=== PATIENT | female | born 1930 ===

== ENCOUNTER 2018-01-30 10:21 | Emergency (ER) | payer MEDICARE, OTHER ==
[2018-01-30 10:21] VITALS: BMI 29.4
[2018-01-30 10:37] VITALS: O2SAT 96
[2018-01-30] MEDS ORDERED: Albuterol 0.083% Inhal Sol (2.5 mg/3 mL) UD IH STA (11:20)
[2018-01-30] MEDS ORDERED: Albuterol 0.083% Inhal Sol (2.5 mg/3 mL) UD ONE (11:28)
[2018-01-30 11:39] VITALS: RESP 18
--- NOTE | 2018-01-30 11:48 | CT ---
PROCEDURE: CT HEAD WITHOUT CONTRAST. HISTORY: head injury after fall COMPARISON: None available. TECHNIQUE: Axial computed tomography images were obtained through the head/brain without intravenous contrast. Radiation dose: Total exam DLP = 700.8 mGy-cm. This CT exam was performed using one or more of the following dose reduction techniques: Automated exposure control, adjustment of the mA and/or kV according to patient size, and/or use of iterative reconstruction technique. FINDINGS: HEMORRHAGE: No intracranial hemorrhage. BRAIN: No mass effect or edema. Atrophy. Chronic microvascular ischemic changes. VENTRICLES: Unremarkable. No hydrocephalus. CALVARIUM: Unremarkable. PARANASAL SINUSES: Unremarkable as visualized. No significant inflammatory changes. MASTOID AIR CELLS: Unremarkable as visualized. No inflammatory changes. OTHER FINDINGS: None. IMPRESSION: No acute intracranial pathology. Age-related changes.
--- NOTE | 2018-01-30 12:16 | RAD ---
PROCEDURE: Radiographs of the Right Shoulder HISTORY: right shoulder pain after fall COMPARISON: Not available FINDINGS: BONES: Comminuted fracture left femoral neck and. Minimally displaced fracture greater tuberosity. No dislocation. JOINTS: Glenoid grossly intact. Glenohumeral articulation and acromioclavicular articulation appear intact. SOFT TISSUES: Normal. OTHER FINDINGS: None. IMPRESSION: Comminuted minimally displaced fracture left femoral neck and head.
--- NOTE | 2018-01-30 12:18 | RAD ---
PROCEDURE: CHEST RADIOGRAPH, 1 VIEW HISTORY: sob, wheezing COMPARISON: None available. FINDINGS: LUNGS: Clear. PLEURA: No pneumothorax or pleural fluid seen. CARDIOVASCULAR: Normal. OSSEOUS STRUCTURES: Nondisplaced comminuted fracture right femoral neck and head. VISUALIZED UPPER ABDOMEN: Normal. OTHER FINDINGS: None. IMPRESSION: No acute infiltrate.
[2018-01-30 12:33] VITALS: BP 134/68; PULSE 82; TEMP 97.7
--- NOTE | 2018-01-30 12:41 | RAD ---
PROCEDURE: Radiographs of the right elbow. HISTORY: right elbow pain after fall COMPARISON: No prior. FINDINGS: BONES: Normal. No fracture. JOINTS: Normal. No osteoarthritis. SOFT TISSUES: Normal. JOINT EFFUSION: None. OTHER FINDINGS: None. IMPRESSION: Unremarkable radiographs of the right elbow.
--- NOTE | 2018-01-30 12:43 | RAD ---
PROCEDURE: Right Wrist Radiographs. HISTORY: right wirst pain after fall COMPARISON: None. FINDINGS: BONES: Normal. No fracture. JOINTS: Normal. No dislocation. SOFT TISSUES: Normal. OTHER FINDINGS: None. IMPRESSION: Normal right wrist radiographs.
--- NOTE | 2018-01-30 12:43 | RAD ---
PROCEDURE: Right Knee Radiographs. HISTORY: right knee pain after fall COMPARISON: None. FINDINGS: BONES: Normal. No fracture. JOINTS: Normal. No osteoarthritis. JOINT EFFUSION: None. OTHER FINDINGS: None. IMPRESSION: Normal radiographs of the right knee.
--- NOTE | 2018-01-30 12:45 | C.PDOC ---
History Of Present Illness 87-year-old female, PMHx includes asthma, presents to the emergency department for evaluation after a fall last night. Patient has a Hx of chronic dizziness and occasional fall because of it. Patient fell on the right side of her head, and is unsure of loss of consciousness. She is currently complaining of right arm and right shoulder pain. She is also complaining of mild shortness of breath and wheezing. No other complaints at this time. Time Seen by Provider: 01/30/18 10:58 Chief Complaint (Nursing): Dizziness/Lightheaded History Per: Patient History/Exam Limitations: no limitations Past Medical History Reviewed: Historical Data, Nursing Documentation, Vital Signs Vital Signs: Last Vital Signs Temp 97.7 F 01/30/18 12:32 Pulse 82 01/30/18 12:32 Resp 18 01/30/18 12:32 BP 134/68 01/30/18 12:32 Pulse Ox 96 01/30/18 16:11 - Medical History PMH: Arthritis, Asthma, Depression, Emphysema Surgical History: Appendectomy, Cholecystectomy Family History: States: No Known Family Hx - Social History Hx Tobacco Use: No Hx Alcohol Use: No Hx Substance Use: No - Immunization History Hx Tetanus Toxoid Vaccination: (k) Hx Influenza Vaccination: No Hx Pneumococcal Vaccination: Yes (2016) Review Of Systems Constitutional: Negative for: Fever Cardiovascular: Negative for: Chest Pain Respiratory: Positive for: Shortness of Breath, Wheezing Gastrointestinal: Negative for: Nausea, Vomiting Musculoskeletal: Positive for: Shoulder Pain, Arm Pain Neurological: Positive for: Dizziness. Negative for: Weakness, Numbness Physical Exam - Physical Exam Appears: Non-toxic, No Acute Distress, Other (moderate pain) Skin: Warm, Dry, No Rash Head: Atraumatic, Normacephalic Eye(s): bilateral: Normal Inspection, PERRL, EOMI Nose: Normal Oral Mucosa: Moist Lips: Normal Appearing Neck: Normal ROM Chest: Symmetrical Cardiovascular: Rhythm Regular, Murmur (3/6 systolic) Respiratory: No Accessory Muscle Use, Wheezing (mild, expiratory B/L) Extremity: Normal ROM, Tenderness (mild tenderness to palpation of the right elbow, wrist and knee. No deformity or swelling. There is some ecchymosis to the right knee), No Deformity, No Swelling Pulses: Left Radial: Normal, Right Radial: Normal Neurological/Psych: Oriented x3, Normal Speech ED Course And Treatment O2 Sat by Pulse Oximetry: 96 (RA) Pulse Ox Interpretation: Normal - Other Rad CXR X-Ray: Viewed By Me, Read By Radiologist Interpretation: Accession No. : [id number]. Patient Name / ID : MURALI HANDLEY / [id number]. Exam Date : 01/30/2018 11:31:46 ( Approved ). Study Comment : Sex / Age : F / 87Y. Creator : Han Bobo MD. Dictator : Han Bobo MD. Manager Massage Department : Director Immunology : Han Bobo MD. Approver2 : Report Date : 01/30/2018 12:17:02. My Comment : . PROCEDURE: CHEST RADIOGRAPH, 1 VIEW. HISTORY: sob, wheezing. COMPARISON: None available. FINDINGS: LUNGS: Clear. PLEURA: No pneumothorax or pleural fluid seen. CARDIOVASCULAR: Normal. OSSEOUS STRUCTURES: Nondisplaced comminuted fracture right femoral neck and head. VISUALIZED UPPER ABDOMEN: Normal. OTHER FINDINGS: None. IMPRESSION: No acute infiltrate. elbow xr X-Ray: Viewed By Me, Read By Radiologist Interpretation: Accession No. : [id number]. Patient Name / ID : MURALI HANDLEY / [id number]. Exam Date : 01/30/2018 11:52:05 ( Approved ). Study Comment : Sex / Age : F / 87Y. Creator : Han Bobo MD. Dictator : Han Bobo MD. Manager Massage Department : Director Immunology : Han Bobo MD. Approver2 : Report Date : 01/30/2018 12:39:50. My Comment : . PROCEDURE: Radiographs of the right elbow. HISTORY: right elbow pain after fall. COMPARISON: No prior. FINDINGS: BONES: Normal. No fracture. JOINTS: Normal. No osteoarthritis. SOFT TISSUES: Normal. JOINT EFFUSION: None. OTHER FINDINGS: None. IMPRESSION: Unremarkable radiographs of the right elbow. Shoulder xr X-Ray: Viewed By Me, Read By Radiologist Interpretation: Accession No. : [id number]. Patient Name / ID : MURALI HANDLEY / [id number]. Exam Date : 01/30/2018 11:46:05 ( Approved ). Study Comment : Sex / Age : F / 87Y. Creator : Han Bobo MD. Dictator : Han Bobo MD. Manager Massage Department : Director Immunology : Han Bobo MD. Approver2 : Report Date : 01/30/2018 12:15:11. My Comment : . PROCEDURE: Radiographs of the Right Shoulder. HISTORY: right shoulder pain after fall. COMPARISON: Not available. FINDINGS: BONES: Comminuted fracture left femoral neck and. Minimally displaced fracture greater tuberosity. No dislocation. JOINTS: Glenoid grossly intact. Glenohumeral articulation and acromioclavicular articulation appear intact. SOFT TISSUES: Normal. OTHER FINDINGS: None. IMPRESSION: Comminuted minimally displaced fracture left femoral neck and head. XR KNEE X-Ray: Viewed By Me, Read By Radiologist Interpretation: Accession No. : [id number]. Patient Name / ID : MURALI HANDLEY / [id number]. Exam Date : 01/30/2018 12:20:10 ( Approved ). Study Comment : Sex / Age : F / 87Y. Creator : Han Bobo MD. Dictator : Han Bobo MD. Manager Massage Department : Director Immunology : Han Bobo MD. Approver2 : Report Date : 01/30/2018 12:42:38. My Comment : . PROCEDURE: Right Knee Radiographs. HISTORY: right knee pain after fall. COMPARISON: None. FINDINGS: BONES: Normal. No fracture. JOINTS: Normal. No osteoarthritis. JOINT EFFUSION: None. OTHER FINDINGS: None. IMPRESSION: Normal radiographs of the right knee. XR WRIST X-Ray: Viewed By Me, Read By Radiologist Interpretation: Accession No. : [id number]. Patient Name / ID : MURALI HANDLEY / [id number]. Exam Date : 01/30/2018 12:16:10 ( Approved ). Study Comment : Sex / Age : F / 87Y. Creator : Han Bobo MD. Dictator : Han Bobo MD. Manager Massage Department : Director Immunology : Han Bobo MD. Approver2 : Report Date : 01/30/2018 12:41:59. My Comment : . PROCEDURE: Right Wrist Radiographs. . HISTORY: right wirst pain after fall. COMPARISON: None. FINDINGS: BONES: Normal. No fracture. JOINTS: Normal. No dislocation. SOFT TISSUES: Normal. OTHER FINDINGS: None. IMPRESSION: Normal right wrist radiographs. - CT Scan/US CT head Other Rad Studies (CT/US): Read By Radiologist, Radiology Report Reviewed CT/US Interpretation: Accession No. : [id number]. Patient Name / ID : MURALI HANDLEY / [id number]. Exam Date : 01/30/2018 11:38:37 ( Approved ). Study Comment : Sex / Age : F / 87Y. Creator : Mily Myers. Dictator : Cristóbal Vogt MD. Manager Massage Department : Director Immunology : Cristóbal Vogt MD. Approver2 : Report Date : 01/30/2018 11:45:37. My Comment : . PROCEDURE: CT HEAD WITHOUT CONTRAST. HISTORY: head injury after fall. COMPARISON: None available. TECHNIQUE: Axial computed tomography images were obtained through the head/brain without intravenous contrast. Radiation dose: Total exam DLP = 700.8 mGy-cm. This CT exam was performed using one or more of the following dose reduction techniques: Automated exposure control, adjustment of the mA and/or kV according to patient size, and/or use of iterative reconstruction technique. FINDINGS: HEMORRHAGE: No intracranial hemorrhage. BRAIN: No mass effect or edema. Atrophy. Chronic microvascular ischemic changes. VENTRICLES: Unremarkable. No hydrocephalus. CALVARIUM: Unremarkable. PARANASAL SINUSES: Unremarkable as visualized. No significant inflammatory changes. MASTOID AIR CELLS: Unremarkable as visualized. No inflammatory changes. OTHER FINDINGS: None. IMPRESSION: No acute intracranial pathology. Age-related changes. Progress Note: CT Head, Chest XR, XR Knee, elbow XR, shoulder XR, wrist XR ordered and reviewed. Patient treayed with Albuterol, Tylenol and prednisone. Pts arm placed in sling, instructed to f.u with ortho outpatient. All questions answered Disposition Counseled Patient/Family Regarding: Studies Performed, Diagnosis, Need For Followup, Rx Given - Disposition Referrals: [facility] at [place] [Outside] [facility] [place] [facility] [Outside] Disposition: HOME/ ROUTINE Disposition Time: 13:05 Condition: STABLE Additional Instructions: FOLLOW UP WITH ORTHOPEDICS WITHIN 1 WEEK USE MEDICATIONS DIRECTED RETURN TO EMERGENCY ROOM IF SYMPTOMS WORSEN SEGUIMIENTO CON ORTOPEDIA DENTRO DE 1 SEMANA USE MEDICAMENTOS SEGN LO INDICADO REGRESE AL SISSY DE EMERGENCIA SI LOS SNTOMAS EMPEORAN Prescriptions: Acetaminophen [Tylenol 325mg tab] 650 mg PO Q6 PRN #30 tab PRN Reason: pain/fever Acetaminophen with Codeine [Tylenol with Codeine #3 Tablet] 1 each PO Q6 PRN # 12 tablet PRN Reason: pain Albuterol HFA [Ventolin HFA 90 mcg/actuation (8 g)] 0.09 mg IH Q4 PRN #1 puff PRN Reason: Wheezing predniSONE [predniSONE Tab] 40 mg PO DAILY #6 tab Instructions: Asthma, Adult (DC), Shoulder Fracture (DC) Forms: [employer] (Malay) Print Language: FAROESE - POA Present On Arrival: None - Clinical Impression Clinical Impression: Closed right humeral fracture, Head injury, Closed head injury, Contusion of knee, right - Scribe Statement The provider has reviewed the documentation as recorded by the Scribe (Bridger Marks) All medical record entries made by the Scribe were at my direction and personally dictated by me. I have reviewed the chart and agree that the record accurately reflects my personal performance of the history, physical exam, medical decision making, and the department course for this patient. I have also personally directed, reviewed, and agree with the discharge instructions and disposition.
== END 2018-01-30 13:20 | disposition home or self-care (01) ==
LOC: C.ER 10:21
DX: S09.90XA Unspecified injury of head, initial encounter (principal); S42.301A Unspecified fracture of shaft of humerus, right arm, initial encounter for closed fracture; S80.01XA Contusion of right knee, initial encounter; W18.30XA Fall on same level, unspecified, initial encounter; Z91.81 History of falling; Y92.9 Unspecified place or not applicable; J45.909 Unspecified asthma, uncomplicated

== ENCOUNTER 2018-09-16 08:43 | Inpatient (IN) | payer MEDICARE, OTHER ==
[2018-09-16 08:43] VITALS: BMI 29.4
[2018-09-16] MEDS ORDERED: Sodium Bicarbonate (8.4%) 50 Meq Syringe ONE (09:05)
[2018-09-16] MEDS ORDERED: EPINEPHrine 1 mg/ml (1:1000) Inj ONE (09:05)
[2018-09-16 09:28] LABS: URINE BACTERIA RARE (<OCC); URINE BILIRUBIN NEGATIVE (NEGATIVE); URINE BLOOD 1+ (NEGATIVE); URINE CLARITY Clear (Clear); URINE COLOR Amber (YELLOW); URINE GLUCOSE (UA) NORMAL (Normal); URINE LEUKOCYTE ESTERASE NEG Leu/uL (Negative); URINE PROTEIN NEGATIVE (NEGATIVE)
[2018-09-16 09:31] LABS: ALB/GLOB RATIO 1.4 (1.0-2.1); ALBUMIN 3.9 g/dL (3.5-5.0); CALCIUM 8.1 mg/dl (8.6-10.4)
[2018-09-16 09:39] LABS: VENOUS BLOOD GAS BASE EXCESS -15.1 mmol/L (0.0-2.0); VENOUS BLOOD GAS PCO2 97 mmHg (40-60); VENOUS BLOOD GAS PO2 25 mm/Hg (30-55); VENOUS BLOOD PH 6.91 (7.32-7.43)
--- NOTE | 2018-09-16 09:47 | RAD ---
Date of service: 09/16/2018 PROCEDURE: CHEST RADIOGRAPH, 1 VIEW HISTORY: SOB COMPARISON: 01/30/2018 FINDINGS: LUNGS: Clear. PLEURA: No pneumothorax or pleural fluid seen. CARDIOVASCULAR: No aortic atherosclerotic calcification present. Normal heart size. ET tube appropriately positioned with its tip approximately 2.1 cm above tracheal simón. OSSEOUS STRUCTURES: No significant abnormalities. VISUALIZED UPPER ABDOMEN: Normal. OTHER FINDINGS: None. IMPRESSION: No infiltrate. ET tube appropriately positioned. Otherwise unremarkable.
--- NOTE | 2018-09-16 09:47 | C.PDOC ---
History Of Present Illness 87 year old female, whose past medical history includes asthma and hypertension, is brought to the ED by ambulance for evaluation of altered mental status noted by family prior to arrival. As per family, patient has been hypertensive lately and seemed to be delusional last night. Patient was found unresponsive today and was intubated in field. Family denies cough on patient's behalf. Additional information limited secondary to patient's clinical condition. Time Seen by Provider: 09/16/18 08:48 Chief Complaint (Nursing): Respiratory Distress History Per: EMS, Family History/Exam Limitations: clinical condition Onset/Duration Of Symptoms: Hrs Current Symptoms Are (Timing): Still Present Past Medical History Reviewed: Historical Data, Nursing Documentation, Vital Signs Vital Signs: Last Vital Signs Temp 99.8 F H 09/16/18 08:50 Pulse 158 H 09/16/18 08:50 Resp 18 09/16/18 08:50 BP 137/70 09/16/18 08:50 Pulse Ox 98 09/16/18 08:50 - Medical History PMH: Arthritis, Asthma, Depression, Emphysema Surgical History: Appendectomy, Cholecystectomy Family History: States: Unknown Family Hx - Social History Hx Tobacco Use: No Hx Alcohol Use: No Hx Substance Use: No - Immunization History Hx Tetanus Toxoid Vaccination: (unk) Hx Influenza Vaccination: No Hx Pneumococcal Vaccination: Yes (2017) Review Of Systems Review Of Systems: ROS cannot be obtained secondary to pt's inabilty to answer questions. Physical Exam - Physical Exam Appears: Other (in respiratory distress ) Skin: Warm, Dry, Other (mottled skin ) Head: Atraumatic, Normacephalic Eye(s): bilateral: Normal Inspection Oral Mucosa: Moist Throat: Other (7.0 ET tube- 24 at lipline ) Neck: Supple Chest: Symmetrical, No Deformity, No Tenderness Cardiovascular: Rhythm Regular, No Murmur Respiratory: Other (breath sounds present bilaterally ) Gastrointestinal/Abdominal: Other (protuberant abdomen ) Extremity: Capillary Refill (less than 2 seconds ) Neurological/Psych: Other (altered, unconscious ) ED Course And Treatment - Laboratory Results Result Diagrams: 09/16/18 16:17 09/16/18 09:13 O2 Sat by Pulse Oximetry: 98 Critical Care Time - Critical Care Note Total Time (in mins): 60 Documented critical care: time excludes all time spent performing seperately billable procedures. Medical Decision Making Medical Decision Making: Assessment: respiratory distress Plan: * bloodwork * urinalysis * CT Head * CXR * EKG * reassess and disposition Progress: Bloodwork, urinalysis, CT Head, CXR, EKG ordered and reviewed. Case discussed with Dr. Reich (Information Systems Manager design and sales consultant), who evaluated the patient at bedside and accepts to ICU. First EKG read: Sinus Tachycardia at rate 157bpm. Normal intervals, normal axis. T wave inversions in leads III and aVF. Patient went into cardiac arrest. Pulses was re-established. Second EKG read: Sinus Tachycardia at rate 127bpm. Right bundle branch block. Left posterior vesicular block. Case discussed with Dr. Balderas, who states patient is not a code heart or union laborer candidate. Dr. Reich (Information Systems Manager) and Dr. Marguerite Zhong (Hospitalist) are at bedside, and will assume the care of the patient. Disposition Counseled Patient/Family Regarding: Studies Performed, Diagnosis - Disposition Disposition: HOSPITALIZED Disposition Time: 11:00 Condition: SERIOUS - Clinical Impression Clinical Impression: Cardiac arrest - Scribe Statement The provider has reviewed the documentation as recorded by the Scribe (Avis Zhong) Provider Attestation: All medical record entries made by the Scribe were at my direction and personally dictated by me. I have reviewed the chart and agree that the record accurately reflects my personal performance of the history, physical exam, medical decision making, and the department course for this patient. I have also personally directed, reviewed, and agree with the discharge instructions and disposition.
[2018-09-16] MEDS ORDERED: Sodium Bicarbonate (8.4%) 50 Meq Syringe IVP ONE (09:58)
[2018-09-16] MEDS: WATER IVP SCH ×2 (09:59→11:58)
[2018-09-16] MEDS: SODIUM BICARBONATE IVP SCH ×2 (09:59→11:58)
[2018-09-16] MEDS: DEXTROSE 5% IVP SCH ×2 (09:59→11:58)
--- NOTE | 2018-09-16 10:08 | CP.PCM.CON ---
History of Present Illness - History of Present Illness History of Present Illness: ICU Consult Note for Dr. Reich 87 y/o female with PMHx of asthma, osteoporosis and osteoarthritis presents to the ED unconscious via EMS. Patient's son and daughter came with via EMS. Per daughter, Yanet, patient was found unconscious this morning. Last night, patient was wheezing in her sleep. However, Yanet states that it is nothing atypical as she has an extensive 50 year history of asthma. She denies her having any increased signs and symptoms of asthma exacerbation before she went to bed. Patient was admitted once to the hospital for asthma exacerbation last year per Yanet. Of note, for the past three days, patient had poor PO intake and required assistance to get out of bed. She was nearly bedbound for the past 3 days with the exception of going to the bathroom, which required assistance. At baseline, she is able to walk around the house. Yanet and her brother both think her recent behavior is atypical for her. They do not have any idea what caused her poor PO intake and staying in bed. Yanet has mentioned that patient recently started Sertraline 50 mg PO since her physician thought she was depressed. Otherwise she has been taking her routine medications for asthma. ROS unable to be obtained due to patient condition. Patient intubated and unconscious. History taken via Yanet, daughter. ED course: labs, CT head, troponin, ACLS protocol, UA/Ucx, insertion of right femoral TLC Outpatient physicians: [facility] Dud[facility] PMHx: as stated above PSHx: appy, clara FHx: denies SocHx: No EtOH, tob, or illicit drug use Meds: albuterol, spiriva, symbicort, prednisone daily via inhalers. Sertraline 50 mg PO. Allergies: PCN, Sulfa Review of Systems - Review of Systems Systems not reviewed;Unavailable: Acuity of Condition, Intubated Past Patient History - Past Social History Smoking Status: Never Smoked - PULMONARY Hx Asthma: Yes Hx Emphysema: Yes - MUSCULOSKELETAL/RHEUMATOLOGICAL Hx Arthritis: Yes - PSYCHIATRIC Hx Depression: Yes Hx Substance Use: No - SURGICAL HISTORY Hx Appendectomy: Yes Hx Cholecystectomy: Yes - ANESTHESIA Hx Anesthesia: Yes Hx Anesthesia Reactions: No Meds Allergies/Adverse Reactions: Allergies Allergy/AdvReac Type Severity Reaction Status Date / Time Penicillins Allergy Verified 09/16/18 09:13 sulfa Allergy Uncoded 09/16/18 09:13 Physical Exam - Constitutional Appears: Other (unconscious, intubated) - Head Exam Head Exam: ATRAUMATIC, NORMAL INSPECTION, NORMOCEPHALIC - ENT Exam Additional comments: Patient with dentures removed for intubation - Neck Exam Neck exam: Positive for: Normal Inspection - Respiratory Exam Respiratory Exam: Wheezes (bilaterally) - Cardiovascular Exam Cardiovascular Exam: Tachycardia - GI/Abdominal Exam GI & Abdominal Exam: Soft. absent: Guarding, Rebound, Tenderness - Extremities Exam Extremities exam: Positive for: normal capillary refill, normal inspection, pedal pulses present. Negative for: calf tenderness - Back Exam Back exam: NORMAL INSPECTION - Neurological Exam Neurological exam: Altered (unconscious w/o sedation) - Skin Skin Exam: Dry, Intact, Normal Color Results - Vital Signs Recent Vital Signs: Last Vital Signs Temp 99.8 F H 09/16/18 08:50 Pulse 158 H 09/16/18 08:50 Resp 18 09/16/18 08:50 BP 137/70 09/16/18 08:50 Pulse Ox 98 09/16/18 09:47 - Labs Result Diagrams: 09/16/18 10:05 09/16/18 09:13 Labs: Laboratory Results - last 24 hr 09/16/18 09/16/18 09/16/18 08:53 09:13 09:18 pO2 VBG pH VBG pCO2 VBG HCO3 VBG Total CO2 VBG O2 Sat (Calc) VBG Base Excess VBG Potassium Glucose Lactate Crit Value Called To Crit Value Called By Crit Value Read Back Blood Gas Notified Time Sodium 128 L Potassium 3.7 Chloride 91 L Carbon Dioxide 23 Anion Gap 17 BUN 27 H Creatinine 2.3 H Est GFR ( Amer) 24 Est GFR (Non-Af Amer) 20 POC Glucose (mg/dL) 224 H Random Glucose 202 H D Calcium 8.1 L Magnesium 2.5 H Total Bilirubin 1.0 AST 39 H ALT 30 Alkaline Phosphatase 93 NT-Pro-B Natriuret Pep 2640 H Total Protein 6.6 Albumin 3.9 Globulin 2.7 Albumin/Globulin Ratio 1.4 TSH 3rd Generation 0.30 L Venous Blood Potassium Urine Color Clara Urine Clarity Clear Urine pH 6.0 Ur Specific [place] 1.010 Urine Protein Negative Urine Glucose (UA) Normal Urine Ketones Negative Urine Blood 1+ H Urine Nitrate Positive H Urine Bilirubin Negative Urine Urobilinogen 4.0 H Ur Leukocyte Esterase Neg Urine WBC (Auto) 6 H Urine RBC (Auto) 11 H Urine Bacteria Rare 09/16/18 09:36 pO2 25 L VBG pH 6.91 L* VBG pCO2 97 H* VBG HCO3 10.9 VBG Total CO2 22.4 VBG O2 Sat (Calc) 28.0 L VBG Base Excess -15.1 L VBG Potassium 3.1 L Glucose 228 H Lactate 5.4 H* Crit Value Called To Crit Value Called By Abraham bernardo,mannequin sander and finisher Crit Value Read Back Y Blood Gas Notified Time 945 Sodium 130.0 L Potassium Chloride 97.0 L Carbon Dioxide Anion Gap BUN Creatinine Est GFR ( Amer) Est GFR (Non-Af Amer) POC Glucose (mg/dL) Random Glucose Calcium Magnesium Total Bilirubin AST ALT Alkaline Phosphatase NT-Pro-B Natriuret Pep Total Protein Albumin Globulin Albumin/Globulin Ratio TSH 3rd Generation Venous Blood Potassium 3.1 L Urine Color Urine Clarity Urine pH Ur Specific [place] Urine Protein Urine Glucose (UA) Urine Ketones Urine Blood Urine Nitrate Urine Bilirubin Urine Urobilinogen Ur Leukocyte Esterase Urine WBC (Auto) Urine RBC (Auto) Urine Bacteria Assessment & Plan - Assessment and Plan (Free Text) Assessment: 87 y/o female with PMHx of asthma, osteoporosis and osteoarthritis presents to the ED unconscious via EMS. Patient intubated and ACLS protocol completed. Patient stabilized and sent to ICU for further medical management. Neuro -patient unconscious on presentation -intubated but not sedated, not alert or awake -CT head pending -Consider CTA CV -s/p cardiac arrest with ACLS protocol: bradycardia, epi x 2, Calcium gluconate, epi. R femoral TLC inserted in ED. -EKG: sinus tachycardia -pending serial trops - first positive. BNP 2640. Family denies cardiac hx. -cardio consult on board Dr. Ray, follow recs -ECHO pending GI -NPO -no acute issues Pulm -vent settings: PRVC rate 20, FiO2 100%, TV 450, PEEP 5 -ABG in ED: pH 7.06, pO2 74, pCO2 25, HCO3 7.6, O2 sat 95.9, metabolic acidosis -history of asthma: hold home meds -daily serial ABG and CXR when intubated Renal -Patient with pos nitrates and WBC in urine, pending urine cx -Renal injury evidenced on BUN/Cr on admission 27/2.3 -trend CMP daily Heme -consider heparin drip if CT head negative for hemmorhage -normocytic anemia on admission 9.7/28.7, but not on past records in 2013 -trend CBC daily ID -leukocytosis on admission 14.3 and evidence of UTI -pending urine cx and blood cx -start ceftriaxone 1g IV daily DVT ppx: pending CT head, possible heparin GI ppx: protonix 40 mg IV case discussed w/ Dr. Reich, ICU attending and Dr. Jc Bernardo, hospitalist Saige Hunt PGY1
[2018-09-16 10:10] LABS: BASO # 0.1 K/uL (0.0-0.2); BASO % 0.4 % (0.0-2.0); EOS % 0.1 % (0.0-4.0); HEMOGLOBIN 9.7 g/dL (11.0-16.0); LYMPH # 2.6 K/uL (1.0-4.3); LYMPH % 17.8 % (20.0-40.0); MEAN CORPUSCULAR HEMOGLOBIN 30.6 pg (27.0-31.0); MEAN CORPUSCULAR HGB CONC 33.6 g/dL (33.0-37.0); MEAN PLATELET VOLUME 7.6 fL (7.2-11.7); MONO # 0.5 K/uL (0.0-0.8); MONO % 3.8 % (0.0-10.0); NEUT # 11.1 K/uL (1.8-7.0); NEUT % 77.9 % (50.0-75.0); RBC 3.15 Mil/uL (3.80-5.20); RED CELL DISTRIBUTION WIDTH 12.9 % (11.5-14.5)
[2018-09-16 10:11] LABS: WHITE BLOOD COUNT 14.3 K/uL (4.8-10.8)
[2018-09-16] MEDS ORDERED: Sodium Bicarbonate (8.4%) 50 Meq Syringe IVP SCH (10:15)
[2018-09-16 10:19] LABS: ABG ALLEN TEST POS; ARTERIAL BLOOD GAS HCO3 7.6 mmol/L (21-28); ARTERIAL BLOOD GAS O2 SAT 95.9 % (95-98); ARTERIAL BLOOD GAS PCO2 25 mm/Hg (35-45); ARTERIAL BLOOD GAS PH 7.06 (7.35-7.45); ARTERIAL BLOOD GAS PO2 74 mm/Hg (80-100); ARTERIAL BLOOD GAS TCO2 7.9 mmol/L (22-28)
[2018-09-16] MEDS ORDERED: DOPamine 400mg/250ml D5W 400 MG/250 ML BAG IV PRN (10:25)
[2018-09-16] MEDS ORDERED: DOPamine 400mg/250ml D5W 400 MG/250 ML BAG IV ONE (10:29)
[2018-09-16 10:34] LABS: INR 1.6; PROTHROMBIN TIME 17.6 SECONDS (9.7-12.2)
[2018-09-16 10:34] LABS: TROPONIN I 0.181 ng/mL (0.00-0.120)
--- NOTE | 2018-09-16 11:15 | CP.PCM.HP ---
<Saige Hunt - Last Filed: 09/16/18 11:15> History of Present Illness - History of Present Illness History of Present Illness: Medicine History and Physical for Dr. Marguerite Bernardo 87 y/o female with PMHx of asthma, osteoporosis and osteoarthritis presents to the ED unconscious via EMS. Patient's son and daughter came with via EMS. Per daughter, Yanet, patient was found unconscious this morning. Last night, patient was wheezing in her sleep. However, Yanet states that it is nothing atypical as she has an extensive 50 year history of asthma. She denies her having any increased signs and symptoms of asthma exacerbation before she went to bed. Patient was admitted once to the hospital for asthma exacerbation last year per Yanet. Of note, for the past three days, patient had poor PO intake and required assistance to get out of bed. She was nearly bedbound for the past 3 days with the exception of going to the bathroom, which required assistance. At baseline, she is able to walk around the house. Yanet and her brother both think her recent behavior is atypical for her. They do not have any idea what caused her poor PO intake and staying in bed. Yanet has mentioned that patient recently started Sertraline 50 mg PO since her physician thought she was depressed. Otherwise she has been taking her routine medications for asthma. ROS unable to be obtained due to patient condition. Patient intubated and unconscious. History taken via Yanet, daughter. ED course: labs, CT head, troponin, ACLS protocol, UA/Ucx, insertion of right femoral TLC Outpatient physicians: [facility] Dudley ([facility] PMHx: as stated above PSHx: appy, clara FHx: denies SocHx: No EtOH, tob, or illicit drug use Meds: albuterol, spiriva, symbicort, prednisone daily via inhalers. Sertraline 50 mg PO. Allergies: PCN, Sulfa Present on Admission - Present on Admission Any Indicators Present on Admission: Yes Review of Systems - Review of Systems Systems not reviewed;Unavailable: Acuity of Condition, Intubated Past Patient History - Past Social History Smoking Status: Never Smoked - PULMONARY Hx Asthma: Yes Hx Emphysema: Yes - MUSCULOSKELETAL/RHEUMATOLOGICAL Hx Arthritis: Yes - PSYCHIATRIC Hx Depression: Yes Hx Substance Use: No - SURGICAL HISTORY Hx Appendectomy: Yes Hx Cholecystectomy: Yes - ANESTHESIA Hx Anesthesia: Yes Hx Anesthesia Reactions: No Meds Allergies/Adverse Reactions: Allergies Allergy/AdvReac Type Severity Reaction Status Date / Time Penicillins Allergy Verified 09/16/18 09:13 sulfa Allergy Uncoded 09/16/18 09:13 Physical Exam - Constitutional Appears: Other (unconscious w/o sedation, intubated) - Head Exam Head Exam: ATRAUMATIC, NORMAL INSPECTION, NORMOCEPHALIC - Eye Exam Eye Exam: PERRL - ENT Exam Additional comments: dentures removed for intubation - Neck Exam Neck exam: Positive for: Normal Inspection - Respiratory Exam Respiratory Exam: Wheezes (bilateral) - Cardiovascular Exam Cardiovascular Exam: Tachycardia - GI/Abdominal Exam GI & Abdominal Exam: Soft. absent: Firm, Guarding, Rebound - Extremities Exam Extremities exam: Positive for: normal capillary refill, normal inspection, pedal pulses present. Negative for: calf tenderness, tenderness - Back Exam Back exam: NORMAL INSPECTION - Neurological Exam Neurological exam: Altered (unconscious w/o sedation) - Skin Skin Exam: Dry, Intact, Normal Color Results - Vital Signs Recent Vital Signs: Last Vital Signs Temp 99.8 F H 09/16/18 08:50 Pulse 152 H 09/16/18 10:29 Resp 20 09/16/18 10:29 BP 87/46 L 09/16/18 10:29 Pulse Ox 96 09/16/18 10:29 - Labs Result Diagrams: 09/16/18 10:05 09/16/18 09:13 Labs: Laboratory Results - last 24 hr 09/16/18 09/16/18 09/16/18 08:53 09:13 09:18 WBC RBC Hgb Hct MCV MCH MCHC RDW Plt Count MPV Neut % (Auto) Lymph % (Auto) [place] % (Auto) Eos % (Auto) Baso % (Auto) Neut # (Auto) Lymph # (Auto) [place] # (Auto) Eos # (Auto) Baso # (Auto) PT INR APTT Puncture Site pCO2 pO2 HCO3 ABG pH ABG Total CO2 ABG O2 Saturation ABG Base Excess Bebo Test ABG Potassium VBG pH VBG pCO2 VBG HCO3 VBG Total CO2 VBG O2 Sat (Calc) VBG Base Excess VBG Potassium A-a O2 Difference Respiratory Index Glucose Lactate Vent Mode Mechanical Rate FiO2 Tidal Volume PEEP Crit Value Called To Crit Value Called By Crit Value Read Back Blood Gas Notified Time Sodium 128 L Potassium 3.7 Chloride 91 L Carbon Dioxide 23 Anion Gap 17 BUN 27 H Creatinine 2.3 H Est GFR ( Amer) 24 Est GFR (Non-Af Amer) 20 POC Glucose (mg/dL) 224 H Random Glucose 202 H D Calcium 8.1 L Magnesium 2.5 H Total Bilirubin 1.0 AST 39 H ALT 30 Alkaline Phosphatase 93 Troponin I 0.1810 H* NT-Pro-B Natriuret Pep 2640 H Total Protein 6.6 Albumin 3.9 Globulin 2.7 Albumin/Globulin Ratio 1.4 TSH 3rd Generation 0.30 L Arterial Blood Potassium Venous Blood Potassium Urine Color Clara Urine Clarity Clear Urine pH 6.0 Ur Specific Watts 1.010 Urine Protein Negative Urine Glucose (UA) Normal Urine Ketones Negative Urine Blood 1+ H Urine Nitrate Positive H Urine Bilirubin Negative Urine Urobilinogen 4.0 H Ur Leukocyte Esterase Neg Urine WBC (Auto) 6 H Urine RBC (Auto) 11 H Urine Bacteria Rare 09/16/18 09/16/18 09/16/18 09:36 10:05 10:05 WBC 14.3 H D RBC 3.15 L Hgb 9.7 L Hct 28.7 L MCV 91.0 D MCH 30.6 MCHC 33.6 RDW 12.9 Plt Count 212 D MPV 7.6 Neut % (Auto) 77.9 H Lymph % (Auto) 17.8 L [place] % (Auto) 3.8 Eos % (Auto) 0.1 Baso % (Auto) 0.4 Neut # (Auto) 11.1 H Lymph # (Auto) 2.6 [place] # (Auto) 0.5 Eos # (Auto) 0.0 Baso # (Auto) 0.1 PT 17.6 H INR 1.6 APTT 49 H Puncture Site pCO2 pO2 25 L HCO3 ABG pH ABG Total CO2 ABG O2 Saturation ABG Base Excess Bebo Test ABG Potassium VBG pH 6.91 L* VBG pCO2 97 H* VBG HCO3 10.9 VBG Total CO2 22.4 VBG O2 Sat (Calc) 28.0 L VBG Base Excess -15.1 L VBG Potassium 3.1 L A-a O2 Difference Respiratory Index Glucose 228 H Lactate 5.4 H* Vent Mode Mechanical Rate FiO2 Tidal Volume PEEP Crit Value Called To Crit Value Called By Abraham bernardo,mint machine operator Crit Value Read Back Y Blood Gas Notified Time 945 Sodium 130.0 L Potassium Chloride 97.0 L Carbon Dioxide Anion Gap BUN Creatinine Est GFR ( Amer) Est GFR (Non-Af Amer) POC Glucose (mg/dL) Random Glucose Calcium Magnesium Total Bilirubin AST ALT Alkaline Phosphatase Troponin I NT-Pro-B Natriuret Pep Total Protein Albumin Globulin Albumin/Globulin Ratio TSH 3rd Generation Arterial Blood Potassium Venous Blood Potassium 3.1 L Urine Color Urine Clarity Urine pH Ur Specific Watts Urine Protein Urine Glucose (UA) Urine Ketones Urine Blood Urine Nitrate Urine Bilirubin Urine Urobilinogen Ur Leukocyte Esterase Urine WBC (Auto) Urine RBC (Auto) Urine Bacteria 09/16/18 10:15 WBC RBC Hgb Hct MCV MCH MCHC RDW Plt Count MPV Neut % (Auto) Lymph % (Auto) [place] % (Auto) Eos % (Auto) Baso % (Auto) Neut # (Auto) Lymph # (Auto) [place] # (Auto) Eos # (Auto) Baso # (Auto) PT INR APTT Puncture Site Rra pCO2 25 L pO2 74 L HCO3 7.6 L* ABG pH 7.06 L* ABG Total CO2 7.9 L ABG O2 Saturation 95.9 ABG Base Excess -21.8 L Bebo Test Pos ABG Potassium 3.0 L VBG pH VBG pCO2 VBG HCO3 VBG Total CO2 VBG O2 Sat (Calc) VBG Base Excess VBG Potassium A-a O2 Difference 608.0 Respiratory Index 8.2 Glucose 76 Lactate 2.7 H Vent Mode Prvc Mechanical Rate 20 FiO2 100.0 Tidal Volume 450 PEEP 5 Crit Value Called To Crit Value Called By Tai bernardo,mint machine operator Crit Value Read Back Y Blood Gas Notified Time 1020 Sodium 141.0 Potassium Chloride 125.0 H Carbon Dioxide Anion Gap BUN Creatinine Est GFR ( Amer) Est GFR (Non-Af Amer) POC Glucose (mg/dL) Random Glucose Calcium Magnesium Total Bilirubin AST ALT Alkaline Phosphatase Troponin I NT-Pro-B Natriuret Pep Total Protein Albumin Globulin Albumin/Globulin Ratio TSH 3rd Generation Arterial Blood Potassium 3.0 L Venous Blood Potassium Urine Color Urine Clarity Urine pH Ur Specific Watts Urine Protein Urine Glucose (UA) Urine Ketones Urine Blood Urine Nitrate Urine Bilirubin Urine Urobilinogen Ur Leukocyte Esterase Urine WBC (Auto) Urine RBC (Auto) Urine Bacteria Assessment & Plan - Assessment and Plan (Free Text) Assessment: 87 y/o female with PMHx of asthma, osteoporosis and osteoarthritis presents to the ED unconscious via EMS. Patient intubated and ACLS protocol completed. Patient stabilized and sent to ICU for further medical management. Neuro -patient unconscious on presentation -intubated but not sedated, not alert or awake -CT head pending -Consider CTA CV -s/p cardiac arrest with ACLS protocol: bradycardia, epi x 2, Calcium gluconate, epi. R femoral TLC inserted in ED. -EKG: sinus tachycardia -pending serial trops - first positive. BNP 2640. Family denies cardiac hx. -cardio consult on board Dr. Ray, follow recs -ECHO pending GI -NPO -no acute issues Pulm -vent settings: PRVC rate 20, FiO2 100%, TV 450, PEEP 5 -ABG in ED: pH 7.06, pO2 74, pCO2 25, HCO3 7.6, O2 sat 95.9, metabolic acidosis -history of asthma: hold home meds -daily serial ABG and CXR when intubated Renal -Patient with pos nitrates and WBC in urine, pending urine cx -Renal injury evidenced on BUN/Cr on admission 27/2.3 -trend CMP daily Heme -consider heparin drip if CT head negative for hemmorhage -normocytic anemia on admission 9.7/28.7, but not on past records in 2013 -trend CBC daily ID -leukocytosis on admission 14.3 and evidence of UTI -pending urine cx and blood cx -consider abx if patient becomes febrile and/or positive cultures, hold abx for now DVT ppx: pending CT head, possible heparin GI ppx: protonix 40 mg IV case discussed w/ Dr. Reich, ICU attending and Dr. Jc Bernardo, hospitalist Saige Hunt PGY1 <Chun Bernardo - Last Filed: 09/18/18 02:58> Results - Vital Signs Recent Vital Signs: Last Vital Signs Temp 91.3 F L 09/18/18 01:30 Pulse 83 09/18/18 01:30 Resp 24 09/18/18 01:30 BP 91/49 L 09/18/18 01:30 Pulse Ox 88 L 09/18/18 01:00 - Labs Result Diagrams: 09/18/18 00:37 09/18/18 00:37 Labs: Laboratory Results - last 24 hr 09/17/18 09/17/18 09/17/18 03:21 04:18 05:27 WBC RBC Hgb Hct MCV MCH MCHC RDW Plt Count MPV Neut % (Auto) Lymph % (Auto) [place] % (Auto) Eos % (Auto) Baso % (Auto) Neut # (Auto) Lymph # (Auto) [place] # (Auto) Eos # (Auto) Baso # (Auto) Neutrophils % (Manual) Band Neutrophils % Lymphocytes % (Manual) Monocytes % (Manual) Toxic Granulation Platelet Estimate Large Platelets Polychromasia Poikilocytosis (manual Anisocytosis (manual) Bravo Cells Acanthocytes (Spur) Schistocytes PT INR APTT Puncture Site Rr pCO2 48 H pO2 149 H HCO3 16.0 L ABG pH 7.16 L* ABG Total CO2 18.6 L ABG O2 Saturation 98.6 H ABG Base Excess -11.5 L Bebo Test Pos ABG Potassium 4.1 A-a O2 Difference 504.0 Respiratory Index 3.4 Sodium 126.0 L Chloride 94.0 L Glucose 239 H Lactate 7.7 H* Vent Mode Prvc Mechanical Rate 20 FiO2 100.0 Tidal Volume 450 PEEP 5 Crit Value Called To Halina rn Crit Value Called By Juan Francisco mint machine operator Crit Value Read Back Y Blood Gas Notified Time 545 Potassium Carbon Dioxide Anion Gap BUN Creatinine Est GFR ( Amer) Est GFR (Non-Af Amer) POC Glucose (mg/dL) 337 H 290 H Random Glucose Lactic Acid Calcium Phosphorus Magnesium Total Bilirubin AST ALT Alkaline Phosphatase Troponin I Total Protein Albumin Globulin Albumin/Globulin Ratio Arterial Blood Potassium 4.1 Random Vancomycin Urine Opiates Screen Urine Methadone Screen Ur Barbiturates Screen Ur Phencyclidine Scrn Ur Amphetamines Screen U Benzodiazepines Scrn U Oth Cocaine Metabols U Cannabinoids Screen Influenza Typ A,B (EIA) Ur L.pneumophila Ag 09/17/18 09/17/18 09/17/18 05:35 05:47 05:47 WBC 18.1 H RBC 4.06 Hgb 12.2 Hct 36.9 MCV 90.8 MCH 29.9 MCHC 33.0 RDW 13.0 Plt Count 169 MPV 7.7 Neut % (Auto) 94.3 H Lymph % (Auto) 2.0 L [place] % (Auto) 3.4 Eos % (Auto) 0.1 Baso % (Auto) 0.2 Neut # (Auto) 17.0 H Lymph # (Auto) 0.4 L [place] # (Auto) 0.6 Eos # (Auto) 0.0 Baso # (Auto) 0.0 Neutrophils % (Manual) 74 Band Neutrophils % 19 H* Lymphocytes % (Manual) 2 L Monocytes % (Manual) 5 Toxic Granulation Platelet Estimate Normal Large Platelets Polychromasia Poikilocytosis (manual Anisocytosis (manual) Bravo Cells Acanthocytes (Spur) Schistocytes PT INR APTT Puncture Site pCO2 pO2 HCO3 ABG pH ABG Total CO2 ABG O2 Saturation ABG Base Excess Bebo Test ABG Potassium A-a O2 Difference Respiratory Index Sodium 127 L Chloride 93 L Glucose Lactate Vent Mode Mechanical Rate FiO2 Tidal Volume PEEP Crit Value Called To Crit Value Called By Crit Value Read Back Blood Gas Notified Time Potassium 4.4 Carbon Dioxide 18 L Anion Gap 20 BUN 35 H Creatinine 2.1 H Est GFR ( Amer) 27 Est GFR (Non-Af Amer) 22 POC Glucose (mg/dL) 275 H Random Glucose 228 H D Lactic Acid Calcium 7.3 L Phosphorus 5.4 H Magnesium 1.8 Total Bilirubin 0.7 AST 428 H D ALT 384 H D Alkaline Phosphatase 126 D Troponin I 1.8400 H* Total Protein 5.1 L Albumin 2.8 L Globulin 2.3 Albumin/Globulin Ratio 1.2 Arterial Blood Potassium Random Vancomycin Urine Opiates Screen Urine Methadone Screen Ur Barbiturates Screen Ur Phencyclidine Scrn Ur Amphetamines Screen U Benzodiazepines Scrn U Oth Cocaine Metabols U Cannabinoids Screen Influenza Typ A,B (EIA) Ur L.pneumophila Ag 09/17/18 09/17/18 09/17/18 05:47 06:14 07:06 WBC RBC Hgb Hct MCV MCH MCHC RDW Plt Count MPV Neut % (Auto) Lymph % (Auto) [place] % (Auto) Eos % (Auto) Baso % (Auto) Neut # (Auto) Lymph # (Auto) [place] # (Auto) Eos # (Auto) Baso # (Auto) Neutrophils % (Manual) Band Neutrophils % Lymphocytes % (Manual) Monocytes % (Manual) Toxic Granulation Platelet Estimate Large Platelets Polychromasia Poikilocytosis (manual Anisocytosis (manual) Bravo Cells Acanthocytes (Spur) Schistocytes PT INR APTT Puncture Site pCO2 pO2 HCO3 ABG pH ABG Total CO2 ABG O2 Saturation ABG Base Excess Bebo Test ABG Potassium A-a O2 Difference Respiratory Index Sodium Chloride Glucose Lactate Vent Mode Mechanical Rate FiO2 Tidal Volume PEEP Crit Value Called To Crit Value Called By Crit Value Read Back Blood Gas Notified Time Potassium Carbon Dioxide Anion Gap BUN Creatinine Est GFR ( Amer) Est GFR (Non-Af Amer) POC Glucose (mg/dL) 328 H 274 H Random Glucose Lactic Acid 7.6 H* Calcium Phosphorus Magnesium Total Bilirubin AST ALT Alkaline Phosphatase Troponin I Total Protein Albumin Globulin Albumin/Globulin Ratio Arterial Blood Potassium Random Vancomycin Urine Opiates Screen Urine Methadone Screen Ur Barbiturates Screen Ur Phencyclidine Scrn Ur Amphetamines Screen U Benzodiazepines Scrn U Oth Cocaine Metabols U Cannabinoids Screen Influenza Typ A,B (EIA) Ur L.pneumophila Ag 09/17/18 09/17/18 09/17/18 07:21 08:11 09:02 WBC RBC Hgb Hct MCV MCH MCHC RDW Plt Count MPV Neut % (Auto) Lymph % (Auto) [place] % (Auto) Eos % (Auto) Baso % (Auto) Neut # (Auto) Lymph # (Auto) [place] # (Auto) Eos # (Auto) Baso # (Auto) Neutrophils % (Manual) Band Neutrophils % Lymphocytes % (Manual) Monocytes % (Manual) Toxic Granulation Platelet Estimate Large Platelets Polychromasia Poikilocytosis (manual Anisocytosis (manual) Bravo Cells Acanthocytes (Spur) Schistocytes PT INR APTT Puncture Site pCO2 pO2 HCO3 ABG pH ABG Total CO2 ABG O2 Saturation ABG Base Excess Bebo Test ABG Potassium A-a O2 Difference Respiratory Index Sodium Chloride Glucose Lactate Vent Mode Mechanical Rate FiO2 Tidal Volume PEEP Crit Value Called To Crit Value Called By Crit Value Read Back Blood Gas Notified Time Potassium Carbon Dioxide Anion Gap BUN Creatinine Est GFR ( Amer) Est GFR (Non-Af Amer) POC Glucose (mg/dL) 252 H 220 H 210 H Random Glucose Lactic Acid Calcium Phosphorus Magnesium Total Bilirubin AST ALT Alkaline Phosphatase Troponin I Total Protein Albumin Globulin Albumin/Globulin Ratio Arterial Blood Potassium Random Vancomycin Urine Opiates Screen Urine Methadone Screen Ur Barbiturates Screen Ur Phencyclidine Scrn Ur Amphetamines Screen U Benzodiazepines Scrn U Oth Cocaine Metabols U Cannabinoids Screen Influenza Typ A,B (EIA) Ur L.pneumophila Ag 09/17/18 09/17/18 09/17/18 10:06 10:33 11:02 WBC RBC Hgb Hct MCV MCH MCHC RDW Plt Count MPV Neut % (Auto) Lymph % (Auto) [place] % (Auto) Eos % (Auto) Baso % (Auto) Neut # (Auto) Lymph # (Auto) [place] # (Auto) Eos # (Auto) Baso # (Auto) Neutrophils % (Manual) Band Neutrophils % Lymphocytes % (Manual) Monocytes % (Manual) Toxic Granulation Platelet Estimate Large Platelets Polychromasia Poikilocytosis (manual Anisocytosis (manual) Wheatcroft Cells Acanthocytes (Spur) Schistocytes PT INR APTT Puncture Site pCO2 pO2 HCO3 ABG pH ABG Total CO2 ABG O2 Saturation ABG Base Excess Bebo Test ABG Potassium A-a O2 Difference Respiratory Index Sodium Chloride Glucose Lactate Vent Mode Mechanical Rate FiO2 Tidal Volume PEEP Crit Value Called To Crit Value Called By Crit Value Read Back Blood Gas Notified Time Potassium Carbon Dioxide Anion Gap BUN Creatinine Est GFR ( Amer) Est GFR (Non-Af Amer) POC Glucose (mg/dL) 168 H 188 H Random Glucose Lactic Acid Calcium Phosphorus Magnesium Total Bilirubin AST ALT Alkaline Phosphatase Troponin I Total Protein Albumin Globulin Albumin/Globulin Ratio Arterial Blood Potassium Random Vancomycin Urine Opiates Screen Negative Urine Methadone Screen Negative Ur Barbiturates Screen Negative Ur Phencyclidine Scrn Negative Ur Amphetamines Screen Negative U Benzodiazepines Scrn Negative U Oth Cocaine Metabols Negative U Cannabinoids Screen Negative Influenza Typ A,B (EIA) Ur L.pneumophila Ag 09/17/18 09/17/18 09/17/18 12:07 12:12 12:12 WBC RBC Hgb Hct MCV MCH MCHC RDW Plt Count MPV Neut % (Auto) Lymph % (Auto) [place] % (Auto) Eos % (Auto) Baso % (Auto) Neut # (Auto) Lymph # (Auto) [place] # (Auto) Eos # (Auto) Baso # (Auto) Neutrophils % (Manual) Band Neutrophils % Lymphocytes % (Manual) Monocytes % (Manual) Toxic Granulation Platelet Estimate Large Platelets Polychromasia Poikilocytosis (manual Anisocytosis (manual) Wheatcroft Cells Acanthocytes (Spur) Schistocytes PT INR APTT Puncture Site pCO2 pO2 HCO3 ABG pH ABG Total CO2 ABG O2 Saturation ABG Base Excess Bebo Test ABG Potassium A-a O2 Difference Respiratory Index Sodium Chloride Glucose Lactate Vent Mode Mechanical Rate FiO2 Tidal Volume PEEP Crit Value Called To Crit Value Called By Crit Value Read Back Blood Gas Notified Time Potassium Carbon Dioxide Anion Gap BUN Creatinine Est GFR ( Amer) Est GFR (Non-Af Amer) POC Glucose (mg/dL) 127 H Random Glucose Lactic Acid 6.4 H* Calcium Phosphorus Magnesium Total Bilirubin AST ALT Alkaline Phosphatase Troponin I Total Protein Albumin Globulin Albumin/Globulin Ratio Arterial Blood Potassium Random Vancomycin Urine Opiates Screen Urine Methadone Screen Ur Barbiturates Screen Ur Phencyclidine Scrn Ur Amphetamines Screen U Benzodiazepines Scrn U Oth Cocaine Metabols U Cannabinoids Screen Influenza Typ A,B (EIA) Negative for flu a/b Ur L.pneumophila Ag 09/17/18 09/17/18 09/17/18 12:12 12:12 12:12 WBC 16.1 H RBC 3.68 L Hgb 11.1 Hct 33.0 L MCV 89.7 MCH 30.2 MCHC 33.7 RDW 12.8 Plt Count 155 MPV 7.7 Neut % (Auto) 92.7 H Lymph % (Auto) 3.0 L [place] % (Auto) 3.8 Eos % (Auto) 0.0 Baso % (Auto) 0.5 Neut # (Auto) 14.9 H Lymph # (Auto) 0.5 L [place] # (Auto) 0.6 Eos # (Auto) 0.0 Baso # (Auto) 0.1 Neutrophils % (Manual) 63 Band Neutrophils % 30 H* Lymphocytes % (Manual) 4 L Monocytes % (Manual) 3 Toxic Granulation Present Platelet Estimate Normal Large Platelets Present Polychromasia Slight Poikilocytosis (manual Slight Anisocytosis (manual) Slight Wheatcroft Cells Moderate Acanthocytes (Spur) Schistocytes PT 18.2 H INR 1.7 APTT 32 D Puncture Site pCO2 pO2 HCO3 ABG pH ABG Total CO2 ABG O2 Saturation ABG Base Excess Bebo Test ABG Potassium A-a O2 Difference Respiratory Index Sodium Chloride Glucose Lactate Vent Mode Mechanical Rate FiO2 Tidal Volume PEEP Crit Value Called To Crit Value Called By Crit Value Read Back Blood Gas Notified Time Potassium Carbon Dioxide Anion Gap BUN Creatinine Est GFR ( Amer) Est GFR (Non-Af Amer) POC Glucose (mg/dL) Random Glucose Lactic Acid Calcium Phosphorus Magnesium Total Bilirubin AST ALT Alkaline Phosphatase Troponin I Total Protein Albumin Globulin Albumin/Globulin Ratio Arterial Blood Potassium Random Vancomycin < 5.0 Urine Opiates Screen Urine Methadone Screen Ur Barbiturates Screen Ur Phencyclidine Scrn Ur Amphetamines Screen U Benzodiazepines Scrn U Oth Cocaine Metabols U Cannabinoids Screen Influenza Typ A,B (EIA) Ur L.pneumophila Ag 09/17/18 09/17/18 09/17/18 12:12 13:06 14:23 WBC RBC Hgb Hct MCV MCH MCHC RDW Plt Count MPV Neut % (Auto) Lymph % (Auto) [place] % (Auto) Eos % (Auto) Baso % (Auto) Neut # (Auto) Lymph # (Auto) [place] # (Auto) Eos # (Auto) Baso # (Auto) Neutrophils % (Manual) Band Neutrophils % Lymphocytes % (Manual) Monocytes % (Manual) Toxic Granulation Platelet Estimate Large Platelets Polychromasia Poikilocytosis (manual Anisocytosis (manual) Wheatcroft Cells Acanthocytes (Spur) Schistocytes PT INR APTT Puncture Site pCO2 pO2 HCO3 ABG pH ABG Total CO2 ABG O2 Saturation ABG Base Excess Bebo Test ABG Potassium A-a O2 Difference Respiratory Index Sodium 128 L Chloride 93 L Glucose Lactate Vent Mode Mechanical Rate FiO2 Tidal Volume PEEP Crit Value Called To Crit Value Called By Crit Value Read Back Blood Gas Notified Time Potassium 4.4 Carbon Dioxide 21 L Anion Gap 18 BUN 37 H Creatinine 2.2 H Est GFR ( Amer) 26 Est GFR (Non-Af Amer) 21 POC Glucose (mg/dL) 129 H 112 H Random Glucose 113 H D Lactic Acid Calcium 8.0 L Phosphorus 5.5 H Magnesium 2.3 Total Bilirubin 0.6 AST 293 H D ALT 316 H Alkaline Phosphatase 117 Troponin I 1.2700 H* Total Protein 4.9 L Albumin 2.6 L Globulin 2.3 Albumin/Globulin Ratio 1.1 Arterial Blood Potassium Random Vancomycin Urine Opiates Screen Urine Methadone Screen Ur Barbiturates Screen Ur Phencyclidine Scrn Ur Amphetamines Screen U Benzodiazepines Scrn U Oth Cocaine Metabols U Cannabinoids Screen Influenza Typ A,B (EIA) Ur L.pneumophila Ag 01/10/0509/17/18 09/17/18 15:05 16:10 17:02 WBC RBC Hgb Hct MCV MCH MCHC RDW Plt Count MPV Neut % (Auto) Lymph % (Auto) [place] % (Auto) Eos % (Auto) Baso % (Auto) Neut # (Auto) Lymph # (Auto) [place] # (Auto) Eos # (Auto) Baso # (Auto) Neutrophils % (Manual) Band Neutrophils % Lymphocytes % (Manual) Monocytes % (Manual) Toxic Granulation Platelet Estimate Large Platelets Polychromasia Poikilocytosis (manual Anisocytosis (manual) Bravo Cells Acanthocytes (Spur) Schistocytes PT INR APTT Puncture Site pCO2 pO2 HCO3 ABG pH ABG Total CO2 ABG O2 Saturation ABG Base Excess Bebo Test ABG Potassium A-a O2 Difference Respiratory Index Sodium Chloride Glucose Lactate Vent Mode Mechanical Rate FiO2 Tidal Volume PEEP Crit Value Called To Crit Value Called By Crit Value Read Back Blood Gas Notified Time Potassium Carbon Dioxide Anion Gap BUN Creatinine Est GFR ( Amer) Est GFR (Non-Af Amer) POC Glucose (mg/dL) 106 87 85 Random Glucose Lactic Acid Calcium Phosphorus Magnesium Total Bilirubin AST ALT Alkaline Phosphatase Troponin I Total Protein Albumin Globulin Albumin/Globulin Ratio Arterial Blood Potassium Random Vancomycin Urine Opiates Screen Urine Methadone Screen Ur Barbiturates Screen Ur Phencyclidine Scrn Ur Amphetamines Screen U Benzodiazepines Scrn U Oth Cocaine Metabols U Cannabinoids Screen Influenza Typ A,B (EIA) Ur L.pneumophila Ag 09/17/18 09/17/18 09/17/18 18:25 18:37 18:37 WBC RBC Hgb Hct MCV MCH MCHC RDW Plt Count MPV Neut % (Auto) Lymph % (Auto) [place] % (Auto) Eos % (Auto) Baso % (Auto) Neut # (Auto) Lymph # (Auto) [place] # (Auto) Eos # (Auto) Baso # (Auto) Neutrophils % (Manual) Band Neutrophils % Lymphocytes % (Manual) Monocytes % (Manual) Toxic Granulation Platelet Estimate Large Platelets Polychromasia Poikilocytosis (manual Anisocytosis (manual) Wheatcroft Cells Acanthocytes (Spur) Schistocytes PT INR APTT Puncture Site pCO2 pO2 HCO3 ABG pH ABG Total CO2 ABG O2 Saturation ABG Base Excess Bebo Test ABG Potassium A-a O2 Difference Respiratory Index Sodium Chloride Glucose Lactate Vent Mode Mechanical Rate FiO2 Tidal Volume PEEP Crit Value Called To Crit Value Called By Crit Value Read Back Blood Gas Notified Time Potassium Carbon Dioxide Anion Gap BUN Creatinine Est GFR ( Amer) Est GFR (Non-Af Amer) POC Glucose (mg/dL) 82 Random Glucose Lactic Acid 7.5 H* Calcium Phosphorus Magnesium Total Bilirubin AST ALT Alkaline Phosphatase Troponin I Total Protein Albumin Globulin Albumin/Globulin Ratio Arterial Blood Potassium Random Vancomycin Urine Opiates Screen Urine Methadone Screen Ur Barbiturates Screen Ur Phencyclidine Scrn Ur Amphetamines Screen U Benzodiazepines Scrn U Oth Cocaine Metabols U Cannabinoids Screen Influenza Typ A,B (EIA) Ur L.pneumophila Ag Negative 09/17/18 09/17/18 09/17/18 18:37 18:37 18:37 WBC 18.4 H RBC 3.81 Hgb 11.2 Hct 34.2 MCV 89.9 MCH 29.3 MCHC 32.6 L RDW 13.0 Plt Count 160 MPV 7.7 Neut % (Auto) 92.6 H Lymph % (Auto) 2.8 L [place] % (Auto) 4.2 Eos % (Auto) 0.3 Baso % (Auto) 0.1 Neut # (Auto) 17.1 H Lymph # (Auto) 0.5 L [place] # (Auto) 0.8 Eos # (Auto) 0.1 Baso # (Auto) 0.0 Neutrophils % (Manual) 51 Band Neutrophils % 34 H* Lymphocytes % (Manual) 5 L Monocytes % (Manual) 10 Toxic Granulation Platelet Estimate Normal Large Platelets Polychromasia Poikilocytosis (manual Anisocytosis (manual) Bravo Cells Moderate Acanthocytes (Spur) Schistocytes PT 20.3 H INR 1.9 APTT 34 Puncture Site pCO2 pO2 HCO3 ABG pH ABG Total CO2 ABG O2 Saturation ABG Base Excess Bebo Test ABG Potassium A-a O2 Difference Respiratory Index Sodium 128 L Chloride 94 L Glucose Lactate Vent Mode Mechanical Rate FiO2 Tidal Volume PEEP Crit Value Called To Crit Value Called By Crit Value Read Back Blood Gas Notified Time Potassium 5.0 Carbon Dioxide 17 L Anion Gap 22 H BUN 39 H Creatinine 2.2 H Est GFR ( Amer) 26 Est GFR (Non-Af Amer) 21 POC Glucose (mg/dL) Random Glucose 70 D Lactic Acid Calcium 7.3 L Phosphorus 6.8 H Magnesium 2.3 Total Bilirubin 0.8 AST 233 H D ALT 272 H Alkaline Phosphatase 117 Troponin I Total Protein 5.1 L Albumin 2.7 L Globulin 2.4 Albumin/Globulin Ratio 1.2 Arterial Blood Potassium Random Vancomycin Urine Opiates Screen Urine Methadone Screen Ur Barbiturates Screen Ur Phencyclidine Scrn Ur Amphetamines Screen U Benzodiazepines Scrn U Oth Cocaine Metabols U Cannabinoids Screen Influenza Typ A,B (EIA) Ur L.pneumophila Ag 09/17/18 09/17/18 09/17/18 19:05 20:13 21:05 WBC RBC Hgb Hct MCV MCH MCHC RDW Plt Count MPV Neut % (Auto) Lymph % (Auto) [place] % (Auto) Eos % (Auto) Baso % (Auto) Neut # (Auto) Lymph # (Auto) [place] # (Auto) Eos # (Auto) Baso # (Auto) Neutrophils % (Manual) Band Neutrophils % Lymphocytes % (Manual) Monocytes % (Manual) Toxic Granulation Platelet Estimate Large Platelets Polychromasia Poikilocytosis (manual Anisocytosis (manual) Wheat[place] Cells Acanthocytes (Spur) Schistocytes PT INR APTT Puncture Site pCO2 pO2 HCO3 ABG pH ABG Total CO2 ABG O2 Saturation ABG Base Excess Bebo Test ABG Potassium A-a O2 Difference Respiratory Index Sodium Chloride Glucose Lactate Vent Mode Mechanical Rate FiO2 Tidal Volume PEEP Crit Value Called To Crit Value Called By Crit Value Read Back Blood Gas Notified Time Potassium Carbon Dioxide Anion Gap BUN Creatinine Est GFR ( Amer) Est GFR (Non-Af Amer) POC Glucose (mg/dL) 80 74 54 L Random Glucose Lactic Acid Calcium Phosphorus Magnesium Total Bilirubin AST ALT Alkaline Phosphatase Troponin I Total Protein Albumin Globulin Albumin/Globulin Ratio Arterial Blood Potassium Random Vancomycin Urine Opiates Screen Urine Methadone Screen Ur Barbiturates Screen Ur Phencyclidine Scrn Ur Amphetamines Screen U Benzodiazepines Scrn U Oth Cocaine Metabols U Cannabinoids Screen Influenza Typ A,B (EIA) Ur L.pneumophila Ag 09/17/18 09/17/18 09/17/18 21:08 22:05 23:45 WBC RBC Hgb Hct MCV MCH MCHC RDW Plt Count MPV Neut % (Auto) Lymph % (Auto) [place] % (Auto) Eos % (Auto) Baso % (Auto) Neut # (Auto) Lymph # (Auto) [place] # (Auto) Eos # (Auto) Baso # (Auto) Neutrophils % (Manual) Band Neutrophils % Lymphocytes % (Manual) Monocytes % (Manual) Toxic Granulation Platelet Estimate Large Platelets Polychromasia Poikilocytosis (manual Anisocytosis (manual) Wheatcroft Cells Acanthocytes (Spur) Schistocytes PT INR APTT Puncture Site pCO2 pO2 HCO3 ABG pH ABG Total CO2 ABG O2 Saturation ABG Base Excess Bebo Test ABG Potassium A-a O2 Difference Respiratory Index Sodium Chloride Glucose Lactate Vent Mode Mechanical Rate FiO2 Tidal Volume PEEP Crit Value Called To Crit Value Called By Crit Value Read Back Blood Gas Notified Time Potassium Carbon Dioxide Anion Gap BUN Creatinine Est GFR ( Amer) Est GFR (Non-Af Amer) POC Glucose (mg/dL) 61 L 175 H 122 H Random Glucose Lactic Acid Calcium Phosphorus Magnesium Total Bilirubin AST ALT Alkaline Phosphatase Troponin I Total Protein Albumin Globulin Albumin/Globulin Ratio Arterial Blood Potassium Random Vancomycin Urine Opiates Screen Urine Methadone Screen Ur Barbiturates Screen Ur Phencyclidine Scrn Ur Amphetamines Screen U Benzodiazepines Scrn U Oth Cocaine Metabols U Cannabinoids Screen Influenza Typ A,B (EIA) Ur L.pneumophila Ag 09/18/18 09/18/18 09/18/18 00:24 00:37 00:37 WBC 16.7 H RBC 3.43 L Hgb 10.4 L Hct 32.2 L MCV 93.9 D MCH 30.3 MCHC 32.2 L RDW 13.4 Plt Count 143 MPV 8.5 Neut % (Auto) 90.2 H Lymph % (Auto) 4.9 L [place] % (Auto) 4.2 Eos % (Auto) 0.6 Baso % (Auto) 0.1 Neut # (Auto) 15.1 H Lymph # (Auto) 0.8 L [place] # (Auto) 0.7 Eos # (Auto) 0.1 Baso # (Auto) 0.0 Neutrophils % (Manual) 82 H Band Neutrophils % 9 H Lymphocytes % (Manual) 4 L Monocytes % (Manual) 5 Toxic Granulation Platelet Estimate Normal Large Platelets Polychromasia Poikilocytosis (manual Anisocytosis (manual) Bravo Cells Moderate Acanthocytes (Spur) Marked Schistocytes Slight PT 24.7 H INR 2.3 APTT 48 H D Puncture Site pCO2 pO2 HCO3 ABG pH ABG Total CO2 ABG O2 Saturation ABG Base Excess Bebo Test ABG Potassium A-a O2 Difference Respiratory Index Sodium Chloride Glucose Lactate Vent Mode Mechanical Rate FiO2 Tidal Volume PEEP Crit Value Called To Crit Value Called By Crit Value Read Back Blood Gas Notified Time Potassium Carbon Dioxide Anion Gap BUN Creatinine Est GFR ( Amer) Est GFR (Non-Af Amer) POC Glucose (mg/dL) 107 Random Glucose Lactic Acid Calcium Phosphorus Magnesium Total Bilirubin AST ALT Alkaline Phosphatase Troponin I Total Protein Albumin Globulin Albumin/Globulin Ratio Arterial Blood Potassium Random Vancomycin Urine Opiates Screen Urine Methadone Screen Ur Barbiturates Screen Ur Phencyclidine Scrn Ur Amphetamines Screen U Benzodiazepines Scrn U Oth Cocaine Metabols U Cannabinoids Screen Influenza Typ A,B (EIA) Ur L.pneumophila Ag 09/18/18 09/18/18 09/18/18 00:37 00:38 01:22 WBC RBC Hgb Hct MCV MCH MCHC RDW Plt Count MPV Neut % (Auto) Lymph % (Auto) [place] % (Auto) Eos % (Auto) Baso % (Auto) Neut # (Auto) Lymph # (Auto) [place] # (Auto) Eos # (Auto) Baso # (Auto) Neutrophils % (Manual) Band Neutrophils % Lymphocytes % (Manual) Monocytes % (Manual) Toxic Granulation Platelet Estimate Large Platelets Polychromasia Poikilocytosis (manual Anisocytosis (manual) Bravo Cells Acanthocytes (Spur) Schistocytes PT INR APTT Puncture Site pCO2 pO2 HCO3 ABG pH ABG Total CO2 ABG O2 Saturation ABG Base Excess Bebo Test ABG Potassium A-a O2 Difference Respiratory Index Sodium 129 L Chloride 96 L Glucose Lactate Vent Mode Mechanical Rate FiO2 Tidal Volume PEEP Crit Value Called To Crit Value Called By Crit Value Read Back Blood Gas Notified Time Potassium 5.4 H Carbon Dioxide 13 L Anion Gap 26 H BUN 36 H Creatinine 2.2 H Est GFR ( Amer) 26 Est GFR (Non-Af Amer) 21 POC Glucose (mg/dL) 77 Random Glucose 82 Lactic Acid 12.0 H* Calcium 7.3 L Phosphorus 8.5 H Magnesium 2.4 H Total Bilirubin 1.0 AST 242 H ALT 250 H Alkaline Phosphatase 106 Troponin I Total Protein 4.6 L Albumin 2.4 L Globulin 2.2 Albumin/Globulin Ratio 1.1 Arterial Blood Potassium Random Vancomycin Urine Opiates Screen Urine Methadone Screen Ur Barbiturates Screen Ur Phencyclidine Scrn Ur Amphetamines Screen U Benzodiazepines Scrn U Oth Cocaine Metabols U Cannabinoids Screen Influenza Typ A,B (EIA) Ur L.pneumophila Ag 09/18/18 02:19 WBC RBC Hgb Hct MCV MCH MCHC RDW Plt Count MPV Neut % (Auto) Lymph % (Auto) [place] % (Auto) Eos % (Auto) Baso % (Auto) Neut # (Auto) Lymph # (Auto) [place] # (Auto) Eos # (Auto) Baso # (Auto) Neutrophils % (Manual) Band Neutrophils % Lymphocytes % (Manual) Monocytes % (Manual) Toxic Granulation Platelet Estimate Large Platelets Polychromasia Poikilocytosis (manual Anisocytosis (manual) Bravo Cells Acanthocytes (Spur) Schistocytes PT INR APTT Puncture Site pCO2 pO2 HCO3 ABG pH ABG Total CO2 ABG O2 Saturation ABG Base Excess Bebo Test ABG Potassium A-a O2 Difference Respiratory Index Sodium Chloride Glucose Lactate Vent Mode Mechanical Rate FiO2 Tidal Volume PEEP Crit Value Called To Crit Value Called By Crit Value Read Back Blood Gas Notified Time Potassium Carbon Dioxide Anion Gap BUN Creatinine Est GFR ( Amer) Est GFR (Non-Af Amer) POC Glucose (mg/dL) 79 Random Glucose Lactic Acid Calcium Phosphorus Magnesium Total Bilirubin AST ALT Alkaline Phosphatase Troponin I Total Protein Albumin Globulin Albumin/Globulin Ratio Arterial Blood Potassium Random Vancomycin Urine Opiates Screen Urine Methadone Screen Ur Barbiturates Screen Ur Phencyclidine Scrn Ur Amphetamines Screen U Benzodiazepines Scrn U Oth Cocaine Metabols U Cannabinoids Screen Influenza Typ A,B (EIA) Ur L.pneumophila Ag Attending/Attestation - Attestation I have personally seen and examined this patient.: Yes I have fully participated in the care of the patient.: Yes I have reviewed all pertinent clinical information: Yes
--- NOTE | 2018-09-16 11:27 | CT ---
Date of service: 09/16/2018 PROCEDURE: CT HEAD WITHOUT CONTRAST. HISTORY: ams COMPARISON: None available. TECHNIQUE: Axial computed tomography images were obtained through the head/brain without intravenous contrast. Radiation dose: Total exam DLP = 1007.33 mGy-cm. This CT exam was performed using one or more of the following dose reduction techniques: Automated exposure control, adjustment of the mA and/or kV according to patient size, and/or use of iterative reconstruction technique. FINDINGS: HEMORRHAGE: No intracranial hemorrhage. BRAIN: No mass effect or edema. Atrophy and chronic periventricular white matter ischemic disease. VENTRICLES: Unremarkable. No hydrocephalus. CALVARIUM: Unremarkable. PARANASAL SINUSES: Unremarkable as visualized. No significant inflammatory changes. MASTOID AIR CELLS: Unremarkable as visualized. No inflammatory changes. OTHER FINDINGS: None. IMPRESSION: No acute hemorrhage.
--- NOTE | 2018-09-16 12:08 | PCM.SEPTIC ---
Sepsis Progress Note - Reassessment Type Date of Evaluation: 09/16/18 Time of Evaluation: 12:06 Reassessment Type: Invasive reassessment - Non Invasive Reassessment Were the most recent vital sign reviewed: Yes Vital Sign (Latest): Temp Pulse Resp BP Pulse Ox 99.8 F H 152 H 20 87/46 L 98 09/16/18 08:50 09/16/18 10:29 09/16/18 10:29 09/16/18 10:29 09/16/18 11:54 Cardiovascular: Yes: Tachycardia Respiratory: Yes: Wheezing Capillary Refill: Normal (Less than 2 sec) Pulses: Normal Dorsalis Pedis, Decreased Radial Skin: Normal Color, Warm, Dry - Invasive Reassessment (complete 2 of 4) Was a Central Venous Pressure Measurement obtained within 6 Hours after the presentation of septic shock: No Was a central venous oxygen measurement obtained within 6 hours after the presentation of septic shock: No Was a bedside cardiovascular ultrasound performed within 6 hours after the presentation of septic shock: No Was a passive leg raise performed or was a fluid challenge performed within 6 hrs of the initial fluid bolus: No Passive Leg Raise Result: Not Applicable (Pt s/p ACLS protocol. Intubated, chest compressions, epi x 2, calcium gluconate, epi. Stabilized and transferred to ICU) Fluid Challenge performed: No
[2018-09-16] MEDS ORDERED: Sodium Chloride 0.9% 250 ML IV ONE (12:15)
[2018-09-16] MEDS ORDERED: methylPREDNISolone 40 MG in Sodium Chloride 0.9% 100 ML IVPB SCH (12:30)
--- NOTE | 2018-09-16 12:59 | RAD ---
HISTORY: s/p cardiac arrest COMPARISON: Chest x-ray performed 09/16/18 at 919 hr TECHNIQUE: Chest, one view. FINDINGS: Endotracheal tube terminates approximately 2.3 cm above the simón, which is not well visualized. At least 2 external defibrillators. Numerous external wires and leads obscure evaluation of the underlying parenchyma. LUNGS: Patchy bilateral lower lobe infiltrates. Mild pulmonary venous congestion. Suspect tiny left pleural effusion. No definite pneumothorax. Please note that chest x-ray has limited sensitivity for the detection of pulmonary masses. CARDIOVASCULAR: Partially obscured heart border. Atherosclerotic calcifications of the aorta. OSSEOUS STRUCTURES: Osseous demineralization. Degenerative changes. VISUALIZED UPPER ABDOMEN: Hyperdensity noted within the right upper quadrant; correlate for possibility of oral contrast. OTHER FINDINGS: None. IMPRESSION: Patchy bilateral lower lobe infiltrates. Mild pulmonary venous congestion. Suspect tiny left pleural effusion. Endotracheal tube terminates approximately 2.3 cm above the simón, which is not well visualized. At least 2 external defibrillators. Hyperdensity noted within the right upper quadrant; correlate for possibility of oral contrast.
[2018-09-16] MEDS ORDERED: Heparin25000 units/250ml 1/2NS 25,000 UNITS/250 ML BAG IV PRN (13:00)
--- NOTE | 2018-09-16 13:12 | CP.PCM.PCO ---
Physician Communication Note - Physician Communication Note Physician Communication Note: see above
--- NOTE | 2018-09-16 13:23 | CP.PCM.CON ---
History of Present Illness - History of Present Illness History of Present Illness: Palliative consult requested by Doctor Law for goals of care discussion Patient is a 87 yo female admitted from home with AMS. per son who tried to wake up, patient was not responding. 911 called and patient brought to ED where she sustained acute respiratory distress and was intubated. CT head was negative acute bleeding. ECHO is being performed. Patient diagnosed with sepsis and Avelox IV and Solumedrol started. Blood work was significant for WBC 14.3, Hb 9.7, Na 128 and elevated Troponin. heparin drip on board. Per son, patient had complained of urge to urinate but could not, for about 5 days before this incident. Patient saw her PM complainig of weakness and poor appetite but no about symptoms. The MD diagnosed her with depression and ordered Zoloft. PMH: asthma, osteoporosis, OA Soc. Hx: single, lives at home with son Sony. hx: unknown Review of Systems - Review of Systems All systems: reviewed and no additional remarkable complaints except Review of Systems: ROS unobtainable from patient due to unresponsivness. ROS obtained from nursing. Per nursing, patient remained unresponsive. Past Patient History - Past Social History Smoking Status: Never Smoked - PULMONARY Hx Asthma: Yes Hx Emphysema: Yes - MUSCULOSKELETAL/RHEUMATOLOGICAL Hx Arthritis: Yes - PSYCHIATRIC Hx Depression: Yes Hx Substance Use: No - SURGICAL HISTORY Hx Appendectomy: Yes Hx Cholecystectomy: Yes - ANESTHESIA Hx Anesthesia: Yes Hx Anesthesia Reactions: No Meds Allergies/Adverse Reactions: Allergies Allergy/AdvReac Type Severity Reaction Status Date / Time Penicillins Allergy Verified 09/16/18 09:13 sulfa Allergy Uncoded 09/16/18 09:13 - Medications Medications: Current Medications Albuterol/Ipratropium (Duoneb 3 Mg/0.5 Mg (3 Ml) Ud) 3 ml INH RQ6 TAMIR Dopamine HCl/Dextrose (Dopamine 400mg/250ml D5w) 400 mg in 250 mls @ 13.125 mls/hr IV .Q19H3M PRN; Protocol PRN Reason: TITRATE PER MD ORDER Last Titration: 09/16/18 11:35 Dose: 7 mcg/kg/min, 18.375 mls/hr Norepinephrine Bitartrate 4 mg (/ Dextrose) 254 mls @ 38.1 mls/hr IV .Q6H40M PRN; Protocol PRN Reason: TITRATE PER MD ORDER Last Titration: 09/16/18 11:05 Dose: 20 mcg/min, 76.2 mls/hr Acetaminophen (Ofirmev) 100 mls @ 100 mls/hr IV DAILY PRN PRN Reason: Fever >100.4 F Stop: 09/17/18 11:24 Heparin Sodium/Sodium Chloride (Heparin 85999 Units/250ml 1/2 Normal Saline) 25,000 units in 250 mls @ 8.4 mls/hr IV .Q24H PRN; Protocol PRN Reason: ADJUST RATE PER PROTOCOL Last Admin: 09/16/18 13:11 Dose: 12 units/kg/hr, 8.4 mls/hr Moxifloxacin HCl (Avelox Iv 400mg/250ml Ns) 400 mg in 250 mls @ 167 mls/hr IVPB Q24H TAMIR; Protocol Last Admin: 09/16/18 13:13 Dose: 167 mls/hr Methylprednisolone (Solu-Medrol) 40 mg IVP Q12H TAMIR Physical Exam - Constitutional Appears: In Acute Distress - Head Exam Head Exam: ATRAUMATIC, NORMAL INSPECTION, NORMOCEPHALIC - Eye Exam Pupil Exam: Fixed, Irregular - ENT Exam Additional comments: ETT - Neck Exam Neck exam: Positive for: Normal Inspection - Respiratory Exam Additional comments: On MV support - Cardiovascular Exam Cardiovascular Exam: Tachycardia - GI/Abdominal Exam GI & Abdominal Exam: Distended, Firm, Hypoactive Bowel Sounds - Rectal Exam Rectal Exam: Deferred - Extremities Exam Extremities exam: Positive for: normal inspection - Back Exam Back exam: NORMAL INSPECTION - Neurological Exam Neurological exam: Motor Sensory Deficit - Psychiatric Exam Psychiatric exam: Flat Affect - Skin Skin Exam: Dry, Intact, Normal Color, Warm Results - Vital Signs Recent Vital Signs: Last Vital Signs Temp 99.8 F H 09/16/18 08:50 Pulse 152 H 09/16/18 10:29 Resp 20 09/16/18 10:29 BP 87/46 L 09/16/18 10:29 Pulse Ox 98 09/16/18 12:56 - Labs Result Diagrams: 09/16/18 10:05 09/16/18 09:13 Labs: Laboratory Results - last 24 hr 09/16/18 09/16/18 09/16/18 08:53 09:13 09:18 WBC RBC Hgb Hct MCV MCH MCHC RDW Plt Count MPV Neut % (Auto) Lymph % (Auto) [place] % (Auto) Eos % (Auto) Baso % (Auto) Neut # (Auto) Lymph # (Auto) [place] # (Auto) Eos # (Auto) Baso # (Auto) PT INR APTT Puncture Site pCO2 pO2 HCO3 ABG pH ABG Total CO2 ABG O2 Saturation ABG Base Excess Bebo Test ABG Potassium VBG pH VBG pCO2 VBG HCO3 VBG Total CO2 VBG O2 Sat (Calc) VBG Base Excess VBG Potassium A-a O2 Difference Respiratory Index Glucose Lactate Vent Mode Mechanical Rate FiO2 Tidal Volume PEEP Crit Value Called To Crit Value Called By Crit Value Read Back Blood Gas Notified Time Sodium 128 L Potassium 3.7 Chloride 91 L Carbon Dioxide 23 Anion Gap 17 BUN 27 H Creatinine 2.3 H Est GFR ( Amer) 24 Est GFR (Non-Af Amer) 20 POC Glucose (mg/dL) 224 H Random Glucose 202 H D Calcium 8.1 L Magnesium 2.5 H Total Bilirubin 1.0 AST 39 H ALT 30 Alkaline Phosphatase 93 Total Creatine Kinase Troponin I 0.1810 H* NT-Pro-B Natriuret Pep 2640 H Total Protein 6.6 Albumin 3.9 Globulin 2.7 Albumin/Globulin Ratio 1.4 TSH 3rd Generation 0.30 L Arterial Blood Potassium Venous Blood Potassium Urine Color [place] Urine Clarity Clear Urine pH 6.0 Ur Specific [place] 1.010 Urine Protein Negative Urine Glucose (UA) Normal Urine Ketones Negative Urine Blood 1+ H Urine Nitrate Positive H Urine Bilirubin Negative Urine Urobilinogen 4.0 H Ur Leukocyte Esterase Neg Urine WBC (Auto) 6 H Urine RBC (Auto) 11 H Urine Bacteria Rare 09/16/18 09/16/18 09/16/18 09:36 10:05 10:05 WBC 14.3 H D RBC 3.15 L Hgb 9.7 L Hct 28.7 L MCV 91.0 D MCH 30.6 MCHC 33.6 RDW 12.9 Plt Count 212 D MPV 7.6 Neut % (Auto) 77.9 H Lymph % (Auto) 17.8 L [place] % (Auto) 3.8 Eos % (Auto) 0.1 Baso % (Auto) 0.4 Neut # (Auto) 11.1 H Lymph # (Auto) 2.6 [place] # (Auto) 0.5 Eos # (Auto) 0.0 Baso # (Auto) 0.1 PT 17.6 H INR 1.6 APTT 49 H Puncture Site pCO2 pO2 25 L HCO3 ABG pH ABG Total CO2 ABG O2 Saturation ABG Base Excess Bebo Test ABG Potassium VBG pH 6.91 L* VBG pCO2 97 H* VBG HCO3 10.9 VBG Total CO2 22.4 VBG O2 Sat (Calc) 28.0 L VBG Base Excess -15.1 L VBG Potassium 3.1 L A-a O2 Difference Respiratory Index Glucose 228 H Lactate 5.4 H* Vent Mode Mechanical Rate FiO2 Tidal Volume PEEP Crit Value Called To Crit Value Called By Abraham bernardo,systematic theology professor Crit Value Read Back Y Blood Gas Notified Time 945 Sodium 130.0 L Potassium Chloride 97.0 L Carbon Dioxide Anion Gap BUN Creatinine Est GFR ( Amer) Est GFR (Non-Af Amer) POC Glucose (mg/dL) Random Glucose Calcium Magnesium Total Bilirubin AST ALT Alkaline Phosphatase Total Creatine Kinase Troponin I NT-Pro-B Natriuret Pep Total Protein Albumin Globulin Albumin/Globulin Ratio TSH 3rd Generation Arterial Blood Potassium Venous Blood Potassium 3.1 L Urine Color Urine Clarity Urine pH Ur Specific [place] Urine Protein Urine Glucose (UA) Urine Ketones Urine Blood Urine Nitrate Urine Bilirubin Urine Urobilinogen Ur Leukocyte Esterase Urine WBC (Auto) Urine RBC (Auto) Urine Bacteria 09/16/18 09/16/18 10:15 12:57 WBC RBC Hgb Hct MCV MCH MCHC RDW Plt Count MPV Neut % (Auto) Lymph % (Auto) [place] % (Auto) Eos % (Auto) Baso % (Auto) Neut # (Auto) Lymph # (Auto) [place] # (Auto) Eos # (Auto) Baso # (Auto) PT INR APTT Puncture Site Rra pCO2 25 L pO2 74 L HCO3 7.6 L* ABG pH 7.06 L* ABG Total CO2 7.9 L ABG O2 Saturation 95.9 ABG Base Excess -21.8 L Bebo Test Pos ABG Potassium 3.0 L VBG pH VBG pCO2 VBG HCO3 VBG Total CO2 VBG O2 Sat (Calc) VBG Base Excess VBG Potassium A-a O2 Difference 608.0 Respiratory Index 8.2 Glucose 76 Lactate 2.7 H Vent Mode Prvc Mechanical Rate 20 FiO2 100.0 Tidal Volume 450 PEEP 5 Crit Value Called To Crit Value Called By Tai bernardo,systematic theology professor Crit Value Read Back Y Blood Gas Notified Time 1020 Sodium 141.0 Potassium Chloride 125.0 H Carbon Dioxide Anion Gap BUN Creatinine Est GFR ( Amer) Est GFR (Non-Af Amer) POC Glucose (mg/dL) Random Glucose Calcium Magnesium Total Bilirubin AST ALT Alkaline Phosphatase Total Creatine Kinase 81 Troponin I NT-Pro-B Natriuret Pep Total Protein Albumin Globulin Albumin/Globulin Ratio TSH 3rd Generation Arterial Blood Potassium 3.0 L Venous Blood Potassium Urine Color Urine Clarity Urine pH Ur Specific [place] Urine Protein Urine Glucose (UA) Urine Ketones Urine Blood Urine Nitrate Urine Bilirubin Urine Urobilinogen Ur Leukocyte Esterase Urine WBC (Auto) Urine RBC (Auto) Urine Bacteria Assessment & Plan - Assessment and Plan (Free Text) Assessment: Palliative consult Full Code, there is no Advance Directive on chart, PPS 10% I reviewed Medical records, all diagnostic studies and discussed goals of care with family. Patient is intubated, no sedated, unresponsive to external stimuli. FiO2 100%, O2Sat 94%. BP 87/46, HR 153. Patient on 2 pressors. Abdomen distended, firm, hypoactive bowel sounds. Extremities exam, normal. Family requested family meeting . Goals of care discussed with family and Doctor Law present. Sons, daughters and grandchildren were present. The granddaughter Elidia was a spoke person for family. I reviewed patient's current clinical presentation and elicited family's expectations and understanding of care. They all admitted being in shock and afraid of possible . With help from Doctor Law, family was explained that sepsis from UTI was most likely cause of this distress, but more diagnostic studies were to fallow. I shared my concern that despite all aggressive life support measures in place, patient could go into cardiac distress due to complex clinical condition, and questioned CPR status. I made sure family understood CPR and possible consequences or poor results. Family acknowledged it and asked for FULL CODE, meaning they wanted all available aggressive measures to be applied to support life. We reassured family of all appropriate actions taken and agreed to meet again in 1-2 days. Impression * Acute respiratory distress * Sepsis * CO * AMS * Anticipatory anxiety * Goals of care discussion Suggestions * Continue life support * Would consider Neuro consult and EEG if patien's condition remains unchanged. That would give more information about prognosis and help family with decision making * Keep family updated with patient's progress * FULL CODE Palliative care will continue to fallow up with family and offer support. Goals of care discussion 46 min
[2018-09-16] MEDS: MethylPREDNISolone 40 mg Vial IVP SCH (13:30)
[2018-09-16 13:32] LABS: CK-MB 5.17 ng/mL (0.0-3.38)
[2018-09-16 13:36] LABS: TROPONIN I 2.57 ng/mL (0.00-0.120)
[2018-09-16] MEDS: Albuterol-Ipratrop 3 mg / 0.5 (3 ml) UD INH SCH ×2 (13:45→19:45)
[2018-09-16] MEDS ORDERED: Moxifloxacin IV 400mg/250ml NS 400 MG/250 ML BAG IVPB SCH (14:00)
--- NOTE | 2018-09-16 15:49 | CARD ---
APPROVED REPORT Date of service: 09/16/2018 EXAM: Two-dimensional and M-mode echocardiogram with Doppler and color Doppler. INDICATION asthma / arthitis RISK FACTORS Hyperlipidemia 2D DIMENSIONS IVSd0.7 (0.7-1.1cm)Aortic Root (2D)2.8 (2.0-3.7cm) LVDd4.5 (3.9-5.9cm)PWd0.8 (0.7-1.1cm) LA Ndwrkb13 (18-58mL)LVDs3.7 (2.5-4.0cm) FS (%) 17.4 %LVEF (%)36.5 (>50%) LVEF (Edwards's)59.86 %IVC0.00 cm M-Mode DIMENSIONS Left Atrium (MM)1.89 (2.5-4.0cm)IVSd0.45 (0.7-1.1cm) Aortic Root2.64 (2.2-3.7cm)LVDd3.58 (4.0-5.6cm) Aortic Cusp Exc.0.72 (1.5-2.0cm)PWd0.54 (0.7-1.1cm) FS (%) 24 %LVDs2.71 (2.0-3.8cm) TAPSE9.72 cmLVEF (%)49 (>50%) Aortic Valve AI P 1/2 [id number] Mitral Valve MV E Fdrzgvhf04.4cm/sMV A Egnpjiiu97.3cm/sE/A ratio1.8 TDI Lateral E' Peak V4.35cm/sMedial E' Peak V14.61cm/sE/Lateral E'20.1 E/Medial E'6.0 Tricuspid Valve TR Peak Xpyxjyka247id/sTR Peak Gr.[id number] LEFT VENTRICLE The left ventricle is normal size. There is borderline concentric left ventricular hypertrophy. The left ventricular function is normal. The left ventricular ejection fraction is within the normal range. There is normal LV segmental wall motion. Transmitral Doppler flow pattern is Grade I-abnormal relaxation pattern. RIGHT VENTRICLE The right ventricle is mildly dilated and moderately hypokinetic ATRIA The left atrium size is normal. The right atrium size is normal. AORTIC VALVE The aortic valve is not well visualized. There is mild aortic regurgitation. There is no aortic valvular stenosis. MITRAL VALVE The mitral valve is mildly thickened. There is no evidence of mitral valve prolapse. There is no mitral valve stenosis. TRICUSPID VALVE The tricuspid valve is normal in structure. There is no tricuspid valve regurgitation noted. GREAT VESSELS The aortic root is normal in size. The IVC is dilated. PERICARDIAL EFFUSION There is a trace pericardial effusion. <Conclusion> There is borderline concentric left ventricular hypertrophy. There is normal LV segmental wall motion. The left ventricular function is normal. The left ventricular ejection fraction is within the normal range. Transmitral Doppler flow pattern is Grade I-abnormal relaxation pattern. The right ventricle is mildly dilated and moderately hypokinetic There is mild aortic regurgitation.
[2018-09-16 15:51] LABS: ARTERIAL BLOOD GAS HCO3 18.5 mmol/L (21-28); ARTERIAL BLOOD GAS O2 SAT 98.3 % (95-98); ARTERIAL BLOOD GAS PCO2 44 mm/Hg (35-45); ARTERIAL BLOOD GAS PH 7.24 (7.35-7.45); ARTERIAL BLOOD GAS PO2 126 mm/Hg (80-100); ARTERIAL BLOOD GAS TCO2 20.3 mmol/L (22-28)
[2018-09-16 16:24] LABS: LYMPH # 0.3 K/uL (1.0-4.3); MEAN CELL VOLUME 90.8 fL (81.0-99.0); MEAN CORPUSCULAR HGB CONC 32.9 g/dL (33.0-37.0)
[2018-09-16 16:32] LABS: BASO % 0.1 % (0.0-2.0); LYMPH % 1.6 % (20.0-40.0); MEAN CORPUSCULAR HEMOGLOBIN 29.8 pg (27.0-31.0); MEAN PLATELET VOLUME 7.7 fL (7.2-11.7); MONO # 0.8 K/uL (0.0-0.8); MONO % 4.1 % (0.0-10.0); NEUT % 94.2 % (50.0-75.0); PLATELET COUNT 287 K/uL (130-400); RBC 4.25 Mil/uL (3.80-5.20); RED CELL DISTRIBUTION WIDTH 12.8 % (11.5-14.5); WHITE BLOOD COUNT 20.2 K/uL (4.8-10.8)
[2018-09-16 16:33] LABS: INR 1.6
[2018-09-16 16:35] LABS: HEMOGLOBIN 12.7 g/dL (11.0-16.0)
[2018-09-16 16:56] LABS: ANISOCYTOSIS SLIGHT; BANDS 20 % (0-2); HYPOCHROMIC SLIGHT; LYMPHOCYTE 3 % (20-40); MONOCYTE 3 % (0-10); NEUTROPHIL 74 % (50-75); PLATELET ESTIMATE NORMAL (NORMAL); POIKILOCYTOSIS SLIGHT; TOTAL CELLS COUNTED 100
[2018-09-16 16:57] LABS: BURR CELLS SLIGHT
[2018-09-16 17:12] LABS: ALB/GLOB RATIO 1.1 (1.0-2.1); ALBUMIN 2.9 g/dL (3.5-5.0); CALCIUM 7.7 mg/dl (8.6-10.4); CK-MB 8.51 ng/mL (0.0-3.38); TROPONIN I 3.75 ng/mL (0.00-0.120)
[2018-09-16] MEDS ORDERED: Norepinephrine 8 MG in Dextrose 5% In Water 500 ML IV PRN (17:30)
[2018-09-16 17:38] LABS: URINE BACTERIA OCC (<OCC); URINE BILIRUBIN NEGATIVE (NEGATIVE); URINE BLOOD 3+ (NEGATIVE); URINE CLARITY Hazy (Clear); URINE COLOR Amber (YELLOW); URINE GLUCOSE (UA) NORMAL (Normal); URINE PROTEIN 2+ mg/dL (NEGATIVE)
[2018-09-16 17:39] LABS: URINE LEUKOCYTE ESTERASE TRACE Leu/uL (Negative)
[2018-09-16] MEDS ORDERED: Lactobacillus Acidophilus 500 MU Cap PO SCH (18:45)
--- NOTE | 2018-09-16 19:05 | CP.PCM.PN ---
Subjective - Date & Time of Evaluation Date of Evaluation: 09/16/18 Time of Evaluation: 19:04 - Subjective Subjective: Code Freeze Note ICU Adult Induced hypothermia induced at 09/16 3:35pm. Prior, CT head negative and EKG with sinus tachycardia. Patient at 7:04pm at 34.2C, target body temp at 32-34C Water temp 5C Current vent settings: rate 20, TV 450, PEEP 5, FiO2 100% discussed with Dr. Damir Hunt PGY1 Objective - Vital Signs/Intake and Output Vital Signs (last 24 hours): Temp Pulse Resp BP Pulse Ox 99.8 F H 114 H 20 134/64 99 09/16/18 08:50 09/16/18 17:52 09/16/18 17:52 09/16/18 17:52 09/16/18 17:52 Intake and Output: 09/16/18 09/17/18 18:59 06:59 Intake Total 394 Balance 394 - Medications Medications: Current Medications Albuterol/Ipratropium (Duoneb 3 Mg/0.5 Mg (3 Ml) Ud) 3 ml INH RQ6 TAMIR Last Admin: 09/16/18 13:45 Dose: Not Given Calcium Acetate (Phoslo) 667 mg GT BIDCC ONE Stop: 09/17/18 18:06 Dopamine HCl/Dextrose (Dopamine 400mg/250ml D5w) 400 mg in 250 mls @ 13.125 mls/hr IV .Q19H3M PRN; Protocol PRN Reason: TITRATE PER MD ORDER Last Titration: 09/16/18 17:45 Dose: 0 mcg/kg/min, 0 mls/hr Heparin Sodium/Sodium Chloride (Heparin 42646 Units/250ml 1/2 Normal Saline) 25,000 units in 250 mls @ 8.4 mls/hr IV .Q24H PRN; Protocol PRN Reason: ADJUST RATE PER PROTOCOL Last Titration: 09/16/18 15:00 Dose: 0 units/kg/hr, 0 mls/hr Moxifloxacin HCl (Avelox Iv 400mg/250ml Ns) 400 mg in 250 mls @ 167 mls/hr IVPB Q24H TAMIR; Protocol Last Admin: 09/16/18 13:13 Dose: 167 mls/hr Norepinephrine Bitartrate 8 mg (/ Dextrose) 508 mls @ 38.1 mls/hr IV .[id number] PRN; Protocol PRN Reason: TITRATE PER MD ORDER Last Admin: 09/16/18 17:52 Dose: 14 mcg/min, 53.34 mls/hr Potassium Chloride (Potassium Chloride 20 Meq/100 Ml) 20 meq in 100 mls @ 50 mls/hr IVPB ONCE ONE Stop: 09/16/18 20:04 Last Admin: 09/16/18 18:33 Dose: 50 mls/hr Acetaminophen (Ofirmev) 100 mls @ 100 mls/hr IV Q6H PRN PRN Reason: Fever >100.4 F Stop: 09/17/18 18:09 Potassium Chloride (Potassium Chloride 20 Meq/100 Ml) 20 meq in 100 mls @ 50 mls/hr IVPB ONCE ONE Stop: 09/16/18 21:59 Potassium Chloride (Potassium Chloride 20 Meq/100 Ml) 20 meq in 100 mls @ 50 mls/hr IVPB ONCE ONE Stop: 09/16/18 23:59 Lactobacillus Acidophilus (Bacid Acidophilus) 1 cap PO BID TAMIR Methylprednisolone (Solu-Medrol) 40 mg IVP Q12H TAMIR Last Admin: 09/16/18 13:30 Dose: 40 mg - Labs Labs: 09/16/18 16:17 09/16/18 16:17 PT 18.0 SECONDS (9.7-12.2) H 09/16/18 16:17 INR 1.6 09/16/18 16:17 APTT 36 SECONDS (21-34) H D 09/16/18 16:17
[2018-09-16 21:05] LABS: ARTERIAL BLOOD GAS HCO3 16.9 mmol/L (21-28); ARTERIAL BLOOD GAS O2 SAT 98.5 % (95-98); ARTERIAL BLOOD GAS PCO2 35 mm/Hg (35-45); ARTERIAL BLOOD GAS PH 7.26 (7.35-7.45); ARTERIAL BLOOD GAS PO2 143 mm/Hg (80-100); ARTERIAL BLOOD GAS TCO2 16.8 mmol/L (22-28)
--- NOTE | 2018-09-16 22:26 | PN ---
DATE: 09/16/2018 The case was discussed with berry picker machine operator, Dr. Reich. Suspicion was possibly to pulmonary embolism. The patient was started on IV heparin infusion; however, heparin was discontinued because of hematuria and some red clot from the nasogastric tube suction. 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 There were inferior ischemic T-wave changes; however, there were no acute ischemic ST-segment changes to justify code heart activation. Venous Doppler of the lower extremity was ordered as a but has not been performed yet. The patient is not a suitable candidate for invasive cardiac workup at this time. Kyrie Carter MD
[2018-09-16 22:28] LABS: BASO # 0.1 K/uL (0.0-0.2); BASO % 0.3 % (0.0-2.0); EOS % 0.1 % (0.0-4.0); HEMOGLOBIN 12.4 g/dL (11.0-16.0); LYMPH # 0.4 K/uL (1.0-4.3); MEAN CELL VOLUME 90.3 fL (81.0-99.0); MEAN CORPUSCULAR HEMOGLOBIN 29.9 pg (27.0-31.0); MEAN CORPUSCULAR HGB CONC 33.1 g/dL (33.0-37.0); MEAN PLATELET VOLUME 7.6 fL (7.2-11.7); MONO # 0.2 K/uL (0.0-0.8); MONO % 1.3 % (0.0-10.0); NEUT # 17.9 K/uL (1.8-7.0); NEUT % 96.3 % (50.0-75.0); PLATELET COUNT 188 K/uL (130-400); RBC 4.16 Mil/uL (3.80-5.20); RED CELL DISTRIBUTION WIDTH 12.8 % (11.5-14.5); WHITE BLOOD COUNT 18.5 K/uL (4.8-10.8)
[2018-09-16 22:38] LABS: INR 1.7; PROTHROMBIN TIME 18.3 SECONDS (9.7-12.2)
[2018-09-16 22:42] LABS: CALCIUM 7.6 mg/dl (8.6-10.4)
[2018-09-16 22:46] LABS: BANDS 21 % (0-2); LYMPHOCYTE 4 % (20-40); MONOCYTE 1 % (0-10); NEUTROPHIL 74 % (50-75); PLATELET ESTIMATE NORMAL (NORMAL); TOTAL CELLS COUNTED 100
[2018-09-16 22:47] LABS: ANISOCYTOSIS SLIGHT; BURR CELLS MODERATE; POIKILOCYTOSIS SLIGHT
[2018-09-16] MEDS ORDERED: Potassium Chloride 20 MEQ in Lactated Ringer's 1,000 ML IV SCH (23:45)
[2018-09-17] MEDS: MethylPREDNISolone 40 mg Vial IVP SCH ×4 (02:00→23:10)
[2018-09-17] MEDS: Albuterol-Ipratrop 3 mg / 0.5 (3 ml) UD INH SCH ×4 (02:30→20:08)
--- NOTE | 2018-09-17 03:18 | CON ---
DATE: 09/16/2018 REASON FOR CONSULTATION: Cardiac arrest and hypotension. HISTORY OF PRESENT ILLNESS: The patient is an 87-year-old female who, according to her family, had no prior cardiac history except for a history of hypertension. The patient also has a history of bronchial asthma and was brought in because of altered mental status. The patient was found by EMS to be unresponsive and was intubated in the field and was brought to the emergency room. According to the nursing team, the patient in the emergency room experienced pulseless electrical activity and required resuscitation, but no defibrillation was needed. The patient was transferred to the ICU and is currently on dopamine and Levophed infusion. No reported ventricular tachycardia. SOCIAL HISTORY: Nonsmoker. MEDICATIONS: Current medications are Avelox 400 mg intravenously daily, dopamine and Levophed infusion, intravenous heparin in a therapeutic regimen for acute coronary syndrome, Solu-Medrol 40 mg intravenously every 12 hours. PHYSICAL EXAMINATION GENERAL: The patient is an elderly female who is unresponsive on the ventilator. VITAL SIGNS: Most recent blood pressure around 10:30 a.m. is 87/46, heart rate 152, temperature 99.8. HEENT: Pale conjunctivae. CHEST: Absent breath sounds over the bases. HEART: S1 and S2 regular. EXTREMITIES: 1+ pitting edema. LABORATORY DATA: Today's SMA-7: Sodium 128, potassium 3.7, chloride 91, CO2 of 23, glucose 202, BUN 27, creatinine 2.3. Troponins are 0.181 and 2.57. ProBNP is 2640. Magnesium is 2.5. INR is 1.6. Hemoglobin and hematocrit are 9.7 and 28.7, white count 14.3, platelet count 112,000. Head CT scan without contrast, no acute hemorrhage. Chest x-ray on admission was unremarkable. Official reading; no infiltrate, ET tube in appropriate position, otherwise unremarkable. Subsequent chest x-ray revealed mild pulmonary edema. EKG could not be found on the system. Echocardiographic study revealed borderline concentric LVH with normal left ventricular systolic function, the right ventricle is mildly dilated with moderate hypokinesis and mild aortic insufficiency. ASSESSMENT: 1. Status post cardiac arrest. The patient was reported to be in pulseless electrical activity with borderline troponin elevation, rule out myocardial infarction. 2. Chronic insufficiency. 3. Rule out underlying sepsis. 4. Right ventricular failure, rule out the possibility of acute pulmonary embolism. RECOMMENDATIONS: Continue current IV Avelox. Continue current pressors including dopamine and Levophed. Continue intravenous heparin therapeutic regimen. Obtain stat venous Doppler of the lower extremities. Consider ventilation perfusion scan once the patient is more stable. Overall, prognosis appears to be grave, and the patient is not a suitable candidate for invasive cardiac workup at least at this time. Kyrie Carter MD
[2018-09-17 05:45] LABS: ABG ALLEN TEST POS; ARTERIAL BLOOD GAS O2 SAT 98.6 % (95-98); ARTERIAL BLOOD GAS PCO2 48 mm/Hg (35-45); ARTERIAL BLOOD GAS PH 7.16 (7.35-7.45); ARTERIAL BLOOD GAS PO2 149 mm/Hg (80-100); ARTERIAL BLOOD GAS TCO2 18.6 mmol/L (22-28)
[2018-09-17 05:51] LABS: BASO % 0.2 % (0.0-2.0); EOS % 0.1 % (0.0-4.0); HEMOGLOBIN 12.2 g/dL (11.0-16.0); LYMPH # 0.4 K/uL (1.0-4.3); MEAN CELL VOLUME 90.8 fL (81.0-99.0); MEAN CORPUSCULAR HEMOGLOBIN 29.9 pg (27.0-31.0); MEAN PLATELET VOLUME 7.7 fL (7.2-11.7); MONO # 0.6 K/uL (0.0-0.8); MONO % 3.4 % (0.0-10.0); NEUT % 94.3 % (50.0-75.0); PLATELET COUNT 169 K/uL (130-400); RBC 4.06 Mil/uL (3.80-5.20); WHITE BLOOD COUNT 18.1 K/uL (4.8-10.8)
[2018-09-17 06:33] LABS: ALB/GLOB RATIO 1.2 (1.0-2.1); ALBUMIN 2.8 g/dL (3.5-5.0); CALCIUM 7.3 mg/dl (8.6-10.4)
[2018-09-17 06:45] LABS: LYMPHOCYTE 2 % (20-40); MONOCYTE 5 % (0-10); NEUTROPHIL 74 % (50-75); TOTAL CELLS COUNTED 100
[2018-09-17 06:54] LABS: PLATELET ESTIMATE NORMAL (NORMAL)
[2018-09-17] MEDS ORDERED: Insulin Human Regular 100 UNIT in Sodium Chloride 0.9% 99 ML IV SCH (07:00)
[2018-09-17] MEDS ORDERED: Insulin Human Regular 100 UNIT in Sodium Chloride 0.9% 99 ML IV PRN (08:30)
--- NOTE | 2018-09-17 08:48 | RAD ---
HISTORY: ETT COMPARISON: Chest x-ray performed 09/16/18 TECHNIQUE: Chest, one view. FINDINGS: Endotracheal tube terminates approximately 2.5 cm above the simón. Numerous external wires, leads, and devices obscure evaluation of the underlying parenchyma. At least 2 external defibrillator pads present. LUNGS: Patchy left-sided pulmonary infiltrates. Please note that chest x-ray has limited sensitivity for the detection of pulmonary masses. PLEURA: Blunting of the left costophrenic angle may reflect small pleural effusion. No definite pneumothorax . CARDIOVASCULAR: Cardiomegaly. Ectatic aorta. Atherosclerotic calcification of the aorta. No significant atherosclerotic calcification present. OSSEOUS STRUCTURES: Degenerative changes. VISUALIZED UPPER ABDOMEN: Elevation of the right hemidiaphragm. OTHER FINDINGS: None. IMPRESSION: Endotracheal tube terminates approximately 2.5 cm above the simón. Elevated right hemidiaphragm. Patchy left-sided pulmonary infiltrates. Trace left pleural effusion.
[2018-09-17] MEDS ORDERED: Magnesium Sulfate 1 gm in D5W 1 GM/100 ML BAG IVPB ONE (09:45)
[2018-09-17] MEDS: Norepinephrine 8 MG in Sodium Chloride 0.9% 242 ML IV PRN ×2 (10:25→22:59)
[2018-09-17 10:33] LABS: TROPONIN I 1.84 ng/mL (0.00-0.120)
[2018-09-17 11:02] LABS: BARBITURATES, UR NEGATIVE (NEGATIVE); BENZODIAZEPINES, UR NEGATIVE (NEGATIVE); OPIATES, UR NEGATIVE (NEGATIVE); PHENCYCLIDINE, UR NEGATIVE (NEGATIVE)
--- NOTE | 2018-09-17 11:37 | CP.CCUPN ---
CCU Subjective - Physician Review Subjective (Free Text): Patient currently undergoing hypothermic protocol, ROS limited 09/17/18 11:38 Critical Care Time Spent (in minutes): 38 CCU Objective - Vital Signs / Intake & Output Vital Signs (Last 4 hours): Vital Signs Pulse Resp BP Pulse Ox 09/17/18 10:25 98 H 24 120/62 98 09/17/18 09:10 96 H 21 72/56 L 98 09/17/18 09:00 97 H 21 99 09/17/18 08:55 98 H 21 97/48 L 96 09/17/18 08:50 99 H 23 99 09/17/18 08:40 101 H 22 98 09/17/18 08:30 102 H 26 H 98 09/17/18 08:25 103 H 23 125/106 H 09/17/18 08:24 103 H 23 125/106 H 99 09/17/18 08:10 101 H 25 H 62/37 L 100 Intake and Output (Last 8hrs): Intake & Output 09/16/18 09/17/18 09/17/18 22:59 06:59 14:59 Intake Total 1008.8 1061.7 646.2 Output Total 8 Balance 1008.8 1061.7 638.2 Weight 110 lb Intake: IV 278 341 Intake, IV Amount 730.8 1061.7 275.2 Right Distal Port Femoral 108.4 300 0 Right Forearm 0 Right Medial Port Femoral 49.4 500 200 Right Proximal Port 573 261.7 75.2 Femoral Oral 0 30 Tube Feeding 0 Output: Gastric Amount 0 Stomach 0 Urine 8 Urethral (Pelayo) 8 Other: # Voids Urethral (Pelayo) 10 10 5 # Bowel Movements 1 - Physical Exam Head: Positive for: Normocephalic Mouth: Positive for: Moist Mucous Membranes Respiratory/Chest: Positive for: Good Air Exchange, Respiratory Distress, Rho nchi. Negative for: Wheezes, Retracting Cardiovascular: Positive for: Murmurs, Normal S1, S2 Abdomen: Positive for: Distention, Normal Bowel Sounds. Negative for: Tenderness, Peritoneal Signs, Guarding Upper Extremity: Positive for: Normal Inspection Lower Extremity: Positive for: Normal Inspection, Edema Skin: Positive for: Warm, Dry Psychiatric: Negative for: Alert, Oriented x 3, Normal Insight - Medications Active Medications: Active Medications Generic Name Dose Route Start Last Admin Trade Name Freq PRN Reason Stop Dose Admin Albuterol/Ipratropium 3 ml 09/16/18 14:00 09/17/18 07:20 Duoneb 3 Mg/0.5 Mg (3 Ml) Ud INH 3 ml RQ6 TAMIR Administration Aspirin 81 mg 09/17/18 10:00 09/17/18 10:55 Aspirin Chewable PO 81 mg DAILY TAMIR Administration Calcium Acetate 667 mg 09/17/18 18:05 Phoslo GT 09/17/18 18:06 BIDCC ONE Clopidogrel Bisulfate 75 mg 09/17/18 11:00 09/17/18 10:55 Plavix PO 75 mg DAILY TAMIR Administration Famotidine 20 mg 09/17/18 11:15 09/17/18 11:06 Pepcid IVP Not Given DAILY [facility] Acetaminophen 100 mls @ 100 mls/hr 09/16/18 18:08 Ofirmev IV 09/17/18 18:09 Q6H PRN Fever >100.4 F Insulin Human Regular 100 unit 100 mls @ 0 mls/hr 09/17/18 08:30 09/17/18 10:11 / Sodium Chloride IV 2 mls/hr .Q0M PRN 2 mls/hr PER MD ORDER Titration Protocol Per Protocol Sodium Bicarbonate 75 meq/ 1,075 mls @ 75 mls/hr 09/17/18 09:45 09/17/18 10:37 Sodium Chloride IV 75 mls/hr .[id number] TAMIR Administration Calcium Gluconate 2,000 mg/ 270 mls @ 135 mls/hr 09/17/18 10:00 09/17/18 10:41 Sodium Chloride IVPB 09/17/18 11:59 135 mls/hr ONCE ONE Administration Per Protocol Norepinephrine Bitartrate 8 mg 250 mls @ 7.5 mls/hr 09/17/18 09:41 09/17/18 11:04 / Sodium Chloride IV 6 mcg/min .Q24H PRN 11.25 mls/hr TITRATE PER MD ORDER Titration Protocol 4 MCG/MIN Aztreonam 2 gm/ Sodium 100 mls @ 200 mls/hr 09/17/18 12:00 Chloride IVPB Q12H TAMIR Protocol Metronidazole 500 mg in 100 mls @ 100 mls/hr 09/17/18 13:00 Flagyl IVPB Q8H ATMIR Protocol Methylprednisolone 40 mg 09/17/18 10:00 09/17/18 10:55 Solu-Medrol IVP 40 mg Q6 TAMIR Administration - Patient Studies Lab Studies: Microbiology Studies 09/16/18 10:11 Blood Culture - Preliminary Blood NO GROWTH AFTER 24 HOURS 09/16/18 09:13 Blood Culture - Preliminary Blood NO GROWTH AFTER 24 HOURS Lab Studies 09/17/18 09/17/18 09/17/18 Range/Units 10:33 10:06 09:02 WBC (4.8-10.8) K/uL RBC (3.80-5.20) Mil/uL Hgb (11.0-16.0) g/dL Hct (34.0-47.0) % MCV (81.0-99.0) fL MCH (27.0-31.0) pg MCHC (33.0-37.0) g/dL RDW (11.5-14.5) % Plt Count (130-400) K/uL MPV (7.2-11.7) fL Neut % (Auto) (50.0-75.0) % Lymph % (Auto) (20.0-40.0) % [place] % (Auto) (0.0-10.0) % Eos % (Auto) (0.0-4.0) % Baso % (Auto) (0.0-2.0) % Neut # (Auto) (1.8-7.0) K/uL Lymph # (Auto) (1.0-4.3) K/uL [place] # (Auto) (0.0-0.8) K/uL Eos # (Auto) (0.0-0.7) K/uL Baso # (Auto) (0.0-0.2) K/uL Neutrophils % (Manual) (50-75) % Band Neutrophils % (0-2) % Lymphocytes % (Manual) (20-40) % Monocytes % (Manual) (0-10) % Platelet Estimate (NORMAL) Hypochromasia (manual) Poikilocytosis (manual Anisocytosis (manual) [place] Cells PT (9.7-12.2) SECONDS INR APTT (21-34) SECONDS Puncture Site pCO2 (35-45) mm/Hg pO2 (80-100) mm/Hg HCO3 (21-28) mmol/L ABG pH (7.35-7.45) ABG Total CO2 (22-28) mmol/L ABG O2 Saturation (95-98) % ABG Base Excess (-2.0-3.0) mmol/L Bebo Test ABG Potassium (3.6-5.2) mmol/L A-a O2 Difference mm/Hg Respiratory Index Sodium (132-148) mmol/l Chloride (98-107) mmol/L Glucose (65-105) mg/dl Lactate (0.7-2.1) mmol/L Vent Mode Mechanical Rate FiO2 % Tidal Volume PEEP Crit Value Called To Crit Value Called By Crit Value Read Back Blood Gas Notified Time Potassium (3.6-5.2) mmol/L Carbon Dioxide (22-30) mmol/L Anion Gap (10-20) BUN (7-17) mg/dL Creatinine (0.7-1.2) mg/dL Est GFR ( Amer) Est GFR (Non-Af Amer) POC Glucose (mg/dL) 168 H 210 H (65-110) mg/dL Random Glucose (65-105) mg/dL Lactic Acid (0.7-2.1) mmol/L Calcium (8.6-10.4) mg/dl Phosphorus (2.5-4.5) mg/dL Magnesium (1.6-2.3) mg/dL Total Bilirubin (0.2-1.3) mg/dL AST (14-36) U/L ALT (9-52) U/L Alkaline Phosphatase (38-126) U/L Total Creatine Kinase (30-135) U/L CK-MB (Mass) (0.0-3.38) ng/mL Troponin I (0.00-0.120) ng/mL Total Protein (6.3-8.3) g/dL Albumin (3.5-5.0) g/dL Globulin (2.2-3.9) gm/dL Albumin/Globulin Ratio (1.0-2.1) Arterial Blood Potassium (3.6-5.2) mmol/L Urine Color (YELLOW) Urine Clarity (Clear) Urine pH (5.0-8.0) Ur Specific [place] (1.003-1.030) Urine Protein (NEGATIVE) mg/dL Urine Glucose (UA) (Normal) mg/dL Urine Ketones (NEGATIVE) mg/dL Urine Blood (NEGATIVE) Urine Nitrate (NEGATIVE) Urine Bilirubin (NEGATIVE) Urine Urobilinogen (0.2-1.0) mg/dL Ur Leukocyte Esterase (Negative) Shawna/uL Urine WBC (Auto) (0-5) /hpf Urine RBC (Auto) (0-3) /hpf Urine Bacteria (<OCC) Urine Opiates Screen Negative (NEGATIVE) Urine Methadone Screen Negative (NEGATIVE) Ur Barbiturates Screen Negative (NEGATIVE) Ur Phencyclidine Scrn Negative (NEGATIVE) Ur Amphetamines Screen Negative (NEGATIVE) U Benzodiazepines Scrn Negative (NEGATIVE) U Oth Cocaine Metabols Negative (NEGATIVE) U Cannabinoids Screen Negative (NEGATIVE) 09/17/18 09/17/18 09/17/18 Range/Units 08:11 07:21 07:06 WBC (4.8-10.8) K/uL RBC (3.80-5.20) Mil/uL Hgb (11.0-16.0) g/dL Hct (34.0-47.0) % MCV (81.0-99.0) fL MCH (27.0-31.0) pg MCHC (33.0-37.0) g/dL RDW (11.5-14.5) % Plt Count (130-400) K/uL MPV (7.2-11.7) fL Neut % (Auto) (50.0-75.0) % Lymph % (Auto) (20.0-40.0) % [place] % (Auto) (0.0-10.0) % Eos % (Auto) (0.0-4.0) % Baso % (Auto) (0.0-2.0) % Neut # (Auto) (1.8-7.0) K/uL Lymph # (Auto) (1.0-4.3) K/uL [place] # (Auto) (0.0-0.8) K/uL Eos # (Auto) (0.0-0.7) K/uL Baso # (Auto) (0.0-0.2) K/uL Neutrophils % (Manual) (50-75) % Band Neutrophils % (0-2) % Lymphocytes % (Manual) (20-40) % Monocytes % (Manual) (0-10) % Platelet Estimate (NORMAL) Hypochromasia (manual) Poikilocytosis (manual Anisocytosis (manual) [place] Cells PT (9.7-12.2) SECONDS INR APTT (21-34) SECONDS Puncture Site pCO2 (35-45) mm/Hg pO2 (80-100) mm/Hg HCO3 (21-28) mmol/L ABG pH (7.35-7.45) ABG Total CO2 (22-28) mmol/L ABG O2 Saturation (95-98) % ABG Base Excess (-2.0-3.0) mmol/L Bebo Test ABG Potassium (3.6-5.2) mmol/L A-a O2 Difference mm/Hg Respiratory Index Sodium (132-148) mmol/l Chloride (98-107) mmol/L Glucose (65-105) mg/dl Lactate (0.7-2.1) mmol/L Vent Mode Mechanical Rate FiO2 % Tidal Volume PEEP Crit Value Called To Crit Value Called By Crit Value Read Back Blood Gas Notified Time Potassium (3.6-5.2) mmol/L Carbon Dioxide (22-30) mmol/L Anion Gap (10-20) BUN (7-17) mg/dL Creatinine (0.7-1.2) mg/dL Est GFR ( Amer) Est GFR (Non-Af Amer) POC Glucose (mg/dL) 220 H 252 H 274 H (65-110) mg/dL Random Glucose (65-105) mg/dL Lactic Acid (0.7-2.1) mmol/L Calcium (8.6-10.4) mg/dl Phosphorus (2.5-4.5) mg/dL Magnesium (1.6-2.3) mg/dL Total Bilirubin (0.2-1.3) mg/dL AST (14-36) U/L ALT (9-52) U/L Alkaline Phosphatase (38-126) U/L Total Creatine Kinase (30-135) U/L CK-MB (Mass) (0.0-3.38) ng/mL Troponin I (0.00-0.120) ng/mL Total Protein (6.3-8.3) g/dL Albumin (3.5-5.0) g/dL Globulin (2.2-3.9) gm/dL Albumin/Globulin Ratio (1.0-2.1) Arterial Blood Potassium (3.6-5.2) mmol/L Urine Color (YELLOW) Urine Clarity (Clear) Urine pH (5.0-8.0) Ur Specific [place] (1.003-1.030) Urine Protein (NEGATIVE) mg/dL Urine Glucose (UA) (Normal) mg/dL Urine Ketones (NEGATIVE) mg/dL Urine Blood (NEGATIVE) Urine Nitrate (NEGATIVE) Urine Bilirubin (NEGATIVE) Urine Urobilinogen (0.2-1.0) mg/dL Ur Leukocyte Esterase (Negative) Shawna/uL Urine WBC (Auto) (0-5) /hpf Urine RBC (Auto) (0-3) /hpf Urine Bacteria (<OCC) Urine Opiates Screen (NEGATIVE) Urine Methadone Screen (NEGATIVE) Ur Barbiturates Screen (NEGATIVE) Ur Phencyclidine Scrn (NEGATIVE) Ur Amphetamines Screen (NEGATIVE) U Benzodiazepines Scrn (NEGATIVE) U Oth Cocaine Metabols (NEGATIVE) U Cannabinoids Screen (NEGATIVE) 09/17/18 09/17/18 09/17/18 Range/Units 06:14 05:47 05:47 WBC (4.8-10.8) K/uL RBC (3.80-5.20) Mil/uL Hgb (11.0-16.0) g/dL Hct (34.0-47.0) % MCV (81.0-99.0) fL MCH (27.0-31.0) pg MCHC (33.0-37.0) g/dL RDW (11.5-14.5) % Plt Count (130-400) K/uL MPV (7.2-11.7) fL Neut % (Auto) (50.0-75.0) % Lymph % (Auto) (20.0-40.0) % [place] % (Auto) (0.0-10.0) % Eos % (Auto) (0.0-4.0) % Baso % (Auto) (0.0-2.0) % Neut # (Auto) (1.8-7.0) K/uL Lymph # (Auto) (1.0-4.3) K/uL [place] # (Auto) (0.0-0.8) K/uL Eos # (Auto) (0.0-0.7) K/uL Baso # (Auto) (0.0-0.2) K/uL Neutrophils % (Manual) (50-75) % Band Neutrophils % (0-2) % Lymphocytes % (Manual) (20-40) % Monocytes % (Manual) (0-10) % Platelet Estimate (NORMAL) Hypochromasia (manual) Poikilocytosis (manual Anisocytosis (manual) [place] Cells PT (9.7-12.2) SECONDS INR APTT (21-34) SECONDS Puncture Site pCO2 (35-45) mm/Hg pO2 (80-100) mm/Hg HCO3 (21-28) mmol/L ABG pH (7.35-7.45) ABG Total CO2 (22-28) mmol/L ABG O2 Saturation (95-98) % ABG Base Excess (-2.0-3.0) mmol/L Bebo Test ABG Potassium (3.6-5.2) mmol/L A-a O2 Difference mm/Hg Respiratory Index Sodium 127 L (132-148) mmol/l Chloride 93 L (98-107) mmol/L Glucose (65-105) mg/dl Lactate (0.7-2.1) mmol/L Vent Mode Mechanical Rate FiO2 % Tidal Volume PEEP Crit Value Called To Crit Value Called By Crit Value Read Back Blood Gas Notified Time Potassium 4.4 (3.6-5.2) mmol/L Carbon Dioxide 18 L (22-30) mmol/L Anion Gap 20 (10-20) BUN 35 H (7-17) mg/dL Creatinine 2.1 H (0.7-1.2) mg/dL Est GFR ( Amer) 27 Est GFR (Non-Af Amer) 22 POC Glucose (mg/dL) 328 H (65-110) mg/dL Random Glucose 228 H D (65-105) mg/dL Lactic Acid 7.6 H* (0.7-2.1) mmol/L Calcium 7.3 L (8.6-10.4) mg/dl Phosphorus 5.4 H (2.5-4.5) mg/dL Magnesium 1.8 (1.6-2.3) mg/dL Total Bilirubin 0.7 (0.2-1.3) mg/dL AST 428 H D (14-36) U/L ALT 384 H D (9-52) U/L Alkaline Phosphatase 126 D (38-126) U/L Total Creatine Kinase (30-135) U/L CK-MB (Mass) (0.0-3.38) ng/mL Troponin I 1.8400 H* (0.00-0.120) ng/mL Total Protein 5.1 L (6.3-8.3) g/dL Albumin 2.8 L (3.5-5.0) g/dL Globulin 2.3 (2.2-3.9) gm/dL Albumin/Globulin Ratio 1.2 (1.0-2.1) Arterial Blood Potassium (3.6-5.2) mmol/L Urine Color (YELLOW) Urine Clarity (Clear) Urine pH (5.0-8.0) Ur Specific [place] (1.003-1.030) Urine Protein (NEGATIVE) mg/dL Urine Glucose (UA) (Normal) mg/dL Urine Ketones (NEGATIVE) mg/dL Urine Blood (NEGATIVE) Urine Nitrate (NEGATIVE) Urine Bilirubin (NEGATIVE) Urine Urobilinogen (0.2-1.0) mg/dL Ur Leukocyte Esterase (Negative) Shawna/uL Urine WBC (Auto) (0-5) /hpf Urine RBC (Auto) (0-3) /hpf Urine Bacteria (<OCC) Urine Opiates Screen (NEGATIVE) Urine Methadone Screen (NEGATIVE) Ur Barbiturates Screen (NEGATIVE) Ur Phencyclidine Scrn (NEGATIVE) Ur Amphetamines Screen (NEGATIVE) U Benzodiazepines Scrn (NEGATIVE) U Oth Cocaine Metabols (NEGATIVE) U Cannabinoids Screen (NEGATIVE) 09/17/18 09/17/18 09/17/18 Range/Units 05:47 05:35 05:27 WBC 18.1 H (4.8-10.8) K/uL RBC 4.06 (3.80-5.20) Mil/uL Hgb 12.2 (11.0-16.0) g/dL Hct 36.9 (34.0-47.0) % MCV 90.8 (81.0-99.0) fL MCH 29.9 (27.0-31.0) pg MCHC 33.0 (33.0-37.0) g/dL RDW 13.0 (11.5-14.5) % Plt Count 169 (130-400) K/uL MPV 7.7 (7.2-11.7) fL Neut % (Auto) 94.3 H (50.0-75.0) % Lymph % (Auto) 2.0 L (20.0-40.0) % [place] % (Auto) 3.4 (0.0-10.0) % Eos % (Auto) 0.1 (0.0-4.0) % Baso % (Auto) 0.2 (0.0-2.0) % Neut # (Auto) 17.0 H (1.8-7.0) K/uL Lymph # (Auto) 0.4 L (1.0-4.3) K/uL [place] # (Auto) 0.6 (0.0-0.8) K/uL Eos # (Auto) 0.0 (0.0-0.7) K/uL Baso # (Auto) 0.0 (0.0-0.2) K/uL Neutrophils % (Manual) 74 (50-75) % Band Neutrophils % 19 H* (0-2) % Lymphocytes % (Manual) 2 L (20-40) % Monocytes % (Manual) 5 (0-10) % Platelet Estimate Normal (NORMAL) Hypochromasia (manual) Poikilocytosis (manual Anisocytosis (manual) [place] Cells PT (9.7-12.2) SECONDS INR APTT (21-34) SECONDS Puncture Site Rr pCO2 48 H (35-45) mm/Hg pO2 149 H (80-100) mm/Hg HCO3 16.0 L (21-28) mmol/L ABG pH 7.16 L* (7.35-7.45) ABG Total CO2 18.6 L (22-28) mmol/L ABG O2 Saturation 98.6 H (95-98) % ABG Base Excess -11.5 L (-2.0-3.0) mmol/L Bebo Test Pos ABG Potassium 4.1 (3.6-5.2) mmol/L A-a O2 Difference 504.0 mm/Hg Respiratory Index 3.4 Sodium 126.0 L (132-148) mmol/l Chloride 94.0 L (98-107) mmol/L Glucose 239 H (65-105) mg/dl Lactate 7.7 H* (0.7-2.1) mmol/L Vent Mode Prvc Mechanical Rate 20 FiO2 100.0 % Tidal Volume 450 PEEP 5 Crit Value Called To Halina rn Crit Value Called By Juan Francisco health sciences manager Crit Value Read Back Y Blood Gas Notified Time 545 Potassium (3.6-5.2) mmol/L Carbon Dioxide (22-30) mmol/L Anion Gap (10-20) BUN (7-17) mg/dL Creatinine (0.7-1.2) mg/dL Est GFR ( Amer) Est GFR (Non-Af Amer) POC Glucose (mg/dL) 275 H (65-110) mg/dL Random Glucose (65-105) mg/dL Lactic Acid (0.7-2.1) mmol/L Calcium (8.6-10.4) mg/dl Phosphorus (2.5-4.5) mg/dL Magnesium (1.6-2.3) mg/dL Total Bilirubin (0.2-1.3) mg/dL AST (14-36) U/L ALT (9-52) U/L Alkaline Phosphatase (38-126) U/L Total Creatine Kinase (30-135) U/L CK-MB (Mass) (0.0-3.38) ng/mL Troponin I (0.00-0.120) ng/mL Total Protein (6.3-8.3) g/dL Albumin (3.5-5.0) g/dL Globulin (2.2-3.9) gm/dL Albumin/Globulin Ratio (1.0-2.1) Arterial Blood Potassium 4.1 (3.6-5.2) mmol/L Urine Color (YELLOW) Urine Clarity (Clear) Urine pH (5.0-8.0) Ur Specific [place] (1.003-1.030) Urine Protein (NEGATIVE) mg/dL Urine Glucose (UA) (Normal) mg/dL Urine Ketones (NEGATIVE) mg/dL Urine Blood (NEGATIVE) Urine Nitrate (NEGATIVE) Urine Bilirubin (NEGATIVE) Urine Urobilinogen (0.2-1.0) mg/dL Ur Leukocyte Esterase (Negative) Shawna/uL Urine WBC (Auto) (0-5) /hpf Urine RBC (Auto) (0-3) /hpf Urine Bacteria (<OCC) Urine Opiates Screen (NEGATIVE) Urine Methadone Screen (NEGATIVE) Ur Barbiturates Screen (NEGATIVE) Ur Phencyclidine Scrn (NEGATIVE) Ur Amphetamines Screen (NEGATIVE) U Benzodiazepines Scrn (NEGATIVE) U Oth Cocaine Metabols (NEGATIVE) U Cannabinoids Screen (NEGATIVE) 09/17/18 09/17/18 09/17/18 Range/Units 04:18 03:21 02:44 WBC (4.8-10.8) K/uL RBC (3.80-5.20) Mil/uL Hgb (11.0-16.0) g/dL Hct (34.0-47.0) % MCV (81.0-99.0) fL MCH (27.0-31.0) pg MCHC (33.0-37.0) g/dL RDW (11.5-14.5) % Plt Count (130-400) K/uL MPV (7.2-11.7) fL Neut % (Auto) (50.0-75.0) % Lymph % (Auto) (20.0-40.0) % [place] % (Auto) (0.0-10.0) % Eos % (Auto) (0.0-4.0) % Baso % (Auto) (0.0-2.0) % Neut # (Auto) (1.8-7.0) K/uL Lymph # (Auto) (1.0-4.3) K/uL [place] # (Auto) (0.0-0.8) K/uL Eos # (Auto) (0.0-0.7) K/uL Baso # (Auto) (0.0-0.2) K/uL Neutrophils % (Manual) (50-75) % Band Neutrophils % (0-2) % Lymphocytes % (Manual) (20-40) % Monocytes % (Manual) (0-10) % Platelet Estimate (NORMAL) Hypochromasia (manual) Poikilocytosis (manual Anisocytosis (manual) [place] Cells PT (9.7-12.2) SECONDS INR APTT (21-34) SECONDS Puncture Site pCO2 (35-45) mm/Hg pO2 (80-100) mm/Hg HCO3 (21-28) mmol/L ABG pH (7.35-7.45) ABG Total CO2 (22-28) mmol/L ABG O2 Saturation (95-98) % ABG Base Excess (-2.0-3.0) mmol/L Bebo Test ABG Potassium (3.6-5.2) mmol/L A-a O2 Difference mm/Hg Respiratory Index Sodium (132-148) mmol/l Chloride (98-107) mmol/L Glucose (65-105) mg/dl Lactate (0.7-2.1) mmol/L Vent Mode Mechanical Rate FiO2 % Tidal Volume PEEP Crit Value Called To Crit Value Called By Crit Value Read Back Blood Gas Notified Time Potassium (3.6-5.2) mmol/L Carbon Dioxide (22-30) mmol/L Anion Gap (10-20) BUN (7-17) mg/dL Creatinine (0.7-1.2) mg/dL Est GFR ( Amer) Est GFR (Non-Af Amer) POC Glucose (mg/dL) 290 H 337 H 327 H (65-110) mg/dL Random Glucose (65-105) mg/dL Lactic Acid (0.7-2.1) mmol/L Calcium (8.6-10.4) mg/dl Phosphorus (2.5-4.5) mg/dL Magnesium (1.6-2.3) mg/dL Total Bilirubin (0.2-1.3) mg/dL AST (14-36) U/L ALT (9-52) U/L Alkaline Phosphatase (38-126) U/L Total Creatine Kinase (30-135) U/L CK-MB (Mass) (0.0-3.38) ng/mL Troponin I (0.00-0.120) ng/mL Total Protein (6.3-8.3) g/dL Albumin (3.5-5.0) g/dL Globulin (2.2-3.9) gm/dL Albumin/Globulin Ratio (1.0-2.1) Arterial Blood Potassium (3.6-5.2) mmol/L Urine Color (YELLOW) Urine Clarity (Clear) Urine pH (5.0-8.0) Ur Specific [place] (1.003-1.030) Urine Protein (NEGATIVE) mg/dL Urine Glucose (UA) (Normal) mg/dL Urine Ketones (NEGATIVE) mg/dL Urine Blood (NEGATIVE) Urine Nitrate (NEGATIVE) Urine Bilirubin (NEGATIVE) Urine Urobilinogen (0.2-1.0) mg/dL Ur Leukocyte Esterase (Negative) Shawna/uL Urine WBC (Auto) (0-5) /hpf Urine RBC (Auto) (0-3) /hpf Urine Bacteria (<OCC) Urine Opiates Screen (NEGATIVE) Urine Methadone Screen (NEGATIVE) Ur Barbiturates Screen (NEGATIVE) Ur Phencyclidine Scrn (NEGATIVE) Ur Amphetamines Screen (NEGATIVE) U Benzodiazepines Scrn (NEGATIVE) U Oth Cocaine Metabols (NEGATIVE) U Cannabinoids Screen (NEGATIVE) 09/17/18 09/17/18 09/16/18 Range/Units 01:45 00:09 23:26 WBC (4.8-10.8) K/uL RBC (3.80-5.20) Mil/uL Hgb (11.0-16.0) g/dL Hct (34.0-47.0) % MCV (81.0-99.0) fL MCH (27.0-31.0) pg MCHC (33.0-37.0) g/dL RDW (11.5-14.5) % Plt Count (130-400) K/uL MPV (7.2-11.7) fL Neut % (Auto) (50.0-75.0) % Lymph % (Auto) (20.0-40.0) % [place] % (Auto) (0.0-10.0) % Eos % (Auto) (0.0-4.0) % Baso % (Auto) (0.0-2.0) % Neut # (Auto) (1.8-7.0) K/uL Lymph # (Auto) (1.0-4.3) K/uL [place] # (Auto) (0.0-0.8) K/uL Eos # (Auto) (0.0-0.7) K/uL Baso # (Auto) (0.0-0.2) K/uL Neutrophils % (Manual) (50-75) % Band Neutrophils % (0-2) % Lymphocytes % (Manual) (20-40) % Monocytes % (Manual) (0-10) % Platelet Estimate (NORMAL) Hypochromasia (manual) Poikilocytosis (manual Anisocytosis (manual) [place] Cells PT (9.7-12.2) SECONDS INR APTT (21-34) SECONDS Puncture Site pCO2 (35-45) mm/Hg pO2 (80-100) mm/Hg HCO3 (21-28) mmol/L ABG pH (7.35-7.45) ABG Total CO2 (22-28) mmol/L ABG O2 Saturation (95-98) % ABG Base Excess (-2.0-3.0) mmol/L [place] Test ABG Potassium (3.6-5.2) mmol/L A-a O2 Difference mm/Hg Respiratory Index Sodium (132-148) mmol/l Chloride (98-107) mmol/L Glucose (65-105) mg/dl Lactate (0.7-2.1) mmol/L Vent Mode Mechanical Rate FiO2 % Tidal Volume PEEP Crit Value Called To Crit Value Called By Crit Value Read Back Blood Gas Notified Time Potassium (3.6-5.2) mmol/L Carbon Dioxide (22-30) mmol/L Anion Gap (10-20) BUN (7-17) mg/dL Creatinine (0.7-1.2) mg/dL Est GFR ( Amer) Est GFR (Non-Af Amer) POC Glucose (mg/dL) 356 H 324 H 361 H (65-110) mg/dL Random Glucose (65-105) mg/dL Lactic Acid (0.7-2.1) mmol/L Calcium (8.6-10.4) mg/dl Phosphorus (2.5-4.5) mg/dL Magnesium (1.6-2.3) mg/dL Total Bilirubin (0.2-1.3) mg/dL AST (14-36) U/L ALT (9-52) U/L Alkaline Phosphatase (38-126) U/L Total Creatine Kinase (30-135) U/L CK-MB (Mass) (0.0-3.38) ng/mL Troponin I (0.00-0.120) ng/mL Total Protein (6.3-8.3) g/dL Albumin (3.5-5.0) g/dL Globulin (2.2-3.9) gm/dL Albumin/Globulin Ratio (1.0-2.1) Arterial Blood Potassium (3.6-5.2) mmol/L Urine Color (YELLOW) Urine Clarity (Clear) Urine pH (5.0-8.0) Ur Specific [place] (1.003-1.030) Urine Protein (NEGATIVE) mg/dL Urine Glucose (UA) (Normal) mg/dL Urine Ketones (NEGATIVE) mg/dL Urine Blood (NEGATIVE) Urine Nitrate (NEGATIVE) Urine Bilirubin (NEGATIVE) Urine Urobilinogen (0.2-1.0) mg/dL Ur Leukocyte Esterase (Negative) [place]/uL Urine WBC (Auto) (0-5) /hpf Urine RBC (Auto) (0-3) /hpf Urine Bacteria (<OCC) Urine Opiates Screen (NEGATIVE) Urine Methadone Screen (NEGATIVE) Ur Barbiturates Screen (NEGATIVE) Ur Phencyclidine Scrn (NEGATIVE) Ur Amphetamines Screen (NEGATIVE) U Benzodiazepines Scrn (NEGATIVE) U Oth Cocaine Metabols (NEGATIVE) U Cannabinoids Screen (NEGATIVE) 09/16/18 09/16/18 09/16/18 Range/Units 22:25 22:25 22:25 WBC 18.5 H (4.8-10.8) K/uL RBC 4.16 (3.80-5.20) Mil/uL Hgb 12.4 (11.0-16.0) g/dL Hct 37.6 (34.0-47.0) % MCV 90.3 (81.0-99.0) fL MCH 29.9 (27.0-31.0) pg MCHC 33.1 (33.0-37.0) g/dL RDW 12.8 (11.5-14.5) % Plt Count 188 (130-400) K/uL MPV 7.6 (7.2-11.7) fL Neut % (Auto) 96.3 H (50.0-75.0) % Lymph % (Auto) 2.0 L (20.0-40.0) % [place] % (Auto) 1.3 (0.0-10.0) % Eos % (Auto) 0.1 (0.0-4.0) % Baso % (Auto) 0.3 (0.0-2.0) % Neut # (Auto) 17.9 H (1.8-7.0) K/uL Lymph # (Auto) 0.4 L (1.0-4.3) K/uL [place] # (Auto) 0.2 (0.0-0.8) K/uL Eos # (Auto) 0.0 (0.0-0.7) K/uL Baso # (Auto) 0.1 (0.0-0.2) K/uL Neutrophils % (Manual) 74 (50-75) % Band Neutrophils % 21 H* (0-2) % Lymphocytes % (Manual) 4 L (20-40) % Monocytes % (Manual) 1 (0-10) % Platelet Estimate Normal (NORMAL) Hypochromasia (manual) Poikilocytosis (manual Slight Anisocytosis (manual) Slight [place] Cells Moderate PT 18.3 H (9.7-12.2) SECONDS INR 1.7 APTT 43 H D (21-34) SECONDS Puncture Site pCO2 (35-45) mm/Hg pO2 (80-100) mm/Hg HCO3 (21-28) mmol/L ABG pH (7.35-7.45) ABG Total CO2 (22-28) mmol/L ABG O2 Saturation (95-98) % ABG Base Excess (-2.0-3.0) mmol/L [place] Test ABG Potassium (3.6-5.2) mmol/L A-a O2 Difference mm/Hg Respiratory Index Sodium 126 L (132-148) mmol/l Chloride 89 L (98-107) mmol/L Glucose (65-105) mg/dl Lactate (0.7-2.1) mmol/L Vent Mode Mechanical Rate FiO2 % Tidal Volume PEEP Crit Value Called To Crit Value Called By Crit Value Read Back Blood Gas Notified Time Potassium 2.8 L (3.6-5.2) mmol/L Carbon Dioxide 19 L (22-30) mmol/L Anion Gap 20 (10-20) BUN 32 H (7-17) mg/dL Creatinine 2.2 H (0.7-1.2) mg/dL Est GFR ( Amer) 26 Est GFR (Non-Af Amer) 21 POC Glucose (mg/dL) (65-110) mg/dL Random Glucose 327 H D (65-105) mg/dL Lactic Acid (0.7-2.1) mmol/L Calcium 7.6 L (8.6-10.4) mg/dl Phosphorus 5.4 H (2.5-4.5) mg/dL Magnesium 2.0 (1.6-2.3) mg/dL Total Bilirubin (0.2-1.3) mg/dL AST (14-36) U/L ALT (9-52) U/L Alkaline Phosphatase (38-126) U/L Total Creatine Kinase (30-135) U/L CK-MB (Mass) (0.0-3.38) ng/mL Troponin I (0.00-0.120) ng/mL Total Protein (6.3-8.3) g/dL Albumin (3.5-5.0) g/dL Globulin (2.2-3.9) gm/dL Albumin/Globulin Ratio (1.0-2.1) Arterial Blood Potassium (3.6-5.2) mmol/L Urine Color (YELLOW) Urine Clarity (Clear) Urine pH (5.0-8.0) Ur Specific [place] (1.003-1.030) Urine Protein (NEGATIVE) mg/dL Urine Glucose (UA) (Normal) mg/dL Urine Ketones (NEGATIVE) mg/dL Urine Blood (NEGATIVE) Urine Nitrate (NEGATIVE) Urine Bilirubin (NEGATIVE) Urine Urobilinogen (0.2-1.0) mg/dL Ur Leukocyte Esterase (Negative) [place]/uL Urine WBC (Auto) (0-5) /hpf Urine RBC (Auto) (0-3) /hpf Urine Bacteria (<OCC) Urine Opiates Screen (NEGATIVE) Urine Methadone Screen (NEGATIVE) Ur Barbiturates Screen (NEGATIVE) Ur Phencyclidine Scrn (NEGATIVE) Ur Amphetamines Screen (NEGATIVE) U Benzodiazepines Scrn (NEGATIVE) U Oth Cocaine Metabols (NEGATIVE) U Cannabinoids Screen (NEGATIVE) 09/16/18 09/16/18 09/16/18 Range/Units 22:20 21:25 21:01 WBC (4.8-10.8) K/uL RBC (3.80-5.20) Mil/uL Hgb (11.0-16.0) g/dL Hct (34.0-47.0) % MCV (81.0-99.0) fL MCH (27.0-31.0) pg MCHC (33.0-37.0) g/dL RDW (11.5-14.5) % Plt Count (130-400) K/uL MPV (7.2-11.7) fL Neut % (Auto) (50.0-75.0) % Lymph % (Auto) (20.0-40.0) % [place] % (Auto) (0.0-10.0) % Eos % (Auto) (0.0-4.0) % Baso % (Auto) (0.0-2.0) % Neut # (Auto) (1.8-7.0) K/uL Lymph # (Auto) (1.0-4.3) K/uL [place] # (Auto) (0.0-0.8) K/uL Eos # (Auto) (0.0-0.7) K/uL Baso # (Auto) (0.0-0.2) K/uL Neutrophils % (Manual) (50-75) % Band Neutrophils % (0-2) % Lymphocytes % (Manual) (20-40) % Monocytes % (Manual) (0-10) % Platelet Estimate (NORMAL) Hypochromasia (manual) Poikilocytosis (manual Anisocytosis (manual) Bravo Cells PT (9.7-12.2) SECONDS INR APTT (21-34) SECONDS Puncture Site Lba pCO2 35 (35-45) mm/Hg pO2 143 H (80-100) mm/Hg HCO3 16.9 L (21-28) mmol/L ABG pH 7.26 L (7.35-7.45) ABG Total CO2 16.8 L (22-28) mmol/L ABG O2 Saturation 98.5 H (95-98) % ABG Base Excess -10.4 L (-2.0-3.0) mmol/L Bebo Test Na ABG Potassium 2.6 L (3.6-5.2) mmol/L A-a O2 Difference 526.0 mm/Hg Respiratory Index 3.7 Sodium 128.0 L (132-148) mmol/l Chloride 94.0 L (98-107) mmol/L Glucose 335 H (65-105) mg/dl Lactate 7.4 H* (0.7-2.1) mmol/L Vent Mode Prvc Mechanical Rate 20 FiO2 100.0 % Tidal Volume 450 PEEP 5 Crit Value Called To Ashleigh agricultural commodities inspector Crit Value Called By Levar Crit Value Read Back Y Blood Gas Notified Time 2104 Potassium (3.6-5.2) mmol/L Carbon Dioxide (22-30) mmol/L Anion Gap (10-20) BUN (7-17) mg/dL Creatinine (0.7-1.2) mg/dL Est GFR ( Amer) Est GFR (Non-Af Amer) POC Glucose (mg/dL) 366 H 312 H (65-110) mg/dL Random Glucose (65-105) mg/dL Lactic Acid (0.7-2.1) mmol/L Calcium (8.6-10.4) mg/dl Phosphorus (2.5-4.5) mg/dL Magnesium (1.6-2.3) mg/dL Total Bilirubin (0.2-1.3) mg/dL AST (14-36) U/L ALT (9-52) U/L Alkaline Phosphatase (38-126) U/L Total Creatine Kinase (30-135) U/L CK-MB (Mass) (0.0-3.38) ng/mL Troponin I (0.00-0.120) ng/mL Total Protein (6.3-8.3) g/dL Albumin (3.5-5.0) g/dL Globulin (2.2-3.9) gm/dL Albumin/Globulin Ratio (1.0-2.1) Arterial Blood Potassium 2.6 L (3.6-5.2) mmol/L Urine Color (YELLOW) Urine Clarity (Clear) Urine pH (5.0-8.0) Ur Specific [place] (1.003-1.030) Urine Protein (NEGATIVE) mg/dL Urine Glucose (UA) (Normal) mg/dL Urine Ketones (NEGATIVE) mg/dL Urine Blood (NEGATIVE) Urine Nitrate (NEGATIVE) Urine Bilirubin (NEGATIVE) Urine Urobilinogen (0.2-1.0) mg/dL Ur Leukocyte Esterase (Negative) Shawna/uL Urine WBC (Auto) (0-5) /hpf Urine RBC (Auto) (0-3) /hpf Urine Bacteria (<OCC) Urine Opiates Screen (NEGATIVE) Urine Methadone Screen (NEGATIVE) Ur Barbiturates Screen (NEGATIVE) Ur Phencyclidine Scrn (NEGATIVE) Ur Amphetamines Screen (NEGATIVE) U Benzodiazepines Scrn (NEGATIVE) U Oth Cocaine Metabols (NEGATIVE) U Cannabinoids Screen (NEGATIVE) 09/16/18 09/16/18 09/16/18 Range/Units 20:12 18:53 17:56 WBC (4.8-10.8) K/uL RBC (3.80-5.20) Mil/uL Hgb (11.0-16.0) g/dL Hct (34.0-47.0) % MCV (81.0-99.0) fL MCH (27.0-31.0) pg MCHC (33.0-37.0) g/dL RDW (11.5-14.5) % Plt Count (130-400) K/uL MPV (7.2-11.7) fL Neut % (Auto) (50.0-75.0) % Lymph % (Auto) (20.0-40.0) % [place] % (Auto) (0.0-10.0) % Eos % (Auto) (0.0-4.0) % Baso % (Auto) (0.0-2.0) % Neut # (Auto) (1.8-7.0) K/uL Lymph # (Auto) (1.0-4.3) K/uL [place] # (Auto) (0.0-0.8) K/uL Eos # (Auto) (0.0-0.7) K/uL Baso # (Auto) (0.0-0.2) K/uL Neutrophils % (Manual) (50-75) % Band Neutrophils % (0-2) % Lymphocytes % (Manual) (20-40) % Monocytes % (Manual) (0-10) % Platelet Estimate (NORMAL) Hypochromasia (manual) Poikilocytosis (manual Anisocytosis (manual) [place] Cells PT (9.7-12.2) SECONDS INR APTT (21-34) SECONDS Puncture Site pCO2 (35-45) mm/Hg pO2 (80-100) mm/Hg HCO3 (21-28) mmol/L ABG pH (7.35-7.45) ABG Total CO2 (22-28) mmol/L ABG O2 Saturation (95-98) % ABG Base Excess (-2.0-3.0) mmol/L Bebo Test ABG Potassium (3.6-5.2) mmol/L A-a O2 Difference mm/Hg Respiratory Index Sodium (132-148) mmol/l Chloride (98-107) mmol/L Glucose (65-105) mg/dl Lactate (0.7-2.1) mmol/L Vent Mode Mechanical Rate FiO2 % Tidal Volume PEEP Crit Value Called To Crit Value Called By Crit Value Read Back Blood Gas Notified Time Potassium (3.6-5.2) mmol/L Carbon Dioxide (22-30) mmol/L Anion Gap (10-20) BUN (7-17) mg/dL Creatinine (0.7-1.2) mg/dL Est GFR ( Amer) Est GFR (Non-Af Amer) POC Glucose (mg/dL) 306 H 306 H 294 H (65-110) mg/dL Random Glucose (65-105) mg/dL Lactic Acid (0.7-2.1) mmol/L Calcium (8.6-10.4) mg/dl Phosphorus (2.5-4.5) mg/dL Magnesium (1.6-2.3) mg/dL Total Bilirubin (0.2-1.3) mg/dL AST (14-36) U/L ALT (9-52) U/L Alkaline Phosphatase (38-126) U/L Total Creatine Kinase (30-135) U/L CK-MB (Mass) (0.0-3.38) ng/mL Troponin I (0.00-0.120) ng/mL Total Protein (6.3-8.3) g/dL Albumin (3.5-5.0) g/dL Globulin (2.2-3.9) gm/dL Albumin/Globulin Ratio (1.0-2.1) Arterial Blood Potassium (3.6-5.2) mmol/L Urine Color (YELLOW) Urine Clarity (Clear) Urine pH (5.0-8.0) Ur Specific [place] (1.003-1.030) Urine Protein (NEGATIVE) mg/dL Urine Glucose (UA) (Normal) mg/dL Urine Ketones (NEGATIVE) mg/dL Urine Blood (NEGATIVE) Urine Nitrate (NEGATIVE) Urine Bilirubin (NEGATIVE) Urine Urobilinogen (0.2-1.0) mg/dL Ur Leukocyte Esterase (Negative) Shawna/uL Urine WBC (Auto) (0-5) /hpf Urine RBC (Auto) (0-3) /hpf Urine Bacteria (<OCC) Urine Opiates Screen (NEGATIVE) Urine Methadone Screen (NEGATIVE) Ur Barbiturates Screen (NEGATIVE) Ur Phencyclidine Scrn (NEGATIVE) Ur Amphetamines Screen (NEGATIVE) U Benzodiazepines Scrn (NEGATIVE) U Oth Cocaine Metabols (NEGATIVE) U Cannabinoids Screen (NEGATIVE) 09/16/18 09/16/18 09/16/18 Range/Units 17:29 17:16 16:17 WBC (4.8-10.8) K/uL RBC (3.80-5.20) Mil/uL Hgb (11.0-16.0) g/dL Hct (34.0-47.0) % MCV (81.0-99.0) fL MCH (27.0-31.0) pg MCHC (33.0-37.0) g/dL RDW (11.5-14.5) % Plt Count (130-400) K/uL MPV (7.2-11.7) fL Neut % (Auto) (50.0-75.0) % Lymph % (Auto) (20.0-40.0) % [place] % (Auto) (0.0-10.0) % Eos % (Auto) (0.0-4.0) % Baso % (Auto) (0.0-2.0) % Neut # (Auto) (1.8-7.0) K/uL Lymph # (Auto) (1.0-4.3) K/uL [place] # (Auto) (0.0-0.8) K/uL Eos # (Auto) (0.0-0.7) K/uL Baso # (Auto) (0.0-0.2) K/uL Neutrophils % (Manual) (50-75) % Band Neutrophils % (0-2) % Lymphocytes % (Manual) (20-40) % Monocytes % (Manual) (0-10) % Platelet Estimate (NORMAL) Hypochromasia (manual) Poikilocytosis (manual Anisocytosis (manual) [place] Cells PT 18.0 H (9.7-12.2) SECONDS INR 1.6 APTT 36 H D (21-34) SECONDS Puncture Site pCO2 (35-45) mm/Hg pO2 (80-100) mm/Hg HCO3 (21-28) mmol/L ABG pH (7.35-7.45) ABG Total CO2 (22-28) mmol/L ABG O2 Saturation (95-98) % ABG Base Excess (-2.0-3.0) mmol/L Bebo Test ABG Potassium (3.6-5.2) mmol/L A-a O2 Difference mm/Hg Respiratory Index Sodium (132-148) mmol/l Chloride (98-107) mmol/L Glucose (65-105) mg/dl Lactate (0.7-2.1) mmol/L Vent Mode Mechanical Rate FiO2 % Tidal Volume PEEP Crit Value Called To Crit Value Called By Crit Value Read Back Blood Gas Notified Time Potassium (3.6-5.2) mmol/L Carbon Dioxide (22-30) mmol/L Anion Gap (10-20) BUN (7-17) mg/dL Creatinine (0.7-1.2) mg/dL Est GFR ( Amer) Est GFR (Non-Af Amer) POC Glucose (mg/dL) 293 H (65-110) mg/dL Random Glucose (65-105) mg/dL Lactic Acid (0.7-2.1) mmol/L Calcium (8.6-10.4) mg/dl Phosphorus (2.5-4.5) mg/dL Magnesium (1.6-2.3) mg/dL Total Bilirubin (0.2-1.3) mg/dL AST (14-36) U/L ALT (9-52) U/L Alkaline Phosphatase (38-126) U/L Total Creatine Kinase (30-135) U/L CK-MB (Mass) (0.0-3.38) ng/mL Troponin I (0.00-0.120) ng/mL Total Protein (6.3-8.3) g/dL Albumin (3.5-5.0) g/dL Globulin (2.2-3.9) gm/dL Albumin/Globulin Ratio (1.0-2.1) Arterial Blood Potassium (3.6-5.2) mmol/L Urine Color [place] (YELLOW) Urine Clarity Hazy (Clear) Urine pH 6.0 (5.0-8.0) Ur Specific [place] 1.011 (1.003-1.030) Urine Protein 2+ H (NEGATIVE) mg/dL Urine Glucose (UA) Normal (Normal) mg/dL Urine Ketones Negative (NEGATIVE) mg/dL Urine Blood 3+ H (NEGATIVE) Urine Nitrate Positive H (NEGATIVE) Urine Bilirubin Negative (NEGATIVE) Urine Urobilinogen 4.0 H (0.2-1.0) mg/dL Ur Leukocyte Esterase Trace H (Negative) Shawna/uL Urine WBC (Auto) 11 H (0-5) /hpf Urine RBC (Auto) 589 H (0-3) /hpf Urine Bacteria Occ H (<OCC) Urine Opiates Screen (NEGATIVE) Urine Methadone Screen (NEGATIVE) Ur Barbiturates Screen (NEGATIVE) Ur Phencyclidine Scrn (NEGATIVE) Ur Amphetamines Screen (NEGATIVE) U Benzodiazepines Scrn (NEGATIVE) U Oth Cocaine Metabols (NEGATIVE) U Cannabinoids Screen (NEGATIVE) 09/16/18 09/16/18 09/16/18 Range/Units 16:17 16:17 15:48 WBC 20.2 H (4.8-10.8) K/uL RBC 4.25 (3.80-5.20) Mil/uL Hgb 12.7 D (11.0-16.0) g/dL Hct 38.6 (34.0-47.0) % MCV 90.8 (81.0-99.0) fL MCH 29.8 (27.0-31.0) pg MCHC 32.9 L (33.0-37.0) g/dL RDW 12.8 (11.5-14.5) % Plt Count 287 (130-400) K/uL MPV 7.7 (7.2-11.7) fL Neut % (Auto) 94.2 H (50.0-75.0) % Lymph % (Auto) 1.6 L (20.0-40.0) % [place] % (Auto) 4.1 (0.0-10.0) % Eos % (Auto) 0.0 (0.0-4.0) % Baso % (Auto) 0.1 (0.0-2.0) % Neut # (Auto) 19.0 H (1.8-7.0) K/uL Lymph # (Auto) 0.3 L (1.0-4.3) K/uL [place] # (Auto) 0.8 (0.0-0.8) K/uL Eos # (Auto) 0.0 (0.0-0.7) K/uL Baso # (Auto) 0.0 (0.0-0.2) K/uL Neutrophils % (Manual) 74 (50-75) % Band Neutrophils % 20 H* (0-2) % Lymphocytes % (Manual) 3 L (20-40) % Monocytes % (Manual) 3 (0-10) % Platelet Estimate Normal (NORMAL) Hypochromasia (manual) Slight Poikilocytosis (manual Slight Anisocytosis (manual) Slight [place] Cells Slight PT (9.7-12.2) SECONDS INR APTT (21-34) SECONDS Puncture Site Lba pCO2 44 (35-45) mm/Hg pO2 126 H (80-100) mm/Hg HCO3 18.5 L (21-28) mmol/L ABG pH 7.24 L (7.35-7.45) ABG Total CO2 20.3 L (22-28) mmol/L ABG O2 Saturation 98.3 H (95-98) % ABG Base Excess -8.3 L (-2.0-3.0) mmol/L Bebo Test Na ABG Potassium 2.4 L* (3.6-5.2) mmol/L A-a O2 Difference 532.0 mm/Hg Respiratory Index 4.2 Sodium 129 L 132.0 (132-148) mmol/l Chloride 89 L 96.0 L (98-107) mmol/L Glucose 275 H (65-105) mg/dl Lactate 7.1 H* (0.7-2.1) mmol/L Vent Mode Prvc Mechanical Rate 20 FiO2 100.0 % Tidal Volume 450 PEEP 5 Crit Value Called To Damir cornelius Crit Value Called By Levar Crit Value Read Back Y Blood Gas Notified Time 1551 Potassium 2.9 L (3.6-5.2) mmol/L Carbon Dioxide 25 (22-30) mmol/L Anion Gap 18 (10-20) BUN 30 H (7-17) mg/dL Creatinine 2.2 H (0.7-1.2) mg/dL Est GFR ( Amer) 26 Est GFR (Non-Af Amer) 21 POC Glucose (mg/dL) (65-110) mg/dL Random Glucose 263 H D (65-105) mg/dL Lactic Acid (0.7-2.1) mmol/L Calcium 7.7 L (8.6-10.4) mg/dl Phosphorus 6.8 H (2.5-4.5) mg/dL Magnesium 2.0 (1.6-2.3) mg/dL Total Bilirubin 1.4 H (0.2-1.3) mg/dL AST 726 H D (14-36) U/L ALT 495 H D (9-52) U/L Alkaline Phosphatase 166 H D (38-126) U/L Total Creatine Kinase 121 (30-135) U/L CK-MB (Mass) 8.51 H (0.0-3.38) ng/mL Troponin I 3.7500 H* (0.00-0.120) ng/mL Total Protein 5.5 L (6.3-8.3) g/dL Albumin 2.9 L D (3.5-5.0) g/dL Globulin 2.6 (2.2-3.9) gm/dL Albumin/Globulin Ratio 1.1 (1.0-2.1) Arterial Blood Potassium 2.4 L* (3.6-5.2) mmol/L Urine Color (YELLOW) Urine Clarity (Clear) Urine pH (5.0-8.0) Ur Specific [place] (1.003-1.030) Urine Protein (NEGATIVE) mg/dL Urine Glucose (UA) (Normal) mg/dL Urine Ketones (NEGATIVE) mg/dL Urine Blood (NEGATIVE) Urine Nitrate (NEGATIVE) Urine Bilirubin (NEGATIVE) Urine Urobilinogen (0.2-1.0) mg/dL Ur Leukocyte Esterase (Negative) Shawna/uL Urine WBC (Auto) (0-5) /hpf Urine RBC (Auto) (0-3) /hpf Urine Bacteria (<OCC) Urine Opiates Screen (NEGATIVE) Urine Methadone Screen (NEGATIVE) Ur Barbiturates Screen (NEGATIVE) Ur Phencyclidine Scrn (NEGATIVE) Ur Amphetamines Screen (NEGATIVE) U Benzodiazepines Scrn (NEGATIVE) U Oth Cocaine Metabols (NEGATIVE) U Cannabinoids Screen (NEGATIVE) 09/16/18 09/16/18 Range/Units 12:57 12:41 WBC (4.8-10.8) K/uL RBC (3.80-5.20) Mil/uL Hgb (11.0-16.0) g/dL Hct (34.0-47.0) % MCV (81.0-99.0) fL MCH (27.0-31.0) pg MCHC (33.0-37.0) g/dL RDW (11.5-14.5) % Plt Count (130-400) K/uL MPV (7.2-11.7) fL Neut % (Auto) (50.0-75.0) % Lymph % (Auto) (20.0-40.0) % [place] % (Auto) (0.0-10.0) % Eos % (Auto) (0.0-4.0) % Baso % (Auto) (0.0-2.0) % Neut # (Auto) (1.8-7.0) K/uL Lymph # (Auto) (1.0-4.3) K/uL [place] # (Auto) (0.0-0.8) K/uL Eos # (Auto) (0.0-0.7) K/uL Baso # (Auto) (0.0-0.2) K/uL Neutrophils % (Manual) (50-75) % Band Neutrophils % (0-2) % Lymphocytes % (Manual) (20-40) % Monocytes % (Manual) (0-10) % Platelet Estimate (NORMAL) Hypochromasia (manual) Poikilocytosis (manual Anisocytosis (manual) Bravo Cells PT (9.7-12.2) SECONDS INR APTT (21-34) SECONDS Puncture Site pCO2 (35-45) mm/Hg pO2 (80-100) mm/Hg HCO3 (21-28) mmol/L ABG pH (7.35-7.45) ABG Total CO2 (22-28) mmol/L ABG O2 Saturation (95-98) % ABG Base Excess (-2.0-3.0) mmol/L Bebo Test ABG Potassium (3.6-5.2) mmol/L A-a O2 Difference mm/Hg Respiratory Index Sodium (132-148) mmol/l Chloride (98-107) mmol/L Glucose (65-105) mg/dl Lactate (0.7-2.1) mmol/L Vent Mode Mechanical Rate FiO2 % Tidal Volume PEEP Crit Value Called To Crit Value Called By Crit Value Read Back Blood Gas Notified Time Potassium (3.6-5.2) mmol/L Carbon Dioxide (22-30) mmol/L Anion Gap (10-20) BUN (7-17) mg/dL Creatinine (0.7-1.2) mg/dL Est GFR ( Amer) Est GFR (Non-Af Amer) POC Glucose (mg/dL) 295 H (65-110) mg/dL Random Glucose (65-105) mg/dL Lactic Acid (0.7-2.1) mmol/L Calcium (8.6-10.4) mg/dl Phosphorus (2.5-4.5) mg/dL Magnesium (1.6-2.3) mg/dL Total Bilirubin (0.2-1.3) mg/dL AST (14-36) U/L ALT (9-52) U/L Alkaline Phosphatase (38-126) U/L Total Creatine Kinase 81 (30-135) U/L CK-MB (Mass) 5.17 H (0.0-3.38) ng/mL Troponin I 2.5700 H* (0.00-0.120) ng/mL Total Protein (6.3-8.3) g/dL Albumin (3.5-5.0) g/dL Globulin (2.2-3.9) gm/dL Albumin/Globulin Ratio (1.0-2.1) Arterial Blood Potassium (3.6-5.2) mmol/L Urine Color (YELLOW) Urine Clarity (Clear) Urine pH (5.0-8.0) Ur Specific [place] (1.003-1.030) Urine Protein (NEGATIVE) mg/dL Urine Glucose (UA) (Normal) mg/dL Urine Ketones (NEGATIVE) mg/dL Urine Blood (NEGATIVE) Urine Nitrate (NEGATIVE) Urine Bilirubin (NEGATIVE) Urine Urobilinogen (0.2-1.0) mg/dL Ur Leukocyte Esterase (Negative) Shawna/uL Urine WBC (Auto) (0-5) /hpf Urine RBC (Auto) (0-3) /hpf Urine Bacteria (<OCC) Urine Opiates Screen (NEGATIVE) Urine Methadone Screen (NEGATIVE) Ur Barbiturates Screen (NEGATIVE) Ur Phencyclidine Scrn (NEGATIVE) Ur Amphetamines Screen (NEGATIVE) U Benzodiazepines Scrn (NEGATIVE) U Oth Cocaine Metabols (NEGATIVE) U Cannabinoids Screen (NEGATIVE) Laboratory Results - last 24 hr 09/16/18 09/16/18 09/16/18 12:41 12:57 15:48 WBC RBC Hgb Hct MCV MCH MCHC RDW Plt Count MPV Neut % (Auto) Lymph % (Auto) [place] % (Auto) Eos % (Auto) Baso % (Auto) Neut # (Auto) Lymph # (Auto) [place] # (Auto) Eos # (Auto) Baso # (Auto) Neutrophils % (Manual) Band Neutrophils % Lymphocytes % (Manual) Monocytes % (Manual) Platelet Estimate Hypochromasia (manual) Poikilocytosis (manual Anisocytosis (manual) [place] Cells PT INR APTT Puncture Site Lba pCO2 44 pO2 126 H HCO3 18.5 L ABG pH 7.24 L ABG Total CO2 20.3 L ABG O2 Saturation 98.3 H ABG Base Excess -8.3 L Bebo Test Na ABG Potassium 2.4 L* A-a O2 Difference 532.0 Respiratory Index 4.2 Sodium 132.0 Chloride 96.0 L Glucose 275 H Lactate 7.1 H* Vent Mode Prvc Mechanical Rate 20 FiO2 100.0 Tidal Volume 450 PEEP 5 Crit Value Called To Damir cornelius Crit Value Called By Levar Crit Value Read Back Y Blood Gas Notified Time 1551 Potassium Carbon Dioxide Anion Gap BUN Creatinine Est GFR ( Amer) Est GFR (Non-Af Amer) POC Glucose (mg/dL) 295 H Random Glucose Lactic Acid Calcium Phosphorus Magnesium Total Bilirubin AST ALT Alkaline Phosphatase Total Creatine Kinase 81 CK-MB (Mass) 5.17 H Troponin I 2.5700 H* Total Protein Albumin Globulin Albumin/Globulin Ratio Arterial Blood Potassium 2.4 L* Urine Color Urine Clarity Urine pH Ur Specific [place] Urine Protein Urine Glucose (UA) Urine Ketones Urine Blood Urine Nitrate Urine Bilirubin Urine Urobilinogen Ur Leukocyte Esterase Urine WBC (Auto) Urine RBC (Auto) Urine Bacteria Urine Opiates Screen Urine Methadone Screen Ur Barbiturates Screen Ur Phencyclidine Scrn Ur Amphetamines Screen U Benzodiazepines Scrn U Oth Cocaine Metabols U Cannabinoids Screen 09/16/18 09/16/18 09/16/18 16:17 16:17 16:17 WBC 20.2 H RBC 4.25 Hgb 12.7 D Hct 38.6 MCV 90.8 MCH 29.8 MCHC 32.9 L RDW 12.8 Plt Count 287 MPV 7.7 Neut % (Auto) 94.2 H Lymph % (Auto) 1.6 L [place] % (Auto) 4.1 Eos % (Auto) 0.0 Baso % (Auto) 0.1 Neut # (Auto) 19.0 H Lymph # (Auto) 0.3 L [place] # (Auto) 0.8 Eos # (Auto) 0.0 Baso # (Auto) 0.0 Neutrophils % (Manual) 74 Band Neutrophils % 20 H* Lymphocytes % (Manual) 3 L Monocytes % (Manual) 3 Platelet Estimate Normal Hypochromasia (manual) Slight Poikilocytosis (manual Slight Anisocytosis (manual) Slight [place] Cells Slight PT 18.0 H INR 1.6 APTT 36 H D Puncture Site pCO2 pO2 HCO3 ABG pH ABG Total CO2 ABG O2 Saturation ABG Base Excess Bebo Test ABG Potassium A-a O2 Difference Respiratory Index Sodium 129 L Chloride 89 L Glucose Lactate Vent Mode Mechanical Rate FiO2 Tidal Volume PEEP Crit Value Called To Crit Value Called By Crit Value Read Back Blood Gas Notified Time Potassium 2.9 L Carbon Dioxide 25 Anion Gap 18 BUN 30 H Creatinine 2.2 H Est GFR ( Amer) 26 Est GFR (Non-Af Amer) 21 POC Glucose (mg/dL) Random Glucose 263 H D Lactic Acid Calcium 7.7 L Phosphorus 6.8 H Magnesium 2.0 Total Bilirubin 1.4 H AST 726 H D ALT 495 H D Alkaline Phosphatase 166 H D Total Creatine Kinase 121 CK-MB (Mass) 8.51 H Troponin I 3.7500 H* Total Protein 5.5 L Albumin 2.9 L D Globulin 2.6 Albumin/Globulin Ratio 1.1 Arterial Blood Potassium Urine Color Urine Clarity Urine pH Ur Specific [place] Urine Protein Urine Glucose (UA) Urine Ketones Urine Blood Urine Nitrate Urine Bilirubin Urine Urobilinogen Ur Leukocyte Esterase Urine WBC (Auto) Urine RBC (Auto) Urine Bacteria Urine Opiates Screen Urine Methadone Screen Ur Barbiturates Screen Ur Phencyclidine Scrn Ur Amphetamines Screen U Benzodiazepines Scrn U Oth Cocaine Metabols U Cannabinoids Screen 09/16/18 09/16/18 09/16/18 17:16 17:29 17:56 WBC RBC Hgb Hct MCV MCH MCHC RDW Plt Count MPV Neut % (Auto) Lymph % (Auto) [place] % (Auto) Eos % (Auto) Baso % (Auto) Neut # (Auto) Lymph # (Auto) [place] # (Auto) Eos # (Auto) Baso # (Auto) Neutrophils % (Manual) Band Neutrophils % Lymphocytes % (Manual) Monocytes % (Manual) Platelet Estimate Hypochromasia (manual) Poikilocytosis (manual Anisocytosis (manual) [place]ravo Cells PT INR APTT Puncture Site pCO2 pO2 HCO3 ABG pH ABG Total CO2 ABG O2 Saturation ABG Base Excess Bebo Test ABG Potassium A-a O2 Difference Respiratory Index Sodium Chloride Glucose Lactate Vent Mode Mechanical Rate FiO2 Tidal Volume PEEP Crit Value Called To Crit Value Called By Crit Value Read Back Blood Gas Notified Time Potassium Carbon Dioxide Anion Gap BUN Creatinine Est GFR ( Amer) Est GFR (Non-Af Amer) POC Glucose (mg/dL) 293 H 294 H Random Glucose Lactic Acid Calcium Phosphorus Magnesium Total Bilirubin AST ALT Alkaline Phosphatase Total Creatine Kinase CK-MB (Mass) Troponin I Total Protein Albumin Globulin Albumin/Globulin Ratio Arterial Blood Potassium Urine Color [place] Urine Clarity Hazy Urine pH 6.0 Ur Specific [place] 1.011 Urine Protein 2+ H Urine Glucose (UA) Normal Urine Ketones Negative Urine Blood 3+ H Urine Nitrate Positive H Urine Bilirubin Negative Urine Urobilinogen 4.0 H Ur Leukocyte Esterase Trace H Urine WBC (Auto) 11 H Urine RBC (Auto) 589 H Urine Bacteria Occ H Urine Opiates Screen Urine Methadone Screen Ur Barbiturates Screen Ur Phencyclidine Scrn Ur Amphetamines Screen U Benzodiazepines Scrn U Oth Cocaine Metabols U Cannabinoids Screen 09/16/18 09/16/18 09/16/18 18:53 20:12 21:01 WBC RBC Hgb Hct MCV MCH MCHC RDW Plt Count MPV Neut % (Auto) Lymph % (Auto) [place] % (Auto) Eos % (Auto) Baso % (Auto) Neut # (Auto) Lymph # (Auto) [place] # (Auto) Eos # (Auto) Baso # (Auto) Neutrophils % (Manual) Band Neutrophils % Lymphocytes % (Manual) Monocytes % (Manual) Platelet Estimate Hypochromasia (manual) Poikilocytosis (manual Anisocytosis (manual) [place] Cells PT INR APTT Puncture Site Lba pCO2 35 pO2 143 H HCO3 16.9 L ABG pH 7.26 L ABG Total CO2 16.8 L ABG O2 Saturation 98.5 H ABG Base Excess -10.4 L [place] Test Na ABG Potassium 2.6 L A-a O2 Difference 526.0 Respiratory Index 3.7 Sodium 128.0 L Chloride 94.0 L Glucose 335 H Lactate 7.4 H* Vent Mode Prvc Mechanical Rate 20 FiO2 100.0 Tidal Volume 450 PEEP 5 Crit Value Called To [facility] agricultural commodities inspector Crit Value Called By Levar Crit Value Read Back Y Blood Gas Notified Time 2104 Potassium Carbon Dioxide Anion Gap BUN Creatinine Est GFR ( Amer) Est GFR (Non-Af Amer) POC Glucose (mg/dL) 306 H 306 H Random Glucose Lactic Acid Calcium Phosphorus Magnesium Total Bilirubin AST ALT Alkaline Phosphatase Total Creatine Kinase CK-MB (Mass) Troponin I Total Protein Albumin Globulin Albumin/Globulin Ratio Arterial Blood Potassium 2.6 L Urine Color Urine Clarity Urine pH Ur Specific [place] Urine Protein Urine Glucose (UA) Urine Ketones Urine Blood Urine Nitrate Urine Bilirubin Urine Urobilinogen Ur Leukocyte Esterase Urine WBC (Auto) Urine RBC (Auto) Urine Bacteria Urine Opiates Screen Urine Methadone Screen Ur Barbiturates Screen Ur Phencyclidine Scrn Ur Amphetamines Screen U Benzodiazepines Scrn U Oth Cocaine Metabols U Cannabinoids Screen 09/16/18 09/16/18 09/16/18 21:25 22:20 22:25 WBC 18.5 H RBC 4.16 Hgb 12.4 Hct 37.6 MCV 90.3 MCH 29.9 MCHC 33.1 RDW 12.8 Plt Count 188 MPV 7.6 Neut % (Auto) 96.3 H Lymph % (Auto) 2.0 L [place] % (Auto) 1.3 Eos % (Auto) 0.1 Baso % (Auto) 0.3 Neut # (Auto) 17.9 H Lymph # (Auto) 0.4 L [place] # (Auto) 0.2 Eos # (Auto) 0.0 Baso # (Auto) 0.1 Neutrophils % (Manual) 74 Band Neutrophils % 21 H* Lymphocytes % (Manual) 4 L Monocytes % (Manual) 1 Platelet Estimate Normal Hypochromasia (manual) Poikilocytosis (manual Slight Anisocytosis (manual) Slight [place] Cells Moderate PT INR APTT Puncture Site pCO2 pO2 HCO3 ABG pH ABG Total CO2 ABG O2 Saturation ABG Base Excess [place] Test ABG Potassium A-a O2 Difference Respiratory Index Sodium Chloride Glucose Lactate Vent Mode Mechanical Rate FiO2 Tidal Volume PEEP Crit Value Called To Crit Value Called By Crit Value Read Back Blood Gas Notified Time Potassium Carbon Dioxide Anion Gap BUN Creatinine Est GFR ( Amer) Est GFR (Non-Af Amer) POC Glucose (mg/dL) 312 H 366 H Random Glucose Lactic Acid Calcium Phosphorus Magnesium Total Bilirubin AST ALT Alkaline Phosphatase Total Creatine Kinase CK-MB (Mass) Troponin I Total Protein Albumin Globulin Albumin/Globulin Ratio Arterial Blood Potassium Urine Color Urine Clarity Urine pH Ur Specific [place] Urine Protein Urine Glucose (UA) Urine Ketones Urine Blood Urine Nitrate Urine Bilirubin Urine Urobilinogen Ur Leukocyte Esterase Urine WBC (Auto) Urine RBC (Auto) Urine Bacteria Urine Opiates Screen Urine Methadone Screen Ur Barbiturates Screen Ur Phencyclidine Scrn Ur Amphetamines Screen U Benzodiazepines Scrn U Oth Cocaine Metabols U Cannabinoids Screen 09/16/18 09/16/18 09/16/18 22:25 22:25 23:26 WBC RBC Hgb Hct MCV MCH MCHC RDW Plt Count MPV Neut % (Auto) Lymph % (Auto) [place] % (Auto) Eos % (Auto) Baso % (Auto) Neut # (Auto) Lymph # (Auto) [place] # (Auto) Eos # (Auto) Baso # (Auto) Neutrophils % (Manual) Band Neutrophils % Lymphocytes % (Manual) Monocytes % (Manual) Platelet Estimate Hypochromasia (manual) Poikilocytosis (manual Anisocytosis (manual) [place] Cells PT 18.3 H INR 1.7 APTT 43 H D Puncture Site pCO2 pO2 HCO3 ABG pH ABG Total CO2 ABG O2 Saturation ABG Base Excess [place] Test ABG Potassium A-a O2 Difference Respiratory Index Sodium 126 L Chloride 89 L Glucose Lactate Vent Mode Mechanical Rate FiO2 Tidal Volume PEEP Crit Value Called To Crit Value Called By Crit Value Read Back Blood Gas Notified Time Potassium 2.8 L Carbon Dioxide 19 L Anion Gap 20 BUN 32 H Creatinine 2.2 H Est GFR ( Amer) 26 Est GFR (Non-Af Amer) 21 POC Glucose (mg/dL) 361 H Random Glucose 327 H D Lactic Acid Calcium 7.6 L Phosphorus 5.4 H Magnesium 2.0 Total Bilirubin AST ALT Alkaline Phosphatase Total Creatine Kinase CK-MB (Mass) Troponin I Total Protein Albumin Globulin Albumin/Globulin Ratio Arterial Blood Potassium Urine Color Urine Clarity Urine pH Ur Specific [place] Urine Protein Urine Glucose (UA) Urine Ketones Urine Blood Urine Nitrate Urine Bilirubin Urine Urobilinogen Ur Leukocyte Esterase Urine WBC (Auto) Urine RBC (Auto) Urine Bacteria Urine Opiates Screen Urine Methadone Screen Ur Barbiturates Screen Ur Phencyclidine Scrn Ur Amphetamines Screen U Benzodiazepines Scrn U Oth Cocaine Metabols U Cannabinoids Screen 09/17/18 09/17/18 09/17/18 00:09 01:45 02:44 WBC RBC Hgb Hct MCV MCH MCHC RDW Plt Count MPV Neut % (Auto) Lymph % (Auto) [place] % (Auto) Eos % (Auto) Baso % (Auto) Neut # (Auto) Lymph # (Auto) [place] # (Auto) Eos # (Auto) Baso # (Auto) Neutrophils % (Manual) Band Neutrophils % Lymphocytes % (Manual) Monocytes % (Manual) Platelet Estimate Hypochromasia (manual) Poikilocytosis (manual Anisocytosis (manual) [place] Cells PT INR APTT Puncture Site pCO2 pO2 HCO3 ABG pH ABG Total CO2 ABG O2 Saturation ABG Base Excess [place] Test ABG Potassium A-a O2 Difference Respiratory Index Sodium Chloride Glucose Lactate Vent Mode Mechanical Rate FiO2 Tidal Volume PEEP Crit Value Called To Crit Value Called By Crit Value Read Back Blood Gas Notified Time Potassium Carbon Dioxide Anion Gap BUN Creatinine Est GFR ( Amer) Est GFR (Non-Af Amer) POC Glucose (mg/dL) 324 H 356 H 327 H Random Glucose Lactic Acid Calcium Phosphorus Magnesium Total Bilirubin AST ALT Alkaline Phosphatase Total Creatine Kinase CK-MB (Mass) Troponin I Total Protein Albumin Globulin Albumin/Globulin Ratio Arterial Blood Potassium Urine Color Urine Clarity Urine pH Ur Specific [place] Urine Protein Urine Glucose (UA) Urine Ketones Urine Blood Urine Nitrate Urine Bilirubin Urine Urobilinogen Ur Leukocyte Esterase Urine WBC (Auto) Urine RBC (Auto) Urine Bacteria Urine Opiates Screen Urine Methadone Screen Ur Barbiturates Screen Ur Phencyclidine Scrn Ur Amphetamines Screen U Benzodiazepines Scrn U Oth Cocaine Metabols U Cannabinoids Screen 09/17/18 09/17/18 09/17/18 03:21 04:18 05:27 WBC RBC Hgb Hct MCV MCH MCHC RDW Plt Count MPV Neut % (Auto) Lymph % (Auto) [place] % (Auto) Eos % (Auto) Baso % (Auto) Neut # (Auto) Lymph # (Auto) [place] # (Auto) Eos # (Auto) Baso # (Auto) Neutrophils % (Manual) Band Neutrophils % Lymphocytes % (Manual) Monocytes % (Manual) Platelet Estimate Hypochromasia (manual) Poikilocytosis (manual Anisocytosis (manual) [place] Cells PT INR APTT Puncture Site Rr pCO2 48 H pO2 149 H HCO3 16.0 L ABG pH 7.16 L* ABG Total CO2 18.6 L ABG O2 Saturation 98.6 H ABG Base Excess -11.5 L [place] Test Pos ABG Potassium 4.1 A-a O2 Difference 504.0 Respiratory Index 3.4 Sodium 126.0 L Chloride 94.0 L Glucose 239 H Lactate 7.7 H* Vent Mode Prvc Mechanical Rate 20 FiO2 100.0 Tidal Volume 450 PEEP 5 Crit Value Called To Halina rn Crit Value Called By Juan Francisco health sciences manager Crit Value Read Back Y Blood Gas Notified Time 545 Potassium Carbon Dioxide Anion Gap BUN Creatinine Est GFR ( Amer) Est GFR (Non-Af Amer) POC Glucose (mg/dL) 337 H 290 H Random Glucose Lactic Acid Calcium Phosphorus Magnesium Total Bilirubin AST ALT Alkaline Phosphatase Total Creatine Kinase CK-MB (Mass) Troponin I Total Protein Albumin Globulin Albumin/Globulin Ratio Arterial Blood Potassium 4.1 Urine Color Urine Clarity Urine pH Ur Specific [place] Urine Protein Urine Glucose (UA) Urine Ketones Urine Blood Urine Nitrate Urine Bilirubin Urine Urobilinogen Ur Leukocyte Esterase Urine WBC (Auto) Urine RBC (Auto) Urine Bacteria Urine Opiates Screen Urine Methadone Screen Ur Barbiturates Screen Ur Phencyclidine Scrn Ur Amphetamines Screen U Benzodiazepines Scrn U Oth Cocaine Metabols U Cannabinoids Screen 09/17/18 09/17/18 09/17/18 05:35 05:47 05:47 WBC 18.1 H RBC 4.06 Hgb 12.2 Hct 36.9 MCV 90.8 MCH 29.9 MCHC 33.0 RDW 13.0 Plt Count 169 MPV 7.7 Neut % (Auto) 94.3 H Lymph % (Auto) 2.0 L [place] % (Auto) 3.4 Eos % (Auto) 0.1 Baso % (Auto) 0.2 Neut # (Auto) 17.0 H Lymph # (Auto) 0.4 L [place] # (Auto) 0.6 Eos # (Auto) 0.0 Baso # (Auto) 0.0 Neutrophils % (Manual) 74 Band Neutrophils % 19 H* Lymphocytes % (Manual) 2 L Monocytes % (Manual) 5 Platelet Estimate Normal Hypochromasia (manual) Poikilocytosis (manual Anisocytosis (manual) [place] Cells PT INR APTT Puncture Site pCO2 pO2 HCO3 ABG pH ABG Total CO2 ABG O2 Saturation ABG Base Excess [place] Test ABG Potassium A-a O2 Difference Respiratory Index Sodium 127 L Chloride 93 L Glucose Lactate Vent Mode Mechanical Rate FiO2 Tidal Volume PEEP Crit Value Called To Crit Value Called By Crit Value Read Back Blood Gas Notified Time Potassium 4.4 Carbon Dioxide 18 L Anion Gap 20 BUN 35 H Creatinine 2.1 H Est GFR ( Amer) 27 Est GFR (Non-Af Amer) 22 POC Glucose (mg/dL) 275 H Random Glucose 228 H D Lactic Acid Calcium 7.3 L Phosphorus 5.4 H Magnesium 1.8 Total Bilirubin 0.7 AST 428 H D ALT 384 H D Alkaline Phosphatase 126 D Total Creatine Kinase CK-MB (Mass) Troponin I 1.8400 H* Total Protein 5.1 L Albumin 2.8 L Globulin 2.3 Albumin/Globulin Ratio 1.2 Arterial Blood Potassium Urine Color Urine Clarity Urine pH Ur Specific [place] Urine Protein Urine Glucose (UA) Urine Ketones Urine Blood Urine Nitrate Urine Bilirubin Urine Urobilinogen Ur Leukocyte Esterase Urine WBC (Auto) Urine RBC (Auto) Urine Bacteria Urine Opiates Screen Urine Methadone Screen Ur Barbiturates Screen Ur Phencyclidine Scrn Ur Amphetamines Screen U Benzodiazepines Scrn U Oth Cocaine Metabols U Cannabinoids Screen 09/17/18 09/17/18 09/17/18 05:47 06:14 07:06 WBC RBC Hgb Hct MCV MCH MCHC RDW Plt Count MPV Neut % (Auto) Lymph % (Auto) [place] % (Auto) Eos % (Auto) Baso % (Auto) Neut # (Auto) Lymph # (Auto) [place] # (Auto) Eos # (Auto) Baso # (Auto) Neutrophils % (Manual) Band Neutrophils % Lymphocytes % (Manual) Monocytes % (Manual) Platelet Estimate Hypochromasia (manual) Poikilocytosis (manual Anisocytosis (manual) [place] Cells PT INR APTT Puncture Site pCO2 pO2 HCO3 ABG pH ABG Total CO2 ABG O2 Saturation ABG Base Excess [place] Test ABG Potassium A-a O2 Difference Respiratory Index Sodium Chloride Glucose Lactate Vent Mode Mechanical Rate FiO2 Tidal Volume PEEP Crit Value Called To Crit Value Called By Crit Value Read Back Blood Gas Notified Time Potassium Carbon Dioxide Anion Gap BUN Creatinine Est GFR ( Amer) Est GFR (Non-Af Amer) POC Glucose (mg/dL) 328 H 274 H Random Glucose Lactic Acid 7.6 H* Calcium Phosphorus Magnesium Total Bilirubin AST ALT Alkaline Phosphatase Total Creatine Kinase CK-MB (Mass) Troponin I Total Protein Albumin Globulin Albumin/Globulin Ratio Arterial Blood Potassium Urine Color Urine Clarity Urine pH Ur Specific [place] Urine Protein Urine Glucose (UA) Urine Ketones Urine Blood Urine Nitrate Urine Bilirubin Urine Urobilinogen Ur Leukocyte Esterase Urine WBC (Auto) Urine RBC (Auto) Urine Bacteria Urine Opiates Screen Urine Methadone Screen Ur Barbiturates Screen Ur Phencyclidine Scrn Ur Amphetamines Screen U Benzodiazepines Scrn U Oth Cocaine Metabols U Cannabinoids Screen 09/17/18 09/17/18 09/17/18 07:21 08:11 09:02 WBC RBC Hgb Hct MCV MCH MCHC RDW Plt Count MPV Neut % (Auto) Lymph % (Auto) [place] % (Auto) Eos % (Auto) Baso % (Auto) Neut # (Auto) Lymph # (Auto) [place] # (Auto) Eos # (Auto) Baso # (Auto) Neutrophils % (Manual) Band Neutrophils % Lymphocytes % (Manual) Monocytes % (Manual) Platelet Estimate Hypochromasia (manual) Poikilocytosis (manual Anisocytosis (manual) [place] Cells PT INR APTT Puncture Site pCO2 pO2 HCO3 ABG pH ABG Total CO2 ABG O2 Saturation ABG Base Excess [place] Test ABG Potassium A-a O2 Difference Respiratory Index Sodium Chloride Glucose Lactate Vent Mode Mechanical Rate FiO2 Tidal Volume PEEP Crit Value Called To Crit Value Called By Crit Value Read Back Blood Gas Notified Time Potassium Carbon Dioxide Anion Gap BUN Creatinine Est GFR ( Amer) Est GFR (Non-Af Amer) POC Glucose (mg/dL) 252 H 220 H 210 H Random Glucose Lactic Acid Calcium Phosphorus Magnesium Total Bilirubin AST ALT Alkaline Phosphatase Total Creatine Kinase CK-MB (Mass) Troponin I Total Protein Albumin Globulin Albumin/Globulin Ratio Arterial Blood Potassium Urine Color Urine Clarity Urine pH Ur Specific [place] Urine Protein Urine Glucose (UA) Urine Ketones Urine Blood Urine Nitrate Urine Bilirubin Urine Urobilinogen Ur Leukocyte Esterase Urine WBC (Auto) Urine RBC (Auto) Urine Bacteria Urine Opiates Screen Urine Methadone Screen Ur Barbiturates Screen Ur Phencyclidine Scrn Ur Amphetamines Screen U Benzodiazepines Scrn U Oth Cocaine Metabols U Cannabinoids Screen 09/17/18 09/17/18 10:06 10:33 WBC RBC Hgb Hct MCV MCH MCHC RDW Plt Count MPV Neut % (Auto) Lymph % (Auto) [place] % (Auto) Eos % (Auto) Baso % (Auto) Neut # (Auto) Lymph # (Auto) [place] # (Auto) Eos # (Auto) Baso # (Auto) Neutrophils % (Manual) Band Neutrophils % Lymphocytes % (Manual) Monocytes % (Manual) Platelet Estimate Hypochromasia (manual) Poikilocytosis (manual Anisocytosis (manual) [place] Cells PT INR APTT Puncture Site pCO2 pO2 HCO3 ABG pH ABG Total CO2 ABG O2 Saturation ABG Base Excess [place] Test ABG Potassium A-a O2 Difference Respiratory Index Sodium Chloride Glucose Lactate Vent Mode Mechanical Rate FiO2 Tidal Volume PEEP Crit Value Called To Crit Value Called By Crit Value Read Back Blood Gas Notified Time Potassium Carbon Dioxide Anion Gap BUN Creatinine Est GFR ( Amer) Est GFR (Non-Af Amer) POC Glucose (mg/dL) 168 H Random Glucose Lactic Acid Calcium Phosphorus Magnesium Total Bilirubin AST ALT Alkaline Phosphatase Total Creatine Kinase CK-MB (Mass) Troponin I Total Protein Albumin Globulin Albumin/Globulin Ratio Arterial Blood Potassium Urine Color Urine Clarity Urine pH Ur Specific [place] Urine Protein Urine Glucose (UA) Urine Ketones Urine Blood Urine Nitrate Urine Bilirubin Urine Urobilinogen Ur Leukocyte Esterase Urine WBC (Auto) Urine RBC (Auto) Urine Bacteria Urine Opiates Screen Negative Urine Methadone Screen Negative Ur Barbiturates Screen Negative Ur Phencyclidine Scrn Negative Ur Amphetamines Screen Negative U Benzodiazepines Scrn Negative U Oth Cocaine Metabols Negative U Cannabinoids Screen Negative Radiology Impressions: Radiology Impressions Head CT 09/16/18 08:55 IMPRESSION: No acute hemorrhage. Chest X-Ray 09/16/18 11:29 IMPRESSION: Patchy bilateral lower lobe infiltrates. Mild pulmonary venous congestion. Suspect tiny left pleural effusion. Endotracheal tube terminates approximately 2.3 cm above the simón, which is not well visualized. At least 2 external defibrillators. Hyperdensity noted within the right upper quadrant; correlate for possibility of oral contrast. Chest X-Ray 09/17/18 06:22 IMPRESSION: Endotracheal tube terminates approximately 2.5 cm above the simón. Elevated right hemidiaphragm. Patchy left-sided pulmonary infiltrates. Trace left pleural effusion. EKG/Cardiology Studies: Cardiology / EKG Studies 09/17/18 09:44 EKG [ELECTROCARDIOGRAM] Stat Comment: Mode Of Transportation: Reason For Exam: nstemi 09/16/18 12:12 EKG [ELECTROCARDIOGRAM] Stat Comment: Mode Of Transportation: Reason For Exam: arrest Fingerstick Blood Sugar Results: 210 Review of Systems - Review of Systems Systems not reviewed;Unavailable: Intubated Assessment/Plan - Assessment and Plan (Free Text) Assessment: Code freeze/Cardiac arrest: currently on code freeze protocol, continue to monitor to keep hemodynamic stability -NSTEMI: monitor trop, continue DAPT, hepairn on hold 2nd hematuria -Anoxic brain injury: repeat ct head when code freeze completed, neurology input -Hypercapneic respiratory failure:continue ventilation, decrease pCo2, repeat ABG, continue bronchodilators -Sepsis: currently on moxi, QTC prolonged (539), change to aztroenam + vanco + falgyl, cultures pending, serial lactic -LINDSEY/CKD: monitor urine output, avoid nephrotoxic drugs -hold tube feeds during code freeze -continue dvt/pud ppx -check and replace electrolytes Prognosis poor cc tie 38 minutes multiple labs pending - Date & Time Date: 09/17/18 Time: 11:37
[2018-09-17] MEDS: Aztreonam 2 GM in Sodium Chloride 0.9% 100 ML IVPB SCH ×2 (12:14→23:10)
[2018-09-17 12:19] LABS: BASO # 0.1 K/uL (0.0-0.2); BASO % 0.5 % (0.0-2.0); HEMOGLOBIN 11.1 g/dL (11.0-16.0); LYMPH # 0.5 K/uL (1.0-4.3); MEAN CELL VOLUME 89.7 fL (81.0-99.0); MEAN CORPUSCULAR HEMOGLOBIN 30.2 pg (27.0-31.0); MEAN CORPUSCULAR HGB CONC 33.7 g/dL (33.0-37.0); MEAN PLATELET VOLUME 7.7 fL (7.2-11.7); MONO # 0.6 K/uL (0.0-0.8); MONO % 3.8 % (0.0-10.0); NEUT # 14.9 K/uL (1.8-7.0); NEUT % 92.7 % (50.0-75.0); PLATELET COUNT 155 K/uL (130-400); RBC 3.68 Mil/uL (3.80-5.20); RED CELL DISTRIBUTION WIDTH 12.8 % (11.5-14.5); WHITE BLOOD COUNT 16.1 K/uL (4.8-10.8)
[2018-09-17 12:35] LABS: INR 1.7; PROTHROMBIN TIME 18.2 SECONDS (9.7-12.2)
[2018-09-17 12:49] LABS: ALB/GLOB RATIO 1.1 (1.0-2.1); ALBUMIN 2.6 g/dL (3.5-5.0)
[2018-09-17 12:50] LABS: BANDS 30 % (0-2); LYMPHOCYTE 4 % (20-40); MONOCYTE 3 % (0-10); NEUTROPHIL 63 % (50-75); PLATELET ESTIMATE NORMAL (NORMAL); TOTAL CELLS COUNTED 100
[2018-09-17 12:51] LABS: ANISOCYTOSIS SLIGHT; POIKILOCYTOSIS SLIGHT
[2018-09-17 12:52] LABS: BURR CELLS MODERATE; POLYCHROMIC SLIGHT; TOXIC GRANULATION PRESENT
[2018-09-17 12:53] LABS: LARGE PLATELETS PRESENT
[2018-09-17 12:59] LABS: TROPONIN I 1.27 ng/mL (0.00-0.120)
[2018-09-17] MEDS: metroNIDAZOLE IV 500 mg/100 ml 500 MG/100 ML BAG IVPB SCH ×2 (13:01→20:32)
[2018-09-17] MEDS ORDERED: Sodium Chloride 0.9% 1,000 ML IV ONE (18:30)
[2018-09-17 18:41] LABS: BASO % 0.1 % (0.0-2.0); EOS # 0.1 K/uL (0.0-0.7); EOS % 0.3 % (0.0-4.0); HEMOGLOBIN 11.2 g/dL (11.0-16.0); LYMPH # 0.5 K/uL (1.0-4.3); LYMPH % 2.8 % (20.0-40.0); MEAN CELL VOLUME 89.9 fL (81.0-99.0); MEAN CORPUSCULAR HEMOGLOBIN 29.3 pg (27.0-31.0); MEAN CORPUSCULAR HGB CONC 32.6 g/dL (33.0-37.0); MEAN PLATELET VOLUME 7.7 fL (7.2-11.7); MONO # 0.8 K/uL (0.0-0.8); MONO % 4.2 % (0.0-10.0); NEUT # 17.1 K/uL (1.8-7.0); NEUT % 92.6 % (50.0-75.0); PLATELET COUNT 160 K/uL (130-400); RBC 3.81 Mil/uL (3.80-5.20); WHITE BLOOD COUNT 18.4 K/uL (4.8-10.8)
[2018-09-17 18:54] LABS: INR 1.9; PROTHROMBIN TIME 20.3 SECONDS (9.7-12.2)
[2018-09-17 18:56] LABS: ALB/GLOB RATIO 1.2 (1.0-2.1); ALBUMIN 2.7 g/dL (3.5-5.0); CALCIUM 7.3 mg/dl (8.6-10.4)
--- NOTE | 2018-09-17 18:58 | PN ---
DATE: 09/17/2018 SUBJECTIVE: The patient is currently on Levophed infusion 5 mcg per minute. No reported ventricular tachycardia. Hematuria is improved as well as bloody aspiration from the nasogastric tube. PHYSICAL EXAMINATION VITAL SIGNS: Blood pressure 119/62, heart rate 98, temperature 92.2. HEENT: Normocephalic. CHEST: Bilateral rhonchi. HEART: S1 and S2 regular. EXTREMITIES: 1+ edema. LABORATORY DATA: Today's hemoglobin and hematocrit are 11.1 and 33.2, white count and platelet count are 16.1 and 155,000 respectively. Today's SMA-7: Sodium 128, potassium 4.4, chloride 93, CO2 of 21, glucose 113, BUN 37, creatinine 2.2. Troponin is 1.27. AST and ALT are 293 and 316 respectively. Alkaline phosphatase is within normal limits. 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 Today's chest x-ray: Endotracheal tube terminates 2.5 cm above the crania, elevated right hemidiaphragm, patchy left- sided pulmonary infiltrate, trace left pleural effusion. ASSESSMENT: 1. Status post cardiac arrest. The patient was reported to be in pulseless electrical activity at that time. The patient is in hypothermia protocol. 2. Improving hypotension. 3. Acute renal insufficiency. 4. Right heart failure. 5. Hyponatremia. RECOMMENDATIONS: The case was discussed at length for nearly 30 minutes with the patient's family. The patient will be maintained on aspirin and Plavix therapy for now. Continue IV Azactam 2 g every 12 hours and IV Flagyl 500 mg every 8 hours. Continue low-dose Levophed until the patient is weaned off Levophed. Continue IV vancomycin at 1 g that was ordered as a single dose today. Follow blood cultures which are negative after 24 hours so far and obtain venous Doppler of the lower extremities. The patient is not a suitable candidate for invasive cardiac workup at least at this time. Kyrie Carter MD
--- NOTE | 2018-09-17 19:03 | CP.PCM.PN ---
Subjective - Date & Time of Evaluation Date of Evaluation: 09/17/18 Time of Evaluation: 12:00 - Subjective Subjective: Hospitalist Progress Note Patient was seen and examined at 12 PM 09/17/18 ICU Bed 17 87 year old female who was intubated in the field by EMS after family found patient unconscious at home. She was admitted for further treatment and henrry luation of Cardiac Arrest/Respiratory Failure. Review of Systems is not possible secondary to patient is not arousable and intubated/on-vent HEENT: NCA, Pupils are sluggishly reactive to light, Nasal Turbinates are moist, NO cervical/submandibular/supraclavicular lymphadenopathy Cardio: Heart sounds are hard to hear Resp: CTA B/L, NO R/R/W however limited by lack of patient participation GI: BSx4 are decreased, Soft, Liver and Spleen were not palpated, ND Ext: NO edema noted, Pulses are strong and equal, Capillary Refill is 2 seconds Neuro: NO cornea reflex, NO gag reflex with suctioning Skin: NO ulcerations noted Patient has produced 7 to 8 ml/hr of urine Insulin Drip is currently running for better glucose control. NS with 1 amp NaHCO3 at 75 ml/hr Code Freeze from 7:30 PM 09/16/18 through 7:30 PM 09/17/18 EEG ordered for morning 09/18/18 considering findings on Neuro exam X Rays of Right Shoulder and the Bilateral Hip/Pelvis should be ordered and performed considering some bruising noted on Right Shoulder and Superior aspect of the Right Buttock Assessment and Plan: 1). S/P Cardiac Arrest Respiratory Failure Elevated Troponin * Norepinephrine 4 mcg/min * Duoneb Q6H * Plavix 75 mg NGT 1x/day * Echocardiogram: borderline concentric LVH, LVSF is normal with normal EF, Grade I abnormal relaxation pattern, RV is mildly dilated and moderate hypokinesis * CT Head: NO acute hemorrhage, Atrophy, Periventricular white matter changes * EEG ordered for morning 09/18/18 2). S/P Code Sepsis on 09/16/18 likely secondary to Left Side Pulmonary Infiltrate * Chest X Ray 09/17/18: patchy left sided infiltrates, trace left pleural effusion * Solumedrol 40 mg IV Q6H * Norepinephrine 4 mcg/min * Avelox 400 mg IV Q24H * F/U Blood Culture * F/U Urine Culture * F/U Rapid Influenza * F/U Mycomplasma IgM and IgG * F/U Urine Legionella Ag * F/U Urine Strep pneumonae 3). Shock Liver * Likely secondary to Cardiac Arrest * Continue to monitor LFTs Consultations: * Cardiology Dr. Carter * Palliative Care Nurse Mushtaq * Neurology: consider ordering this based upon results of EEG 09/18/18 floor coverings salesperson is Daughter Yanet ([phone]): she was at bedside and she has been updated as to current status. However she was understandably very upset throughout my conversation with her and therefore I do not feel that the details of the current care may have been fully grasped by her. Chun Zhong D.O. Objective - Vital Signs/Intake and Output Vital Signs (last 24 hours): Temp Pulse Resp BP Pulse Ox 91.3 F L 107 H 27 H 60/37 L 92 L 09/17/18 17:00 09/17/18 18:00 09/17/18 18:00 09/17/18 17:40 09/17/18 18:00 Intake and Output: 09/17/18 09/17/18 06:59 18:59 Intake Total 1400.5 2210.7 Output Total 23 Balance 1400.5 2187.7 - Medications Medications: Current Medications Albuterol/Ipratropium (Duoneb 3 Mg/0.5 Mg (3 Ml) Ud) 3 ml INH RQ6 [facility] Last Admin: 09/17/18 13:25 Dose: 3 ml Aspirin (Aspirin Chewable) 81 mg PO DAILY [facility] Last Admin: 09/17/18 10:55 Dose: 81 mg Clopidogrel Bisulfate (Plavix) 75 mg PO DAILY [facility] Last Admin: 09/17/18 10:55 Dose: 75 mg Famotidine (Pepcid) 20 mg IVP DAILY [facility] Last Admin: 09/17/18 11:06 Dose: Not Given Insulin Human Regular 100 unit (/ Sodium Chloride) 100 mls @ 0 mls/hr IV .Q0M PRN; Protocol PRN Reason: PER MD ORDER Last Titration: 09/17/18 12:10 Dose: 0 mls/hr, 0 mls/hr Sodium Bicarbonate 75 meq/ (Sodium Chloride) 1,075 mls @ 75 mls/hr IV .[id number] [facility] Last Admin: 09/17/18 10:37 Dose: 75 mls/hr Norepinephrine Bitartrate 8 mg (/ Sodium Chloride) 250 mls @ 7.5 mls/hr IV .Q24H PRN; Protocol PRN Reason: TITRATE PER MD ORDER Last Titration: 09/17/18 18:00 Dose: 12 mcg/min, 22.5 mls/hr Aztreonam 2 gm/ Sodium (Chloride) 100 mls @ 200 mls/hr IVPB Q12H [facility]; Protocol Last Admin: 09/17/18 12:14 Dose: 200 mls/hr Metronidazole (Flagyl) 500 mg in 100 mls @ 100 mls/hr IVPB Q8H [facility]; Protocol Last Admin: 09/17/18 13:01 Dose: 100 mls/hr Methylprednisolone (Solu-Medrol) 40 mg IVP Q6 [facility] Last Admin: 09/17/18 10:55 Dose: 40 mg - Labs Labs: 09/17/18 12:12 09/17/18 12:12 PT 18.2 SECONDS (9.7-12.2) H 09/17/18 12:12 INR 1.7 09/17/18 12:12 APTT 32 SECONDS (21-34) D 09/17/18 12:12
[2018-09-17 19:10] LABS: BANDS 34 % (0-2); LYMPHOCYTE 5 % (20-40); MONOCYTE 10 % (0-10); NEUTROPHIL 51 % (50-75); PLATELET ESTIMATE NORMAL (NORMAL); TOTAL CELLS COUNTED 100
[2018-09-17 19:11] LABS: BURR CELLS MODERATE
[2018-09-17] MEDS ORDERED: White Petrolatum/Mineral Oil Ophth Oint(3.5 gm) OU PRN (19:33)
[2018-09-17] MEDS ORDERED: Dextrose 50% SYRINGE Inj (50 ml) IV STA (21:09)
[2018-09-17 23:51] LABS: BANDS 19 % (0-2)
[2018-09-18 00:46] LABS: BASO % 0.1 % (0.0-2.0); EOS # 0.1 K/uL (0.0-0.7); EOS % 0.6 % (0.0-4.0); HEMOGLOBIN 10.4 g/dL (11.0-16.0); LYMPH # 0.8 K/uL (1.0-4.3); LYMPH % 4.9 % (20.0-40.0); MEAN CELL VOLUME 93.9 fL (81.0-99.0); MEAN CORPUSCULAR HEMOGLOBIN 30.3 pg (27.0-31.0); MEAN CORPUSCULAR HGB CONC 32.2 g/dL (33.0-37.0); MEAN PLATELET VOLUME 8.5 fL (7.2-11.7); MONO # 0.7 K/uL (0.0-0.8); MONO % 4.2 % (0.0-10.0); NEUT # 15.1 K/uL (1.8-7.0); NEUT % 90.2 % (50.0-75.0); PLATELET COUNT 143 K/uL (130-400); RBC 3.43 Mil/uL (3.80-5.20); RED CELL DISTRIBUTION WIDTH 13.4 % (11.5-14.5); WHITE BLOOD COUNT 16.7 K/uL (4.8-10.8)
[2018-09-18 00:57] LABS: INR 2.3; PROTHROMBIN TIME 24.7 SECONDS (9.7-12.2)
[2018-09-18 01:16] LABS: ALB/GLOB RATIO 1.1 (1.0-2.1); ALBUMIN 2.4 g/dL (3.5-5.0); CALCIUM 7.3 mg/dl (8.6-10.4)
[2018-09-18 02:30] LABS: BANDS 9 % (0-2); LYMPHOCYTE 4 % (20-40); MONOCYTE 5 % (0-10); NEUTROPHIL 82 % (50-75); PLATELET ESTIMATE NORMAL (NORMAL); TOTAL CELLS COUNTED 100
[2018-09-18 02:31] LABS: SCHISTOCYTES SLIGHT
[2018-09-18 02:32] LABS: ACANTHOCYTES MARKED; BURR CELLS MODERATE
[2018-09-18] MEDS ORDERED: Dextrose 50% SYRINGE Inj (50 ml) IV STA (03:09)
[2018-09-18] MEDS: Albuterol-Ipratrop 3 mg / 0.5 (3 ml) UD INH SCH (03:57)
[2018-09-18] MEDS ORDERED: Sodium Bicarbonate (8.4%) 50 mEq Vial ONE (04:20)
[2018-09-18] MEDS ORDERED: CALCIUM CHLORIDE 100 MG/ML VIAL IV ONE (04:20)
[2018-09-18] MEDS ORDERED: Calcium Chloride 1000 mg/10 ml Syringe IV ONE ×2 (04:46→05:00)
[2018-09-18] MEDS ORDERED: Albumin Human 25% (12.5 gm/50 ml) IV ONE (04:51)
[2018-09-18] MEDS ORDERED: Sodium Chloride 0.9% 500 ML IV ONE (04:52)
[2018-09-18] MEDS ORDERED: Sodium Bicarbonate (8.4%) 50 Meq Syringe IVP ONE ×2 (04:55→05:07)
[2018-09-18] MEDS: metroNIDAZOLE IV 500 mg/100 ml 500 MG/100 ML BAG IVPB SCH (05:00)
[2018-09-18] MEDS ORDERED: Sodium Bicarbonate 8.4% 150 MEQ in Dextrose 5% In Water 1,000 ML IV SCH (05:00)
[2018-09-18] MEDS ORDERED: [UNRECOGNIZED DRUG - OTHER] IV SCH (05:00)
[2018-09-18] MEDS ORDERED: SODIUM BICARBONATE IV SCH (05:00)
[2018-09-18] MEDS ORDERED: DEXTROSE IV SCH (05:00)
[2018-09-18 05:04] LABS: ARTERIAL BLOOD GAS HCO3 7.3 mmol/L (21-28); ARTERIAL BLOOD GAS O2 SAT 89.3 % (95-98); ARTERIAL BLOOD GAS PCO2 60 mm/Hg (35-45); ARTERIAL BLOOD GAS PO2 59 mm/Hg (80-100); ARTERIAL BLOOD GAS TCO2 13.6 mmol/L (22-28)
--- NOTE | 2018-09-18 05:07 | CP.PCM.PN ---
Subjective - Date & Time of Evaluation Date of Evaluation: 09/18/18 Time of Evaluation: 04:56 - Subjective Subjective: Responded to cardiac arrest started as 4:19am, with asystole, patient was on 2 pressors, in the rewarming stage of code freeze, was given 3 epi. 1 sodium bicarb, 1 calcium chloride, ROSC at 4:30 am. During CPR bloody secretions noticed from the ER which as discussed with staff were not present prior to the CPR hence trauma related. Post arrest, labs, including, abg, pt/ptt ordered, CXR ordered due to hemoptysis. One amp sodium bicarb, albumin 25g, saline 500ml blous, with bicarb drip in dextrose started due to worsening acidosis. Objective - Vital Signs/Intake and Output Vital Signs (last 24 hours): Temp Pulse Resp BP Pulse Ox 90.4 F L 82 24 125/93 H 88 L 09/18/18 04:00 09/18/18 04:00 09/18/18 04:00 09/18/18 04:00 09/18/18 01:00 Intake and Output: 09/17/18 09/18/18 18:59 06:59 Intake Total 2367.0 2501.8 Output Total 33 5 Balance 2334.0 2496.8 - Medications Medications: Current Medications Albumin Human (Albumin Human 25% (12.5 Gm/50 Ml)) 25 gm IV ONCE ONE Stop: 09/18/18 04:52 Albuterol/Ipratropium (Duoneb 3 Mg/0.5 Mg (3 Ml) Ud) 3 ml INH RQ6 [facility] Last Admin: 09/18/18 03:57 Dose: Not Given Artificial Tears (Lacri-Lube) 1 gm OU Q4H PRN PRN Reason: Dry eyes Last Admin: 09/17/18 20:32 Dose: 1 gm Aspirin (Aspirin Chewable) 81 mg PO DAILY [facility] Last Admin: 09/17/18 10:55 Dose: 81 mg Clopidogrel Bisulfate (Plavix) 75 mg PO DAILY [facility] Last Admin: 09/17/18 10:55 Dose: 75 mg Famotidine (Pepcid) 20 mg IVP DAILY [facility] Last Admin: 09/17/18 11:06 Dose: Not Given Insulin Human Regular 100 unit (/ Sodium Chloride) 100 mls @ 0 mls/hr IV .Q0M PRN; Protocol PRN Reason: PER MD ORDER Last Titration: 09/17/18 12:10 Dose: 0 mls/hr, 0 mls/hr Norepinephrine Bitartrate 8 mg (/ Sodium Chloride) 250 mls @ 7.5 mls/hr IV .Q24H PRN; Protocol PRN Reason: TITRATE PER MD ORDER Last Admin: 09/17/18 22:59 Dose: 20 mcg/min, 37.5 mls/hr Aztreonam 2 gm/ Sodium (Chloride) 100 mls @ 200 mls/hr IVPB Q12H [facility]; Protocol Last Admin: 09/17/18 23:10 Dose: 200 mls/hr Metronidazole (Flagyl) 500 mg in 100 mls @ 100 mls/hr IVPB Q8H [facility]; Protocol Last Admin: 09/17/18 20:32 Dose: 100 mls/hr Vasopressin 40 units/ Sodium (Chloride) 40 mls @ 0.6 mls/hr IV .Q24H [facility]; Protocol Last Titration: 09/18/18 03:30 Dose: 0.04 units/min, 2.4 mls/hr Sodium Bicarbonate 150 meq/ (Dextrose/Sodium Chloride) 1,150 mls @ 100 mls/hr IV .[id number] [facility] Sodium Chloride (Sodium Chloride 0.9%) 500 mls @ 1,000 mls/hr IV .Q30M ONE Stop: 09/18/18 05:21 Methylprednisolone (Solu-Medrol) 40 mg IVP Q6 [facility] Last Admin: 09/17/18 23:10 Dose: 40 mg Sodium Bicarbonate (Sodium Bicarbonate (8.4%) 50 Meq Syringe) 50 meq IVP ONCE ONE Stop: 09/18/18 04:56 - Labs Labs: 09/18/18 00:37 09/18/18 00:37 PT 24.7 SECONDS (9.7-12.2) H 09/18/18 00:37 INR 2.3 09/18/18 00:37 APTT 48 SECONDS (21-34) H D 09/18/18 00:37
[2018-09-18] MEDS: MethylPREDNISolone 40 mg Vial IVP SCH (05:10)
[2018-09-18] MEDS: Norepinephrine 8 MG in Sodium Chloride 0.9% 242 ML IV PRN (05:32)
[2018-09-18] MEDS ORDERED: Sodium Bicarbonate (8.4%) 50 Meq Syringe ONE (06:16)
--- NOTE | 2018-09-18 06:36 | CP.PCM.PRO ---
Pronouncement of Note - Clinical Findings Physical Exam: No Response Verbal/Painful Stimuli, Absent Peripheral Puls es{Carotid & Femoral}, Absent Heart & Breath Sounds, No Pupillary Light Reflex, No Corneal Reflex, Pupils Fixed & Dilated, Absence of Vital Signs - Notifications Pronouncement Notifications: Family Notified (Grand daughter MIRTHA) Traffic Safety Administrator Notified: No - Autopsy Autopsy Requested: No - [place] Number: [id number] Additional Comments: Patient had cardiac arrest at 6:08 am, cpr continued by ACLS protocol, additional bicarb and calcium chloride given due to acidosis, she didn't recover, pronounced at 6:24 am. Informed grand daughter about . Primary team being notified by the nursing.
--- NOTE | 2018-09-18 06:58 | CP.PCM.DIS ---
Provider - Provider Date of Admission: 09/16/18 09:13 Attending physician: Chun Zhong MD Consults: 09/16/18 08:55 Critical Care Consult Stat Comment: Consulting Provider: Sha Reich Consulting Physician: Sha Reich Reason for Consult: repiratory failure 09/16/18 09:13 Cardiology Consult Stat Comment: Consulting Provider: Michele Groves Consulting Physician: Michele Groves Reason for Consult: cardiac arrest 09/16/18 11:55 Palliative Care Consult Routine Comment: Consulting Provider: Екатерина Landin Physician Instructions: Reason For Exam: s/p cardiac arrest 09/16/18 12:03 Cardiology Consult Routine Comment: Consulting Provider: Kyrie Carter Consulting Physician: Kyrie Carter Reason for Consult: s/p cardiac arrest, pos trops 09/16/18 12:27 Pastoral Care Referral Routine Comment: Physician Instructions: Reason For Exam: s/p cardiac arrest Time Spent in preparation of Discharge (in minutes): 15 Hospital Course - Lab Results Lab Results: Micro Results 09/16/18 17:16 Urine,Pelayo Urine Culture - Final No Growth (<1,000 CFU/ML) 09/16/18 09:18 Urine,Catheterized Urine Culture - Final No Growth (<1,000 CFU/ML) 09/16/18 12:09 Nose MRSA Culture (Admit) - Final MRSA NOT DETECTED 09/17/18 10:33 Trachasp Gram Stain - Final 09/16/18 10:11 Blood Blood Culture - Preliminary NO GROWTH AFTER 24 HOURS 09/16/18 09:13 Blood Blood Culture - Preliminary NO GROWTH AFTER 24 HOURS Most Recent Lab Values WBC 16.7 K/uL (4.8-10.8) H 09/18/18 00:37 RBC 3.43 Mil/uL (3.80-5.20) L 09/18/18 00:37 Hgb 10.4 g/dL (11.0-16.0) L 09/18/18 00:37 Hct 32.2 % (34.0-47.0) L 09/18/18 00:37 MCV 93.9 fL (81.0-99.0) D 09/18/18 00:37 MCH 30.3 pg (27.0-31.0) 09/18/18 00:37 MCHC 32.2 g/dL (33.0-37.0) L 09/18/18 00:37 RDW 13.4 % (11.5-14.5) 09/18/18 00:37 Plt Count 143 K/uL (130-400) 09/18/18 00:37 MPV 8.5 fL (7.2-11.7) 09/18/18 00:37 Neut % (Auto) 90.2 % (50.0-75.0) H 09/18/18 00:37 Lymph % (Auto) 4.9 % (20.0-40.0) L 09/18/18 00:37 [place] % (Auto) 4.2 % (0.0-10.0) 09/18/18 00:37 Eos % (Auto) 0.6 % (0.0-4.0) 09/18/18 00:37 Baso % (Auto) 0.1 % (0.0-2.0) 09/18/18 00:37 Neut # (Auto) 15.1 K/uL (1.8-7.0) H 09/18/18 00:37 Lymph # (Auto) 0.8 K/uL (1.0-4.3) L 09/18/18 00:37 [place] # (Auto) 0.7 K/uL (0.0-0.8) 09/18/18 00:37 Eos # (Auto) 0.1 K/uL (0.0-0.7) 09/18/18 00:37 Baso # (Auto) 0.0 K/uL (0.0-0.2) 09/18/18 00:37 Neutrophils % (Manual) 82 % (50-75) H 09/18/18 00:37 Band Neutrophils % 9 % (0-2) H 09/18/18 00:37 Lymphocytes % (Manual) 4 % (20-40) L 09/18/18 00:37 Monocytes % (Manual) 5 % (0-10) 09/18/18 00:37 Toxic Granulation Present 09/17/18 12:12 Platelet Estimate Normal (NORMAL) 09/18/18 00:37 Large Platelets Present 09/17/18 12:12 Polychromasia Slight 09/17/18 12:12 Hypochromasia (manual) Slight 09/16/18 16:17 Poikilocytosis (manual Slight 09/17/18 12:12 Anisocytosis (manual) Slight 09/17/18 12:12 Bravo Cells Moderate 09/18/18 00:37 Acanthocytes (Spur) Marked 09/18/18 00:37 Schistocytes Slight 09/18/18 00:37 PT 24.7 SECONDS (9.7-12.2) H 09/18/18 00:37 INR 2.3 09/18/18 00:37 APTT 48 SECONDS (21-34) H D 09/18/18 00:37 Puncture Site Rb 09/18/18 04:58 pCO2 60 mm/Hg (35-45) H 09/18/18 04:58 pO2 59 mm/Hg (80-100) L 09/18/18 04:58 HCO3 7.3 mmol/L (21-28) L* 09/18/18 04:58 ABG pH 6.90 (7.35-7.45) L* 09/18/18 04:58 ABG Total CO2 13.6 mmol/L (22-28) L 09/18/18 04:58 ABG O2 Saturation 89.3 % (95-98) L 09/18/18 04:58 ABG Base Excess -21.5 mmol/L (-2.0-3.0) L 09/18/18 04:58 Bebo Test Na 09/18/18 04:58 ABG Potassium 7.8 mmol/L (3.6-5.2) H* 09/18/18 04:58 VBG pH 6.91 (7.32-7.43) L* 09/16/18 09:36 VBG pCO2 97 mmHg (40-60) H* 09/16/18 09:36 VBG HCO3 10.9 mmol/L 09/16/18 09:36 VBG Total CO2 22.4 mmol/L (22-28) 09/16/18 09:36 VBG O2 Sat (Calc) 28.0 % (40-65) L 09/16/18 09:36 VBG Base Excess -15.1 mmol/L (0.0-2.0) L 09/16/18 09:36 VBG Potassium 3.1 mmol/L (3.6-5.2) L 09/16/18 09:36 A-a O2 Difference 579.0 mm/Hg 09/18/18 04:58 Respiratory Index 9.8 09/18/18 04:58 Sodium 131.0 mmol/l (132-148) L 09/18/18 04:58 Chloride 98.0 mmol/L (98-107) 09/18/18 04:58 Glucose 99 mg/dl (65-105) 09/18/18 04:58 Lactate 19.2 mmol/L (0.7-2.1) H* 09/18/18 04:58 Vent Mode Prvc 09/18/18 04:58 Mechanical Rate 24 09/18/18 04:58 FiO2 100.0 % 09/18/18 04:58 Tidal Volume 450 09/18/18 04:58 PEEP 5 09/18/18 04:58 Crit Value Called To Dr. gottlieb 09/18/18 04:58 Crit Value Called By Juan Francisco professional services specialist 09/18/18 04:58 Crit Value Read Back Y 09/18/18 04:58 Blood Gas Notified Time 503 09/18/18 04:58 Sodium 129 mmol/L (132-148) L 09/18/18 00:37 Potassium 5.4 mmol/L (3.6-5.2) H 09/18/18 00:37 Chloride 96 mmol/L (98-107) L 09/18/18 00:37 Carbon Dioxide 13 mmol/L (22-30) L 09/18/18 00:37 Anion Gap 26 (10-20) H 09/18/18 00:37 BUN 36 mg/dL (7-17) H 09/18/18 00:37 Creatinine 2.2 mg/dL (0.7-1.2) H 09/18/18 00:37 Est GFR ( Amer) 26 09/18/18 00:37 Est GFR (Non-Af Amer) 09/18/18 00:37 POC Glucose (mg/dL) 51 mg/dL (65-110) L 09/18/18 06:20 Random Glucose 82 mg/dL (65-105) 09/18/18 00:37 Lactic Acid 12.0 mmol/L (0.7-2.1) H* 09/18/18 00:38 Calcium 7.3 mg/dl (8.6-10.4) L 09/18/18 00:37 Phosphorus 8.5 mg/dL (2.5-4.5) H 09/18/18 00:37 Magnesium 2.4 mg/dL (1.6-2.3) H 09/18/18 00:37 Total Bilirubin 1.0 mg/dL (0.2-1.3) 09/18/18 00:37 AST 242 U/L (14-36) H 09/18/18 00:37 ALT 250 U/L (9-52) H 09/18/18 00:37 Alkaline Phosphatase 106 U/L (38-126) 09/18/18 00:37 Total Creatine Kinase 121 U/L (30-135) 09/16/18 16:17 CK-MB (Mass) 8.51 ng/mL (0.0-3.38) H 09/16/18 16:17 Troponin I 1.2700 ng/mL (0.00-0.120) H* 09/17/18 12:12 NT-Pro-B Natriuret Pep 2640 pg/mL (0-900) H 09/16/18 09:13 Total Protein 4.6 g/dL (6.3-8.3) L 09/18/18 00:37 Albumin 2.4 g/dL (3.5-5.0) L 09/18/18 00:37 Globulin 2.2 gm/dL (2.2-3.9) 09/18/18 00:37 Albumin/Globulin Ratio 1.1 (1.0-2.1) 09/18/18 00:37 TSH 3rd Generation 0.30 mIU/L (0.46-4.68) L 09/16/18 09:13 Arterial Blood Potassium 7.8 mmol/L (3.6-5.2) H* 09/18/18 04:58 Venous Blood Potassium 3.1 mmol/L (3.6-5.2) L 09/16/18 09:36 Urine Color Clara (YELLOW) 09/16/18 17:16 Urine Clarity Hazy (Clear) 09/16/18 17:16 Urine pH 6.0 (5.0-8.0) 09/16/18 17:16 Ur Specific [place] 1.011 (1.003-1.030) 09/16/18 17:16 Urine Protein 2+ mg/dL (NEGATIVE) H 09/16/18 17:16 Urine Glucose (UA) Normal mg/dL (Normal) 09/16/18 17:16 Urine Ketones Negative mg/dL (NEGATIVE) 09/16/18 17:16 Urine Blood 3+ (NEGATIVE) H 09/16/18 17:16 Urine Nitrate Positive (NEGATIVE) H 09/16/18 17:16 Urine Bilirubin Negative (NEGATIVE) 09/16/18 17:16 Urine Urobilinogen 4.0 mg/dL (0.2-1.0) H 09/16/18 17:16 Ur Leukocyte Esterase Trace Shawna/uL (Negative) H 09/16/18 17:16 Urine WBC (Auto) 11 /hpf (0-5) H 09/16/18 17:16 Urine RBC (Auto) 589 /hpf (0-3) H 09/16/18 17:16 Urine Bacteria Occ (<OCC) H 09/16/18 17:16 Random Vancomycin < 5.0 ug/mL 09/17/18 12:12 Urine Opiates Screen Negative (NEGATIVE) 09/17/18 10:33 Urine Methadone Screen Negative (NEGATIVE) 09/17/18 10:33 Ur Barbiturates Screen Negative (NEGATIVE) 09/17/18 10:33 Ur Phencyclidine Scrn Negative (NEGATIVE) 09/17/18 10:33 Ur Amphetamines Screen Negative (NEGATIVE) 09/17/18 10:33 U Benzodiazepines Scrn Negative (NEGATIVE) 09/17/18 10:33 U Oth Cocaine Metabols Negative (NEGATIVE) 09/17/18 10:33 U Cannabinoids Screen Negative (NEGATIVE) 09/17/18 10:33 Influenza Typ A,B (EIA) Negative for flu a/b (NEGATIVE) 09/17/18 12:12 Ur L.pneumophila Ag Negative (NEGATIVE) 09/17/18 18:37 - Hospital Course Hospital Course: Patient following 2 code blues 09/17/17 at 6:24am From last progress note: 87 year old female who was intubated in the field by EMS after family found patient unconscious at home. She was admitted for further treatment and evaluation of Cardiac Arrest/Respiratory Failure. Review of Systems is not possible secondary to patient is not arousable and intubated/on-vent A & P: 1). S/P Cardiac Arrest Respiratory Failure Elevated Troponin * Norepinephrine 4 mcg/min * Duoneb Q6H * Plavix 75 mg NGT 1x/day * Echocardiogram: borderline concentric LVH, LVSF is normal with normal EF, Grade I abnormal relaxation pattern, RV is mildly dilated and moderate hypokinesis * CT Head: NO acute hemorrhage, Atrophy, Periventricular white matter changes * EEG ordered for morning 09/18/18 2). S/P Code Sepsis on 09/16/18 likely secondary to Left Side Pulmonary Infiltrate * Chest X Ray 09/17/18: patchy left sided infiltrates, trace left pleural effusion * Solumedrol 40 mg IV Q6H * Norepinephrine 4 mcg/min * Avelox 400 mg IV Q24H * F/U Blood Culture * F/U Urine Culture * F/U Rapid Influenza * F/U Mycomplasma IgM and IgG * F/U Urine Legionella Ag * F/U Urine Strep pneumonae 3). Shock Liver * Likely secondary to Cardiac Arrest * Continue to monitor LFTs Consultations: * Cardiology Dr. Carter * Palliative Care Nurse Mushtaq * Neurology: consider ordering this based upon results of EEG 09/18/18 Discharge Exam - Head Exam Head Exam: ATRAUMATIC, NORMAL INSPECTION, NORMOCEPHALIC - Additional Findings Additional findings: Exam from last progress note: HEENT: NCA, Pupils are sluggishly reactive to light, Nasal Turbinates are moist, NO cervical/submandibular/supraclavicular lymphadenopathy Cardio: Heart sounds are hard to hear Resp: CTA B/L, NO R/R/W however limited by lack of patient participation GI: BSx4 are decreased, Soft, Liver and Spleen were not palpated, ND Ext: NO edema noted, Pulses are strong and equal, Capillary Refill is 2 seconds Neuro: NO cornea reflex, NO gag reflex with suctioning Skin: NO ulcerations noted Discharge Plan - Follow Up Plan Condition: SERIOUS Disposition: WITH WITHOUT AUTOPSY
[2018-09-18 07:12] VITALS: O2SAT 83
[2018-09-18 07:15] VITALS: BP 127/65; PULSE 65; RESP 23; TEMP 90.5
--- NOTE | 2018-09-18 10:14 | RAD ---
Date of service: 09/18/2018 HISTORY: intubated COMPARISON: Portable chest 09/17/2018 7:11 a.m.. FINDINGS: LUNGS: Cooling blanket or other artifact obscures entire image. Endotracheal and nasogastric tubes do not appear significantly changed in position. External pacemaker remains in position. Bilateral pulmonary opacity is unchanged at the mid to inferior lung zones bilaterally, right greater than left with increasing right suprahilar patchy density now identified. Left perihilar patchy density is less apparent. PLEURA: No apparent pneumothorax bilaterally. Bilateral small pleural effusions are not significantly changed. CARDIOVASCULAR: Calcific atherosclerotic changes are seen related to the thoracic aorta. Cardiac silhouette is obscured. At least mild underlying pulmonary vascular congestion is not excluded. OSSEOUS STRUCTURES: No significant abnormalities. VISUALIZED UPPER ABDOMEN: Normal. OTHER FINDINGS: None. IMPRESSION: Increasing right infiltrate with slightly diminished left infiltrate. At least mild pulmonary vascular congestion identified. Normal change in small bilateral pleural effusions. Continued clinical and radiographic monitoring are advised. Heavily artifacted exam limits interpretation.
--- NOTE | 2018-09-18 12:58 | CP.PCM.PCO ---
Physician Communication Note - Physician Communication Note Physician Communication Note: Patient's Certificate has be certified. [facility] Case #: [id number]
[2018-09-18 20:40] LABS: N MENINGITIS ACY/W135 NEGATIVE (NEGATIVE); N MENINGITIS B/ECOLI K1 NEGATIVE (NEGATIVE); STREP PNEUMONIAE NEGATIVE (NEGATIVE); STREPTOCOCCUS B NEGATIVE (NEGATIVE)
--- NOTE | 2018-09-19 10:22 | CARD ---
APPROVED REPORT Date of service: 09/16/2018 EKG Measurement Heart [id number] MD [id number] <Conclusion> ?Sinus tachycardia with fusion complexes; would exclude atrial flutter Right bundle branch block Left posterior fascicular block Bifascicular block Abnormal ECG
== END 2018-09-18 06:24 | DRG 871 ==
LOC: C.ER 08:43 → C.9I 09:13
PROVIDERS: ADMIT Family Medicine; ATTEND Family Medicine
PROC: 5A1945Z Respiratory Ventilation, 24-96 Consecutive Hours (ICD-10-PCS; 2018-09-16)
PROC: 5A12012 Performance of Cardiac Output, Single, Manual (ICD-10-PCS; principal; 2018-09-18)
DX: A41.9 Sepsis, unspecified organism (principal); K72.00 Acute and subacute hepatic failure without coma; I21.4 Non-ST elevation (NSTEMI) myocardial infarction; J96.92 Respiratory failure, unspecified with hypercapnia; E87.1 Hypo-osmolality and hyponatremia; E87.2 Acidosis; I13.0 Hypertensive heart and chronic kidney disease with heart failure and stage 1 through stage 4 chronic kidney disease, or unspecified chronic kidney disease; N39.0 Urinary tract infection, site not specified; G93.1 Anoxic brain damage, not elsewhere classified; R04.2 Hemoptysis; D64.9 Anemia, unspecified; F32.9 Major depressive disorder, single episode, unspecified; F41.9 Anxiety disorder, unspecified; I46.9 Cardiac arrest, cause unspecified; I50.810 Right heart failure, unspecified; J43.9 Emphysema, unspecified; J45.909 Unspecified asthma, uncomplicated; M81.0 Age-related osteoporosis without current pathological fracture; N18.9 Chronic kidney disease, unspecified; R40.2434 Glasgow coma scale score 3-8, 24 hours or more after hospital admission